=== PATIENT | female | born 1950 | race American Indian/Alaskan Native ===

== ENCOUNTER 2016-12-02 01:27 | Inpatient (IN) | payer BC, MEDICARE ==
--- NOTE | 2016-12-02 01:43 | C.PDOC ---
History Of Present Illness patient states she drank a quart and half of milk on thursday, and then developed nausea and vomiting. Has been taking pepto bismol, without relief. Starting having bilious emesis, 4/10 discomfort.. No chest pain or palpitations Time Seen by Provider: 12/02/16 01:42 Chief Complaint (Nursing): Abdominal Pain History Per: Patient History/Exam Limitations: no limitations Onset/Duration Of Symptoms: Days (3) Current Symptoms Are (Timing): Still Present Context: Other Severity: Moderate Pain Scale Rating Of: 4 Location Of Pain/Discomfort: Epigastric Radiation Of Pain To:: None Quality Of Discomfort: Dull, Aching, Cramping Associated Symptoms: Nausea, Vomiting. denies: Fever, Chills, Diarrhea Exacerbating Factors: None Alleviating Factors: None Last Bowel Movement: Yesterday Recent travel outside of the [place]: No Additional History Per: Patient Past Medical History Reviewed: Historical Data, Nursing Documentation, Vital Signs Vital Signs: Last Vital Signs Temp 98.3 F 12/02/16 03:48 Pulse 101 H 12/02/16 06:58 Resp 24 12/02/16 06:58 BP 147/94 H 12/02/16 06:58 Pulse Ox 98 12/02/16 06:58 - Medical History PMH: HTN Family History: States: No Known Family Hx - Social History Hx Alcohol Use: No Hx Substance Use: No Review Of Systems Constitutional: Negative for: Fever, Chills Eyes: Negative for: Redness ENT: Negative for: Throat Pain Cardiovascular: Negative for: Chest Pain Respiratory: Negative for: Shortness of Breath Gastrointestinal: Positive for: Nausea, Vomiting, Abdominal Pain Genitourinary: Negative for: Dysuria Musculoskeletal: Negative for: Back Pain Skin: Negative for: Bruising Neurological: Negative for: Weakness Psych: Negative for: Anxiety Physical Exam - Physical Exam Appears: Non-toxic, No Acute Distress Skin: Warm, Dry Head: Normacephalic Eye(s): bilateral: Normal Inspection Oral Mucosa: Moist Neck: Supple Chest: Symmetrical Cardiovascular: Rhythm Regular Respiratory: No Rales, No Rhonchi, No Wheezing Gastrointestinal/Abdominal: Soft, Tenderness, Distention, No Guarding, No Rebound, Hernia (large , reducible umbilical hernia) Back: No CVA Tenderness Extremity: Normal ROM Extremity: Bilateral: Atraumatic, Normal Color And Temperature Pulses: Left Dorsalis Pedis: Normal, Right Dorsalis Pedis: Normal Neurological/Psych: Oriented x3, Normal Speech, Normal Cognition Gait: Steady ED Course And Treatment - Laboratory Results Result Diagrams: 12/02/16 01:58 12/02/16 01:58 ECG: Interpreted By Me, Viewed By Me ECG Rhythm: Sinus Rhythm (107), Nonspecific Changes (occ pvc's, lad, lvh, ) O2 Sat by Pulse Oximetry: 100 Pulse Ox Interpretation: Normal Disposition Counseled Patient/Family Regarding: Studies Performed, Diagnosis - Disposition Disposition Time: 01:43 Condition: FAIR Forms: [facility] (Italian) - Clinical Impression Clinical Impression: Abdominal pain, SBO (small bowel obstruction) Physician Patient Turnover Patient Signed Over To: Ana Maria Khan Handoff Comments: pending call back and disposition
[2016-12-02 02:01] LABS: BASO % 0.4 % (0.0-2.0); EOS # 0.1 K/uL (0.0-0.7); EOS % 0.6 % (0.0-4.0); HEMATOCRIT 35.4 % (34.0-47.0); LYMPH # 1.9 K/uL (1.0-4.3); LYMPH % 19.3 % (20.0-40.0); MEAN CELL VOLUME 76.2 fL (81.0-99.0); MEAN CORPUSCULAR HEMOGLOBIN 25.7 pg (27.0-31.0); MEAN CORPUSCULAR HGB CONC 33.7 g/dL (33.0-37.0); MEAN PLATELET VOLUME 7.2 fL (7.2-11.7); MONO # 0.8 K/uL (0.0-0.8); MONO % 8.4 % (0.0-10.0); NRBC % 0.1 % (0.0-2.0); WHITE BLOOD COUNT 9.9 K/uL (4.8-10.8)
[2016-12-02 02:11] LABS: INR 1.1
[2016-12-02 02:20] LABS: ALB/GLOB RATIO 0.9 (1.0-2.1); BILIRUBIN,TOTAL 1.2 mg/dL (0.2-1.3); CALCIUM 10.2 mg/dl (8.6-10.4)
[2016-12-02 02:31] LABS: TROPONIN I 0.033 ng/mL (0.00-0.120)
[2016-12-02 02:42] LABS: POTASSIUM 4.2 mmol/L (3.6-5.2)
[2016-12-02] MEDS ORDERED: Sodium Chloride 0.9% 1,000 ML IV ONE (02:43)
[2016-12-02] MEDS ORDERED: Iodixanol 320 mg/ml 150 ml Bottle IV ONE (02:53)
[2016-12-02] MEDS ORDERED: Morphine 4 MG/ML VIAL ONE ×3 (03:53→13:10)
--- NOTE | 2016-12-02 08:29 | CT ---
PROCEDURE: CT Abdomen and Pelvis without intravenous contrast HISTORY: Abdominal pain, nausea and vomiting, umbilical hernia COMPARISON: None. TECHNIQUE: Multiple contiguous axial images were performed through the abdomen and pelvis without intravenous contrast. Subsequently, sagittal and coronal reformatted images were obtained. Radiation dose: Total exam DLP = 1085 mGy-cm. This CT exam was performed using one or more of the following dose reduction techniques: Automated exposure control, adjustment of the mA and/or kV according to patient size, and/or use of iterative reconstruction technique. FINDINGS: LOWER THORAX: Mild scattered atelectasis. Coronary calcifications. LIVER: Unremarkable. No gross lesion or ductal dilatation. GALLBLADDER AND BILE DUCTS: Unremarkable. PANCREAS: Atrophic pancreas. SPLEEN: Unremarkable. ADRENALS: Unremarkable. No mass. KIDNEYS AND URETERS: Mild right hydroureteronephrosis without definite obstructing ureteral calculus. Within the region of the distal right ureter, there is a rounded calcific foci measuring 4 millimeters on series 3, image 141 which may represent adjacent calcified phlebolith and/or vascular calcification. VASCULATURE: Scattered atherosclerotic calcifications. BOWEL: High-grade mechanical small bowel obstruction. Majority of the small bowel is fluid-filled and dilated measuring up to 4.5 centimeters. Transition point identified in the neck of the large umbilical hernia. Terminal ileum and colon are decompressed. Few scattered colonic diverticuli are noted. Portion of the mid transverse colon extends into the hernia sac. APPENDIX: No findings to suggest acute appendicitis. PERITONEUM: See below. LYMPH NODES: Unremarkable. No enlarged lymph nodes. BLADDER: Underdistended urinary bladder. REPRODUCTIVE: Fibroid uterus. Trace free fluid within the pelvic cul-de-sac. BONES: Degenerative changes in the spine. OTHER FINDINGS: Vascular calcifications. IMPRESSION: Findings concerning for a high-grade mechanical small bowel obstruction as described above with transition point at the neck of a large umbilical hernia. Clinical correlation for symptoms of incarceration and or strangulation recommended. Mild to moderate right hydroureteronephrosis. Fibroid uterus. Trace free fluid in the pelvic cul-de-sac. Additional findings as above. These findings were preliminarily reported at 4:46 a.m. on 12/02/[address] Rebecca Ray from [facility].
[2016-12-02] MEDS ORDERED: Oxycodone/Acetaminophen 5/325 mg Tab PO PRN (08:56)
--- NOTE | 2016-12-02 08:57 | CP.PCM.CON ---
History of Present Illness - History of Present Illness History of Present Illness: Surgery 66F w PMH of HTN came to ED with Abd Pain, N,V. Symptoms started 4 days ago after eating. Pain is diffuse, non radiating. Non bloody vomiting multiple times. NG tube is placed in ED put out 300cc bilious fluids. Pt tried peptobismal w/o relief. Pt reports having small BM. Denies F/C/D/CP/SOB/dysuria/ hematuriea/hematemesis/hematochezia. Pt had umbilical hernia for a long time. Haven't noticed change in size. CT shows bowel incarcerated umbilical hernia with SBo. Surgery is consulted to evaluate for incarcerated hernia. Pt is scheduled to go to OR for emergent surgery. Pt consented and understood the procedure. Review of Systems - Review of Systems Review of Systems: See HPI Past Patient History - Past Social History Smoking Status: Never Smoked - CARDIAC Hx Hypertension: Yes - GASTROINTESTINAL Other/Comment: HERNIA - PSYCHIATRIC Hx Substance Use: No - SURGICAL HISTORY Hx Surgeries: No Meds Allergies/Adverse Reactions: Allergies Allergy/AdvReac Type Severity Reaction Status Date / Time Penicillins Allergy Verified 12/02/16 01:38 - Medications Medications: Current Medications Hydromorphone HCl (Dilaudid) 0.5 mg IVP Q4H PRN PRN Reason: Pain, severe (8-10) Lactated Ringer's (Lactated Ringer's) 1,000 mls @ 150 mls/hr IV .Q6H40M [facility] Oxycodone/Acetaminophen (Percocet 5/325 Mg Tab) 2 tab PO Q4H PRN PRN Reason: Pain, moderate (4-7) Stop: 12/05/16 08:57 Pantoprazole Sodium (Protonix Inj) 40 mg IVP DAILY [facility] Physical Exam - Constitutional Appears: Non-toxic - Head Exam Head Exam: ATRAUMATIC, NORMAL INSPECTION, NORMOCEPHALIC - Eye Exam Eye Exam: EOMI, Normal appearance, PERRL Pupil Exam: NORMAL ACCOMODATION, PERRL - ENT Exam ENT Exam: Mucous Membranes Moist, Normal Exam - Neck Exam Neck exam: Positive for: Normal Inspection - Respiratory Exam Respiratory Exam: Clear to Auscultation Bilateral, NORMAL BREATHING PATTERN - Cardiovascular Exam Cardiovascular Exam: REGULAR RHYTHM - GI/Abdominal Exam GI & Abdominal Exam: Distended, Hernia, Normal Bowel Sounds, Soft, Tenderness. absent: Firm, Guarding Additional comments: 17m38sp incarcerated umbilical hernia. Mild erythema. TTP. - Extremities Exam Extremities exam: Positive for: full ROM, normal inspection - Back Exam Back exam: NORMAL INSPECTION - Neurological Exam Neurological exam: Alert, CN II-XII Intact, Normal Gait, Oriented x3, Reflexes Normal - Psychiatric Exam Psychiatric exam: Normal Affect, Normal Mood - Skin Skin Exam: Dry, Erythema, Intact, Warm Results - Vital Signs Recent Vital Signs: Last Vital Signs Temp 98.4 F 12/02/16 08:44 Pulse 105 H 12/02/16 08:44 Resp 20 12/02/16 08:44 BP 145/98 H 12/02/16 08:44 Pulse Ox 99 12/02/16 08:44 - Labs Result Diagrams: 12/02/16 01:58 12/02/16 01:58 Labs: Laboratory Results - last 24 hr 12/02/16 12/02/16 12/02/16 01:58 01:58 01:58 WBC 9.9 RBC 4.64 Hgb 11.9 Hct 35.4 MCV 76.2 L MCH 25.7 L MCHC 33.7 RDW 17.0 H Plt Count 734 H MPV 7.2 Neut % (Auto) 71.3 Lymph % (Auto) 19.3 L [place] % (Auto) 8.4 Eos % (Auto) 0.6 Baso % (Auto) 0.4 Neut # 7.1 H Lymph # 1.9 [place] # 0.8 Eos # 0.1 Baso # 0.0 PT 12.4 H INR 1.1 APTT 25 Sodium 140 Potassium 4.2 Chloride 95 L Carbon Dioxide 18 L Anion Gap 31 H BUN 47 H Creatinine 2.5 H Est GFR ( Amer) 23 Est GFR (Non-Af Amer) 19 Random Glucose 154 H Calcium 10.2 Total Bilirubin 1.2 AST 42 H ALT 21 Alkaline Phosphatase 94 Troponin I 0.0330 Total Protein 10.0 H Albumin 4.6 Globulin 5.4 H Albumin/Globulin Ratio 0.9 L Lipase 69 Assessment & Plan - Assessment and Plan (Free Text) Assessment: SBO with incarcerated umbilical hernia -OR today ex lap 11AM -NPO -IVF -NGT : low cont suction -Pain/nausea control -medical management NOMI Morales
[2016-12-02] MEDS ORDERED: Lactated Ringer's 1,000 ML IV SCH ×2 (09:00→16:15)
[2016-12-02] MEDS ORDERED: Lactated Ringer's 1,000 ML ONE (09:17)
--- NOTE | 2016-12-02 09:31 | RAD ---
HISTORY: pre-op COMPARISON: 12/02/2016 FINDINGS: LUNGS: Mild venous congestion. Elevated right hemidiaphragm. NG tube extending into the stomach. Distal tip not well visualized. PLEURA: No significant pleural effusion identified, no pneumothorax apparent. CARDIOVASCULAR: Mild cardiomegaly. OSSEOUS STRUCTURES: Degenerative changes in the spine and shoulders. VISUALIZED UPPER ABDOMEN: Normal. OTHER FINDINGS: None. IMPRESSION: Mild venous congestion. Elevated right hemidiaphragm. NG tube extending into the stomach. Distal tip not well visualized.
--- NOTE | 2016-12-02 09:40 | CP.PCM.PN ---
Subjective - Date & Time of Evaluation Date of Evaluation: 12/02/16 Time of Evaluation: 09:38 - Subjective Subjective: PT SEEN IN THE ED HOLDING AREA WITH DR. SANCHEZ DURING MORNING ROUNDS. + NGT IN PLACE AND TOLERATING WELL. FAMILY AT BEDSIDE. 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 ROCHA AT APPROX 1100 AM TODAY FOR SBO. IVFS ORDERED BY HOLLOW WARE MAKER. AM LABS ORDERED. VTE PROPHYLAXIS ORDERED. WILL F/U WITH PT ONCE SHE COMES TO THE MED SURG FLOOR. NO FURTHER ORDERS AT THIS TIME. Objective - Vital Signs/Intake and Output Vital Signs (last 24 hours): Temp Pulse Resp BP Pulse Ox 98.4 F 105 H 20 145/98 H 99 12/02/16 08:44 12/02/16 08:44 12/02/16 08:44 12/02/16 08:44 12/02/16 08:44 Intake and Output: 12/02/16 12/02/16 06:59 18:59 Output Total 400 Balance -400 - Medications Medications: Current Medications Hydromorphone HCl (Dilaudid) 0.5 mg IVP Q3H PRN PRN Reason: Pain, moderate (4-7) Lactated Ringer's (Lactated Ringer's) 1,000 mls @ 150 mls/hr IV .Q6H40M [facility] Last Admin: 12/02/16 09:32 Dose: 150 mls/hr Pantoprazole Sodium (Protonix Inj) 40 mg IVP DAILY [facility] - Labs Labs: 12/02/16 01:58 12/02/16 01:58 PT 12.4 SECONDS (9.7-12.2) H 12/02/16 01:58 INR 1.1 12/02/16 01:58 APTT 25 SECONDS (21-34) 12/02/16 01:58
[2016-12-02] MEDS ORDERED: Propofol 10 mg/ml Inj (20 ML) ONE ×3 (11:01→15:01)
[2016-12-02] MEDS ORDERED: Lactated Ringer's 1,000 ML IV ONE ×5 (11:50→18:00)
[2016-12-02] MEDS ORDERED: Ciprofloxacin 400mg/200ml D5W 400 MG/200 ML BAG IVPB ONE (12:09)
[2016-12-02] MEDS ORDERED: metroNIDAZOLE IV 500 mg/100 ml 500 MG/100 ML BAG ONE (12:09)
[2016-12-02] MEDS ORDERED: Succinylcholine Chloride 20 mg/ml Syr (5 ml) IV ONE (13:16)
[2016-12-02] MEDS ORDERED: Rocuronium 10 mg/ml (5 ml) ONE (13:16)
[2016-12-02] MEDS ORDERED: Neostigmine Methylsulfate 3mg/3ml Syringe IV ONE (13:17)
[2016-12-02] MEDS ORDERED: White Petrolatum/Mineral Oil Ophth Oint(3.5 gm) ONE (13:17)
[2016-12-02] MEDS ORDERED: Albuterol-Ipratrop 3 mg / 0.5 (3 ml) UD INH STA ×2 (14:45)
[2016-12-02] MEDS ORDERED: Albuterol-Ipratrop 3 mg / 0.5 (3 ml) UD ONE (14:49)
--- NOTE | 2016-12-02 14:49 | PCM.SURG1 ---
Surgeon's Initial Post Op Note - Surgeon's Notes Surgeon: Dr. Winter Mushroom Cultivator: Dr. Mabry PGY3, Dr. Cm PGY1 Type of Anesthesia: General Endo Pre-Operative Diagnosis: Incarcerated ventral hernia, Bowel obstruction Operative Findings: incarcerated umbilical hernia, containing colon and omentum Post-Operative Diagnosis: Incarcerated Umbilical hernia Operation Performed: Umbilical hernia repair with mesh Specimen/Specimens Removed: ventrio mesh inserted Estimated Blood Loss: EBL {In ML}: 30 Blood Products Given: N/A Drains Used: No Drains Post-Op Condition: Good Date of Surgery/Procedure: 12/02/16 Time of Surgery/Procedure: 14:51
[2016-12-02] MEDS ORDERED: Propofol 10 mg/ml 1,000 MG/100 ML VIAL IV PRN (15:01)
--- NOTE | 2016-12-02 15:43 | RAD ---
PROCEDURE: CHEST RADIOGRAPH, 1 VIEW HISTORY: PT IN PACU COMPARISON: 12/02/2016 0900 hours FINDINGS: LUNGS: Interval left upper lobe peripheral opacity - atelectasis with left pleural reaction suspect PLEURA: No pneumothorax or pleural fluid seen. CARDIOVASCULAR: Normal. OSSEOUS STRUCTURES: No significant abnormalities. VISUALIZED UPPER ABDOMEN: Normal. OTHER FINDINGS: Interval insertion endotracheal tube- tip 2 cm cephalad to peter NG tube tip in stomach Asymmetrically elevated right hemidiaphragm-unchanged IMPRESSION: Interval opacity lateral left upper lung given short interval time frame atelectasis with or without left pleural reaction favored. Interval insertion endotracheal tube -tip position 2 cm cephalad to peter NG tube tip in stomach
[2016-12-02 16:57] LABS: RBC URINE 3 /hpf (0-3); URINE BACTERIA RARE (<OCC); URINE BILIRUBIN NEGATIVE (NEGATIVE); URINE BLOOD NEGATIVE (NEGATIVE); URINE COLOR Yellow (YELLOW); URINE GLUCOSE (UA) NORMAL (Normal); URINE KETONE NEGATIVE (NEGATIVE); URINE LEUKOCYTE ESTERASE NEG Leu/uL (Negative); URINE PROTEIN 1+ mg/dL (NEGATIVE); URINE UROBILINOGEN NORMAL mg/dL (0.2-1.0); WBC URINE 6 /hpf (0-5)
[2016-12-02] MEDS ORDERED: Propofol 10 mg/ml 1,000 MG/100 ML VIAL ONE (17:36)
[2016-12-02 19:47] LABS: BASO % 0.1 % (0.0-2.0); HEMATOCRIT 29.4 % (34.0-47.0); LYMPH # 1.9 K/uL (1.0-4.3); LYMPH % 16.4 % (20.0-40.0); MEAN CELL VOLUME 77.3 fL (81.0-99.0); MEAN CORPUSCULAR HEMOGLOBIN 24.3 pg (27.0-31.0); MEAN CORPUSCULAR HGB CONC 31.4 g/dL (33.0-37.0); MEAN PLATELET VOLUME 7.2 fL (7.2-11.7); MONO # 1.2 K/uL (0.0-0.8); MONO % 10.4 % (0.0-10.0); POTASSIUM 4.4 mmol/L (3.6-5.2); RED CELL DISTRIBUTION WIDTH 16.9 % (11.5-14.5); WHITE BLOOD COUNT 11.4 K/uL (4.8-10.8)
[2016-12-02 19:49] LABS: BILIRUBIN,TOTAL 0.5 mg/dL (0.2-1.3)
[2016-12-02 19:50] LABS: CALCIUM 7.9 mg/dl (8.6-10.4); TOTAL PROTEIN 7.4 g/dL (6.3-8.3)
--- NOTE | 2016-12-02 20:48 | CP.PCM.HP ---
History of Present Illness - History of Present Illness History of Present Illness: Chief complaint: Abdominal pain History present illness: 66-year-old female with history of long-standing hypertension, came to the emergency room with the worsening abdominal pain. Pain started gradually over the course of 3 days, associated with the nausea. The pain was over the umbilical area, radiating to the upper abdomen. Associated with vomiting. Vomiting mostly of bilious in character. The discomfort still noted. She was not able to eat well. Last night her symptoms got worse, today she was not able to eat anything, and he came to the emergency room. She did not have any history of surgical intervention in the past. Past medical history: Hypertension, on medications. Denies any asthma, or any diabetes. Surgical history: None Allergies: Allergic to penicillin Personal history: Nonsmoker nonalcoholic. 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 Review of system: Currently having no headache. Denies any chest pain, no cough or cold noted. Abdominal pain, associated with the nausea and vomiting Vital signs reviewed No neck vein distention noted Chest good air entry bilaterally, no wheezing or rales noted CVS regular heart sound, no murmur noted Periumbilical swelling and tenderness noted. Extremities no pedal edema RATER ASSOCIATE alert awake oriented 3, no functional neurological deficit Labs reviewed Elevated creatinine level noted. CT of the abdomen showing evidence of small bowel obstruction with the incarcerated hernia Patient was seen by surgical team already. Scheduled to have the surgery. Assessment and recommendation: 66-year-old female with history of hypertension now admitted with the intestinal obstruction, small bowel, possibly surgical intervention needed emergency. Spoke to the family in details. Patient will need a surgical intervention. Routine postoperative care needed at this time. Blood pressure control. DVT and GI prophylaxis. And will follow the patient. Discussed with the surgical team. Present on Admission - Present on Admission Any Indicators Present on Admission: No History of DVT/PE: No History of Uncontrolled Diabetes: No Urinary Catheter: No Decubitus Ulcer Present: No Past Patient History - Past Social History Smoking Status: Never Smoked - CARDIAC Hx Hypertension: Yes - GASTROINTESTINAL Other/Comment: HERNIA - PSYCHIATRIC Hx Substance Use: No - SURGICAL HISTORY Hx Surgeries: No Meds Allergies/Adverse Reactions: Allergies Allergy/AdvReac Type Severity Reaction Status Date / Time Penicillins Allergy Verified 12/02/16 01:38 Results - Vital Signs Recent Vital Signs: Last Vital Signs Temp 97.3 F L 12/02/16 14:30 Pulse 85 12/02/16 17:00 Resp 15 12/02/16 17:00 BP 128/70 12/02/16 17:00 Pulse Ox 100 12/02/16 17:00 - Labs Result Diagrams: 12/02/16 19:35 12/02/16 19:35 Labs: Laboratory Results - last 24 hr 12/02/16 12/02/16 12/02/16 01:58 01:58 01:58 WBC 9.9 RBC 4.64 Hgb 11.9 Hct 35.4 MCV 76.2 L MCH 25.7 L MCHC 33.7 RDW 17.0 H Plt Count 734 H MPV 7.2 Neut % (Auto) 71.3 Lymph % (Auto) 19.3 L [place] % (Auto) 8.4 Eos % (Auto) 0.6 Baso % (Auto) 0.4 Neut # 7.1 H Lymph # 1.9 [place] # 0.8 Eos # 0.1 Baso # 0.0 PT 12.4 H INR 1.1 APTT 25 Sodium 140 Potassium 4.2 Chloride 95 L Carbon Dioxide 18 L Anion Gap 31 H BUN 47 H Creatinine 2.5 H Est GFR ( Amer) 23 Est GFR (Non-Af Amer) 19 Random Glucose 154 H Calcium 10.2 Total Bilirubin 1.2 AST 42 H ALT 21 Alkaline Phosphatase 94 Troponin I 0.0330 Total Protein 10.0 H Albumin 4.6 Globulin 5.4 H Albumin/Globulin Ratio 0.9 L Lipase 69 Procalcitonin Urine Color Urine Clarity Urine pH Ur Specific [place] Urine Protein Urine Glucose (UA) Urine Ketones Urine Blood Urine Nitrate Urine Bilirubin Urine Urobilinogen Ur Leukocyte Esterase Urine WBC (Auto) Urine RBC (Auto) Ur Squamous Epith Cells Urine Bacteria Blood Type Antibody Screen 12/02/16 12/02/16 12/02/16 09:44 10:34 15:55 WBC RBC Hgb Hct MCV MCH MCHC RDW Plt Count MPV Neut % (Auto) Lymph % (Auto) [place] % (Auto) Eos % (Auto) Baso % (Auto) Neut # Lymph # [place] # Eos # Baso # PT INR APTT Sodium Potassium Chloride Carbon Dioxide Anion Gap BUN Creatinine Est GFR ( Amer) Est GFR (Non-Af Amer) Random Glucose Calcium Total Bilirubin AST ALT Alkaline Phosphatase Troponin I Total Protein Albumin Globulin Albumin/Globulin Ratio Lipase Procalcitonin 1.09 H Urine Color Yellow Urine Clarity Hazy Urine pH 5.0 Ur Specific [place] 1.013 Urine Protein 1+ H Urine Glucose (UA) Normal Urine Ketones Negative Urine Blood Negative Urine Nitrate Negative Urine Bilirubin Negative Urine Urobilinogen Normal Ur Leukocyte Esterase Neg Urine WBC (Auto) 6 H Urine RBC (Auto) 3 Ur Squamous Epith Cells 1 Urine Bacteria Rare Blood Type O NEGATIVE Antibody Screen Negative 12/02/16 12/02/16 19:35 19:35 WBC 11.4 H RBC 3.81 Hgb 9.2 L D Hct 29.4 L MCV 77.3 L MCH 24.3 L MCHC 31.4 L RDW 16.9 H Plt Count 563 H D MPV 7.2 Neut % (Auto) 73.1 Lymph % (Auto) 16.4 L [place] % (Auto) 10.4 H Eos % (Auto) 0.0 Baso % (Auto) 0.1 Neut # 8.3 H Lymph # 1.9 [place] # 1.2 H Eos # 0.0 Baso # 0.0 PT INR APTT Sodium 140 Potassium 4.4 Chloride 102 Carbon Dioxide 27 Anion Gap 16 BUN 46 H Creatinine 1.9 H Est GFR ( Amer) 32 Est GFR (Non-Af Amer) 26 Random Glucose 111 H Calcium 7.9 L Total Bilirubin 0.5 AST 21 ALT 23 Alkaline Phosphatase 62 Troponin I Total Protein 7.4 Albumin 3.7 Globulin 3.7 Albumin/Globulin Ratio 1.0 Lipase Procalcitonin Urine Color Urine Clarity Urine pH Ur Specific [place] Urine Protein Urine Glucose (UA) Urine Ketones Urine Blood Urine Nitrate Urine Bilirubin Urine Urobilinogen Ur Leukocyte Esterase Urine WBC (Auto) Urine RBC (Auto) Ur Squamous Epith Cells Urine Bacteria Blood Type Antibody Screen
--- NOTE | 2016-12-02 20:49 | CP.PCM.PN ---
Subjective - Date & Time of Evaluation Date of Evaluation: 12/02/16 Time of Evaluation: 20:49 - Subjective Subjective: Patient underwent a surgical intervention today. Umbilical hernia repair with mesh. ESBL is only 30. Patient postoperatively developed respiratory distress, intubated. Chest x-ray showing evidence of pulmonary edema pattern. Patient received Lasix of 20 mg, and made urine output of 700, following that the patient was doing well. Extubated. Clinically now patient is doing well Patient is not in any distress. Chest good air entry bilaterally regular heart sound noted. Blood pressure is 140/70. Repeat labs reviewed Hemoglobin is on the low side. No active bleeding at this time. We'll repeat the hemoglobin tomorrow. Family currently pending. Clinically stable. Patient will be admitted to the telemetry. Close to monitor and will follow the patient. Objective - Vital Signs/Intake and Output Vital Signs (last 24 hours): Temp Pulse Resp BP Pulse Ox 97.3 F L 85 15 128/70 100 12/02/16 14:30 12/02/16 17:00 12/02/16 17:00 12/02/16 17:00 12/02/16 17:00 Intake and Output: 12/02/16 12/03/16 18:59 06:59 Output Total 550 Balance -550 - Medications Medications: Current Medications Hydromorphone HCl (Dilaudid) 0.5 mg IVP Q3H PRN PRN Reason: Pain, moderate (4-7) Lactated Ringer's (Lactated Ringer's) 1,000 mls @ 150 mls/hr IV .Q6H40M [facility] Last Admin: 12/02/16 09:32 Dose: 150 mls/hr Ciprofloxacin (Cipro 400mg/200ml Dsw) 400 mg in 200 mls @ 133 mls/hr IVPB Q12H [facility] Stop: 12/03/16 00:01 Metronidazole (Flagyl) 500 mg in 100 mls @ 100 mls/hr IVPB Q8 [facility] Stop: 12/03/16 22:01 Propofol (Diprivan) 1,000 mg in 100 mls @ 19.595 mls/hr IV .Q5H7M PRN; Protocol ; 30 MCG/KG/MIN PRN Reason: TITRATE PER MD ORDER Lactated Ringer's (Lactated Ringer's) 1,000 mls @ 150 mls/hr IV .Q6H40M [facility] Pantoprazole Sodium (Protonix Inj) 40 mg IVP DAILY [facility] Last Admin: 12/02/16 10:38 Dose: 40 mg - Labs Labs: 12/02/16 19:35 12/02/16 19:35 PT 12.4 SECONDS (9.7-12.2) H 12/02/16 01:58 INR 1.1 12/02/16 01:58 APTT 25 SECONDS (21-34) 12/02/16 01:58
[2016-12-02] MEDS: metroNIDAZOLE IV 500 mg/100 ml 500 MG/100 ML BAG IVPB SCH (21:09)
[2016-12-03] MEDS ORDERED: Ciprofloxacin 400mg/200ml D5W 400 MG/200 ML BAG IVPB SCH
[2016-12-03] MEDS ORDERED: Benzocaine/Menthol (Cepacol) Lozenge MT PRN (00:32)
--- NOTE | 2016-12-03 01:57 | OP ---
PROCEDURE DATE: 12/02/2016 PREOPERATIVE DIAGNOSIS: Intestinal obstruction, incarcerated hernia. POSTOPERATIVE DIAGNOSIS: Intestinal obstruction, incarcerated hernia. PROCEDURE CARRIED OUT: Exploratory laparotomy, lysis of adhesions, reduction of incarcerated hernia, and repair of hernia with mesh. SURGEON: Jorge Luis Winter Jr., MD GENERAL ASSEMBLER: Dr. Mabry, resident. ANESTHESIA ADMINISTERED BY: INDICATIONS: The patient is an older middle-aged woman presenting with abdominal pain, known chronic umbilical hernia. The hernia was acutely incarcerated with pain and bowel obstruction was demonstrated both by clinical symptoms and CAT scan findings. The nasogastric tube was inserted preoperatively. OPERATIVE FINDINGS: There was no bowel, there was no infarcted bowel. There was transverse colon, which was trapped with very hard stool. We had to enlarge the hernia to allow for reduction of the transverse colon. A limited abdominal exploration was done apart from this. DESCRIPTION OF PROCEDURE: The patient was given general anesthesia and intravenous antibiotics. Venodyne boots were applied. Scott catheter and nasogastric tube have previously been inserted. A midline incision was carried out, which had to be extended to allow for reduction of the contents. There was incarcerated large-bowel colon. After this had all been reduced, the adhesions reduced. We then placed a large mesh. The mesh was a 13.8 x 17.8 Ventrio hernia patch. This was placed into position in the peritoneal cavity with the omentum between in the bowel and up against the abdominal wall. This was secured to the abdominal wall sutures and the fascia was closed on top of this. After this was done, the skin was closed with subcutaneous closure and skin clips on the skin. Blood loss was less than 100 mL. Operation carried out is exploratory laparotomy, lysis of adhesions, repair of incarcerated ventral hernia with mesh. Jorge Luis Winter Jr., MD cc: Aylin Hernandez MD
[2016-12-03] MEDS: Lactated Ringer's 1,000 ML IV SCH ×2 (04:36→09:40)
[2016-12-03] MEDS: metroNIDAZOLE IV 500 mg/100 ml 500 MG/100 ML BAG IVPB SCH ×3 (05:37→22:03)
[2016-12-03 07:15] LABS: HEMATOCRIT 26.6 % (34.0-47.0); MEAN CELL VOLUME 77.5 fL (81.0-99.0); MEAN CORPUSCULAR HGB CONC 32.2 g/dL (33.0-37.0); MEAN PLATELET VOLUME 7.5 fL (7.2-11.7); RED CELL DISTRIBUTION WIDTH 17.3 % (11.5-14.5); WHITE BLOOD COUNT 10.2 K/uL (4.8-10.8)
[2016-12-03 07:25] LABS: ALB/GLOB RATIO 0.9 (1.0-2.1); BILIRUBIN,TOTAL 0.6 mg/dL (0.2-1.3); TOTAL PROTEIN 6.9 g/dL (6.3-8.3)
[2016-12-03 07:26] LABS: CALCIUM 7.8 mg/dl (8.6-10.4)
--- NOTE | 2016-12-03 07:49 | CP.PCM.PN ---
Subjective - Date & Time of Evaluation Date of Evaluation: 12/03/16 Time of Evaluation: 07:44 - Subjective Subjective: General Surgery - Dr. Winter Pt S&E s/p hernia repair yesterday. Pt was reintubated post-op but since has been extubated, now on the floor and doing well. She is working with incentive spirometer 10x/hr and currently ~500. She has abdominal pain worse with sitting up and trying to get out of bed but states currently pain meds are adequate. Her only complaint is discomfort from NGT. She denies any N/V, F/C, SOb/Cp, no flatus or BM. NGT currently draining yellow fluid, 550cc since surgery. Lewis catheter in place w/ clear yellow urine, 1350/12hrs. Objective - Vital Signs/Intake and Output Vital Signs (last 24 hours): Temp Pulse Resp BP Pulse Ox 98.2 F 96 H 20 138/67 97 12/03/16 04:00 12/03/16 04:03 12/03/16 04:00 12/03/16 04:00 12/03/16 04:00 Intake and Output: 12/03/16 12/03/16 06:59 18:59 Intake Total 440 Output Total 1352 Balance -912 - Medications Medications: Current Medications Benzocaine/Menthol (Cepacol Sore Throat) 1 brandie MT Q1 PRN PRN Reason: Sore Throat Last Admin: 12/03/16 02:48 Dose: 1 brandie Heparin Sodium (Porcine) (Heparin) 5,000 units SC Q8 DEON Hydromorphone HCl (Dilaudid) 0.5 mg IVP Q3H PRN PRN Reason: Pain, moderate (4-7) Metronidazole (Flagyl) 500 mg in 100 mls @ 100 mls/hr IVPB Q8 DEON Stop: 12/03/16 22:01 Last Admin: 12/03/16 05:37 Dose: 100 mls/hr Lactated Ringer's (Lactated Ringer's) 1,000 mls @ 80 mls/hr IV .[id number] DEON Last Admin: 12/03/16 04:36 Dose: 80 mls/hr Mineral Oil (Fleet Mineral Oil Enema) 135 ml RC ONCE ONE Stop: 12/03/16 07:43 Morphine Sulfate (Morphine) 2 mg IVP Q4 PRN PRN Reason: Pain, moderate (4-7) Last Admin: 12/03/16 04:57 Dose: 2 mg Pantoprazole Sodium (Protonix Inj) 40 mg IVP DAILY DEON Last Admin: 12/02/16 10:38 Dose: 40 mg - Labs Labs: 12/03/16 06:38 12/03/16 06:38 PT 12.4 SECONDS (9.7-12.2) H 12/02/16 01:58 INR 1.1 12/02/16 01:58 APTT 25 SECONDS (21-34) 12/02/16 01:58 - Constitutional Appears: No Acute Distress - Head Exam Head Exam: ATRAUMATIC, NORMAL INSPECTION, NORMOCEPHALIC - Eye Exam Eye Exam: Normal appearance - Respiratory Exam Respiratory Exam: NORMAL BREATHING PATTERN. absent: Respiratory Distress - GI/Abdominal Exam GI & Abdominal Exam: Soft, Tenderness (appropriately). absent: Distended, Guarding, Rebound Additional comments: dressing C/D/I - Neurological Exam Neurological Exam: Alert, Oriented x3 - Psychiatric Exam Psychiatric exam: Normal Affect, Normal Mood - Skin Skin Exam: Dry, Intact Assessment and Plan - Assessment and Plan (Free Text) Assessment: 66yo F s/p repair of incarcerated umbilical hernia, POD #1 -DC lewis catheter -Continue NGT to low cont. suction -May have ice chips and throat spray -Pain control prn -Abdominal binder prn for mobility -OOB to chair and encourage incentive spirometer DW Dr. Moy Mabry PGY3
[2016-12-03] MEDS ORDERED: Mineral Oil Enema 135 ml RC ONE (08:30)
--- NOTE | 2016-12-03 13:58 | RAD ---
HISTORY: chf COMPARISON: Chest x-ray performed 12/02/16 TECHNIQUE: Chest, one view. FINDINGS: Nasogastric tube extends expected location of the stomach. LUNGS: Residual opacities within the left upper lobe. Mild pulmonary venous congestion. PLEURA: No significant pleural effusion identified. No definite pneumothorax . CARDIOVASCULAR: Mild cardiomegaly. Atherosclerotic calcifications of the aortic knob. OSSEOUS STRUCTURES: Mild degenerative changes. VISUALIZED UPPER ABDOMEN: Elevation of the right hemidiaphragm. OTHER FINDINGS: None. IMPRESSION: Residual opacities within the left upper lobe. Mild pulmonary venous congestion. Mild cardiomegaly. Atherosclerotic calcifications of the aortic knob. Nasogastric tube extends to the expected location of the stomach.
[2016-12-03] MEDS: Ciprofloxacin 200mg/100ml D5W 100 ML IVPB SCH (21:15)
--- NOTE | 2016-12-03 23:30 | CARD ---
APPROVED REPORT EXAM: Two-dimensional and M-mode echocardiogram with Doppler and color Doppler. Other Information Quality : GoodRhythm : NSR INDICATION Congestive Heart Failure RISK FACTORS Hypertension 2D DIMENSIONS IVSd1.3 (0.7-1.1cm)LVDd4.7 (3.9-5.9cm) LVOT Diameter2.5 (1.8-2.4cm)PWd1.2 (0.7-1.1cm) LVDs3.5 (2.5-4.0cm)FS (%) 25.2 % LVEF (%)49.7 (>50%) M-Mode DIMENSIONS Left Atrium (MM)4.40 (2.5-4.0cm)Aortic Root3.31 (2.2-3.7cm) Aortic Cusp Exc.1.53 (1.5-2.0cm) Aortic Valve AoV Peak Boewpyen946.9cm/sAoV VTI41.2cmAO Peak GR.27mmHg LVOT Peak Zrhldmix973.7cm/sLVOT VTI21.19cmAO Mean GR.16mmHg BRIAN (VMAX)2.85yw0KMD (VTI)2.46cm2 Mitral Valve E/A ratio0.0 TDI E/Lateral E'0.0E/Medial E'0.0 Tricuspid Valve TR Peak Bqxkajsy998mq/sTR Peak Gr.90yoLzOOLX17zsHs LEFT VENTRICLE The left ventricle is normal size. There is mild to moderate concentric left ventricular hypertrophy. Left ventricle systolic function is low normal. The Ejection Fraction is 45-50%. There is normal LV segmental wall motion. The left ventricular diastolic function is normal. No left ventricle thrombus noted on this study. RIGHT VENTRICLE The right ventricle is normal size. There is normal right ventricular wall thickness. The right ventricular systolic function is normal. ATRIA The left atrium is mildly dilated. The right atrium size is normal. The interatrial septum is intact with no evidence for an atrial septal defect. AORTIC VALVE The aortic valve is mildly to moderately thickened. Cannot rule out vegetation. Suggest BRADEN. No aortic regurgitation is present. There is no aortic valvular stenosis. Cannot exclude aortic valvular vegetation. Suggest BRADEN. MITRAL VALVE The mitral valve is normal in structure. There is no evidence of mitral valve prolapse. There is no mitral valve stenosis. Mitral regurgitation is trace. TRICUSPID VALVE The tricuspid valve is normal in structure. There is trace tricuspid regurgitation. Right ventricular systolic pressure is estimated at less than 30 mmHg. There is no pulmonary hypertension. PULMONIC VALVE The pulmonic valve is not well visualized. There is no pulmonic valvular regurgitation. GREAT VESSELS The aortic root is normal in size. PERICARDIAL EFFUSION There is no significant pericardial effusion. <Conclusion> Left ventricle systolic function is low normal. The Ejection Fraction is 45-50%. Hypertensive heart disease. The aortic valve is mildly to moderately thickened. Cannot rule out vegetation. Suggest BRADEN. No aortic regurgitation is present. Mitral regurgitation is trace. There is trace tricuspid regurgitation. There is no pulmonary hypertension. There is no pulmonic valvular regurgitation.
--- NOTE | 2016-12-04 01:32 | CP.PCM.PN ---
Subjective - Date & Time of Evaluation Date of Evaluation: 12/04/16 Time of Evaluation: 01:00 - Subjective Subjective: Overnight resident was called by nurse for run of Vta. Patient was evaluated by resident. Patient was sleeping upon arrival, denied any cp, nausea, diaphoresis, numbness or tingling. She states she has been a little sob, but contributes that to her recent surgery. Objective - Vital Signs/Intake and Output Vital Signs (last 24 hours): Temp Pulse Resp BP Pulse Ox 98.6 F 89 20 145/88 97 12/03/16 23:15 12/03/16 23:15 12/03/16 23:15 12/03/16 23:15 12/03/16 23:15 - Medications Medications: Current Medications Amlodipine Besylate (Norvasc) 10 mg PO DAILY [facility] Benzocaine/Menthol (Cepacol Sore Throat) 1 brandie MT Q1 PRN PRN Reason: Sore Throat Last Admin: 12/03/16 02:48 Dose: 1 brandie Furosemide (Lasix) 20 mg IVP ONCE [facility] Last Admin: 12/03/16 18:45 Dose: 20 mg Heparin Sodium (Porcine) (Heparin) 5,000 units SC Q12 DEON Last Admin: 12/03/16 22:02 Dose: 5,000 units Ciprofloxacin (Cipro 200mg/100ml D5w) 100 mls @ 67 mls/hr IVPB Q12H [facility] Last Admin: 12/03/16 21:15 Dose: 67 mls/hr Metoprolol Tartrate (Lopressor) 25 mg PO BID [facility] Last Admin: 12/03/16 18:44 Dose: 25 mg Morphine Sulfate (Morphine) 2 mg IVP Q4 PRN PRN Reason: Pain, moderate (4-7) Last Admin: 12/03/16 19:27 Dose: 2 mg Pantoprazole Sodium (Protonix Inj) 40 mg IVP DAILY [facility] Last Admin: 12/03/16 10:54 Dose: 40 mg - Labs Labs: 12/03/16 06:38 12/03/16 06:38 PT 12.4 SECONDS (9.7-12.2) H 12/02/16 01:58 INR 1.1 12/02/16 01:58 APTT 25 SECONDS (21-34) 12/02/16 01:58 - Respiratory Exam Respiratory Exam: NORMAL BREATHING PATTERN - Cardiovascular Exam Cardiovascular Exam: Irregular Rhythm, +S1, +S2 Assessment and Plan - Assessment and Plan (Free Text) Assessment: Irregular Rhythm Strip - EKG was ordered - no obvious changes from prior ekg Correlation between rhythm strip and EKG, it appears the patient had a period of paroxysmal a fib with interventricular conduction delay. Patient is currently on Heparin for DVT prophylaxis, but may need to be on full dose anti- coagulation. Will call to notify patient's primary team. Case discussed with Dr. Raimundo Pro Arabella PGY1
[2016-12-04] MEDS: Ciprofloxacin 200mg/100ml D5W 100 ML IVPB SCH ×2 (05:52→18:05)
[2016-12-04 09:12] LABS: HEMATOCRIT 27.8 % (34.0-47.0); MEAN CELL VOLUME 77.4 fL (81.0-99.0); MEAN CORPUSCULAR HEMOGLOBIN 25.1 pg (27.0-31.0); MEAN CORPUSCULAR HGB CONC 32.5 g/dL (33.0-37.0); MEAN PLATELET VOLUME 7.3 fL (7.2-11.7); RED CELL DISTRIBUTION WIDTH 17.6 % (11.5-14.5); WHITE BLOOD COUNT 14.6 K/uL (4.8-10.8)
[2016-12-04 09:24] LABS: ALB/GLOB RATIO 0.9 (1.0-2.1); BILIRUBIN,TOTAL 0.6 mg/dL (0.2-1.3); TOTAL PROTEIN 8.1 g/dL (6.3-8.3)
[2016-12-04 09:25] LABS: CALCIUM 8.6 mg/dl (8.6-10.4)
--- NOTE | 2016-12-04 09:58 | CP.PCM.PN ---
Subjective - Date & Time of Evaluation Date of Evaluation: 12/03/16 Time of Evaluation: 09:57 - Subjective Subjective: Patient was in the mean the evening time, at the time patient was having some shortness of breath. Oxygen saturation is on the low side. Some cough and mucus production also noted. Tachycardia present in the limited monitoring. Postoperative. Wound is verified. Chest minimal expected wheezing noted. Leg edema, 1+ noted Echo. Current exam is done, pending results. Assessment and recommendation: 66-year-old female with a chronic hypertension, admitted with a incarcerated ventral hernia, status post surgery. Postoperatively patient developed a CHF. Doing well at this time. Still having episodes of SOB, mild hypoxia noted. IV fluid stopped. Lasix ordered today. Will get the echo report. Possible cardiology evaluation may be needed. DVT prophylaxis and will follow the patient Objective - Vital Signs/Intake and Output Vital Signs (last 24 hours): Temp Pulse Resp BP Pulse Ox 98.2 F 90 20 145/84 96 12/04/16 07:20 12/04/16 07:30 12/04/16 07:20 12/04/16 07:20 12/04/16 07:20 - Medications Medications: Current Medications Amlodipine Besylate (Norvasc) 10 mg PO DAILY [facility] Benzocaine/Menthol (Cepacol Sore Throat) 1 brandie MT Q1 PRN PRN Reason: Sore Throat Last Admin: 12/03/16 02:48 Dose: 1 brandie Bisacodyl (Dulcolax) 10 mg VT ONCE ONE Stop: 12/04/16 10:01 Furosemide (Lasix) 20 mg IVP ONCE [facility] Last Admin: 12/03/16 18:45 Dose: 20 mg Heparin Sodium (Porcine) (Heparin) 5,000 units SC Q12 DEON Last Admin: 12/03/16 22:02 Dose: 5,000 units Ciprofloxacin (Cipro 200mg/100ml D5w) 100 mls @ 67 mls/hr IVPB Q12H [facility] Last Admin: 12/04/16 05:52 Dose: 67 mls/hr Metoprolol Tartrate (Lopressor) 50 mg PO BID [facility] Morphine Sulfate (Morphine) 2 mg IVP Q4 PRN PRN Reason: Pain, moderate (4-7) Last Admin: 12/03/16 19:27 Dose: 2 mg Ondansetron HCl (Zofran Inj) 4 mg IVP Q4 PRN PRN Reason: Nausea/Vomiting Last Admin: 12/04/16 03:44 Dose: 4 mg Pantoprazole Sodium (Protonix Inj) 40 mg IVP DAILY [facility] Last Admin: 12/03/16 10:54 Dose: 40 mg - Labs Labs: 12/04/16 09:02 12/04/16 09:02 PT 12.4 SECONDS (9.7-12.2) H 12/02/16 01:58 INR 1.1 12/02/16 01:58 APTT 25 SECONDS (21-34) 12/02/16 01:58
--- NOTE | 2016-12-04 09:59 | CP.PCM.PN ---
Subjective - Date & Time of Evaluation Date of Evaluation: 12/04/16 Time of Evaluation: 09:58 - Subjective Subjective: This morning patient was since to be much better, less tachycardia noted. Last night had an episode of tachyarrhythmia. Cough noted, the mucus is slight blood noted. No chest pain. Feeling better otherwise. Mild exertional dyspnea noted. On examination: HEENT PERRLA, neck supple No thyromegaly was noted and no cervical adenopathy noted Clear lungs CVS regular heart sound, no murmur Postop abdomen Left leg edema CASING TIER alert awake oriented x3 no functional neurological deficit. Renal function is improving. Echo Crago showing evidence of reduced EF. Also, aortic valve thickening noted. Hypertensive heart disease. Assessment and recommendation: 66-year-old female admitted with incarcerated ventral hernia. Postop developed a suspected CHF. Likely fluid overload. Renal insufficiency. Hypertensive heart disease. Underlaying heart disease cannot be ruled out. Advised the patient regarding the cardiology evaluation, and we'll get a cartilage a consultation. But patient does not want any angiogram at this time. Will continue the current treatment out of bed to chair. Objective - Vital Signs/Intake and Output Vital Signs (last 24 hours): Temp Pulse Resp BP Pulse Ox 98.2 F 90 20 145/84 96 12/04/16 07:20 12/04/16 07:30 12/04/16 07:20 12/04/16 07:20 12/04/16 07:20 - Medications Medications: Current Medications Amlodipine Besylate (Norvasc) 10 mg PO DAILY [facility] Benzocaine/Menthol (Cepacol Sore Throat) 1 brandie MT Q1 PRN PRN Reason: Sore Throat Last Admin: 12/03/16 02:48 Dose: 1 brandie Bisacodyl (Dulcolax) 10 mg NC ONCE ONE Stop: 12/04/16 10:01 Furosemide (Lasix) 20 mg IVP ONCE [facility] Last Admin: 12/03/16 18:45 Dose: 20 mg Heparin Sodium (Porcine) (Heparin) 5,000 units SC Q12 DEON Last Admin: 12/03/16 22:02 Dose: 5,000 units Ciprofloxacin (Cipro 200mg/100ml D5w) 100 mls @ 67 mls/hr IVPB Q12H [facility] Last Admin: 12/04/16 05:52 Dose: 67 mls/hr Metoprolol Tartrate (Lopressor) 50 mg PO BID [facility] Morphine Sulfate (Morphine) 2 mg IVP Q4 PRN PRN Reason: Pain, moderate (4-7) Last Admin: 12/03/16 19:27 Dose: 2 mg Ondansetron HCl (Zofran Inj) 4 mg IVP Q4 PRN PRN Reason: Nausea/Vomiting Last Admin: 12/04/16 03:44 Dose: 4 mg Pantoprazole Sodium (Protonix Inj) 40 mg IVP DAILY [facility] Last Admin: 12/03/16 10:54 Dose: 40 mg - Labs Labs: 12/04/16 09:02 12/04/16 09:02 PT 12.4 SECONDS (9.7-12.2) H 12/02/16 01:58 INR 1.1 12/02/16 01:58 APTT 25 SECONDS (21-34) 12/02/16 01:58
--- NOTE | 2016-12-04 12:44 | CP.PCM.CON ---
History of Present Illness - History of Present Illness History of Present Illness: I was asked to see patient by Dr. Hernandez. patient is a 66 year old female with PMH HTN, who presents initally with SBO. The patient had an incarcerated ventral hernia. The patient underwent successful surgery. The patient was noted to be tachycardic and noted dyspnea. I am consulted for evaluation of CHF. Echocardiogram has been reviewed. The patient has dyspnea with exertion. Review of Systems - Constitutional Constitutional: absent: As Per HPI, Anorexia, Chills, Daytime Sleepiness, Excessive Sweating, Fatigue, Fever, Frequent Falls, Headache, Increased Appetite , Lethargy, Malaise, Night Sweats, Snoring, Sleep Apnea, Weight Gain, Weight Loss, Weakness, Other - EENT Eyes: absent: As Per HPI, Blind Spots, Blurred Vision, Change in Vision, Decreased Night Vision, Diplopia, Discharge, Dry Eye, Exophthalmos, Floaters, Irritation, Itchy Eyes, Loss of Peripheral Vision, Pain, Photophobia, Requires Corrective Lenses, Sees Flashes, Spots in Vision, Tunnel Vision, Other Visual Disturbances, Loss of Vision, Other Ears: absent: As Per HPI, Decreased Hearing, Ear Discharge, Ear Pain, Tinnitus, Abnormal Hearing, Disequilibrium, Dizziness, Other Nose/Mouth/Throat: absent: As Per HPI, Epistaxis, Nasal Congestion, Nasal Discharge, Nasal Obstruction, Nasal Trauma, Nose Pain, Post Nasal Drip, Sinus Pain, Sinus Pressure, Bleeding Gums, Change in Voice, Dental Pain, Dry Mouth, Dysphagia, Halitosis, Hoarsness, Lip Swelling, Mouth Lesions, Mouth Pain, Odynophagia, Sore Throat, Throat Swelling, Tongue Swelling, Facial Pain, Neck Pain, Neck Mass, Other - Breasts Breasts: absent: As Per HPI, Change in Shape, Mass, Pain, Nipple Discharge, Nipple Inversion, Skin Changes, Swelling, Other - Cardiovascular Cardiovascular: Dyspnea - Respiratory Respiratory: absent: As Per HPI, Cough, Dyspnea, Hemoptysis, Dyspnea on Exertion , Wheezing, Snoring, Stridor, Pain on Inspiration, Chest Congestion, Excessive Mucous Production, Change in Mucous Color, Pain with Coughing, Other - Gastrointestinal Gastrointestinal: absent: As Per HPI, Abdominal Pain, Belching, Bloating, Change in Bowel Habits, Change in Stool Character, Coffee Ground Emesis, Constipation, Cramping, Diarrhea, Dyspepsia, Dysphagia, Early Satiety, Excessive Flatus, Fecal Incontinence, Heartburn, Hematemesis, Hematochezia, Loose Stools, Melena, Nausea, Odynophagia, Temesmus, Vomiting, Other - Genitourinary Genitourinary: absent: As Per HPI, Change in Urinary Stream, Difficulty Urinating, Dysuria, Flank Pain, Hematuria, Pyuria, Nocturia, Urinary Incontinence, Urinary Frequency, Urinary Hesitance, Urinary Urgency, Voiding Freq/Small Amts, Freq UTI, Hx Renal/Bladder Calculi, Hx /Renal Surgery, Bladder Distension, Other - Musculoskeletal Musculoskeletal: absent: As Per HPI, Abnormal Gait, Arthralgias, Atrophy, Back Pain, Deformity, Joint Swelling, Limited Range of Motion, Loss of Height, Muscle Cramps, Muscle Weakness, Myalgias, Neck Pain, Numbness, Radiating Pain into Limb, Stiffness, Tingling, Other - Integumentary Integumentary: absent: As Per HPI, Acne, Alopecia, Bleeding Lesions, Change in Hair, Change in Nails, Change in Pigmentation, Changing Lesions, Dry Skin, Erythema, Furuncle, Hirsutism, Lesions, New Lesions, Non-Healing Lesions, Photosensitivity, Pruritus, Rash, Skin Pain, Skin Ulcer, Sores, Striae, Swelling , Unusual Bruising, Wounds, Jaundice, Other - Neurological Neurological: absent: As Per HPI, Abnormal Gait, Abnormal Hearing, Abnormal Movements, Abnormal Speech, Behavioral Changes, Burning Sensations, Confusion, Convulsions, Disequilibrium, Dizziness, Numbness, Focal Weakness, Frequent Falls , Headaches, Lack of Coordination, Loss of Vision, Memory Loss, Paresthesias, Radicular Pain, Restless Legs, Sensory Deficit, Syncope, Tingling, Tremor, Vertigo, Weakness, Other Visual Disturbances, Other - Psychiatric Psychiatric: absent: As Per HPI, Abnormal Sleep Pattern, Anhedonia, Anxiety, Auditory Hallucinations, Behavioral Changes, Change in Appetite, Change in Libido, Confusion, Depression, Difficulty Concentrating, Hallucinations, Homicidal Ideation, Hopelessness, Irritability, Memory Loss, Mood Swings, Panic Attacks, Paranoia, Suicidal Ideation, Visual Hallucinations, Tactile Hallucinations, Other - Endocrine Endocrine: absent: As Per HPI, Change in Body Appearance, Change in Libido, Cold Intolorance, Deepening of Voice, Excessive Sweating, Fatigue, Flushing, Heat Intolorance, Increase in Ring/Shoe/Hat Size, Palpitations, Polydipsia, Polyphagia, Polyuria, Other Past Patient History - Past Social History Smoking Status: Former Smoker - CARDIAC Hx Hypertension: Yes - HEENT Hx Glaucoma: Yes (MILD BOTH EYES) - INTEGUMENTARY Other/Comment: LEFT LEG OPEN WOUND SIZE OF A QUARTER-PATIENT APPLY NEOSPORIN OINTMENT & DSD - MUSCULOSKELETAL/RHEUMATOLOGICAL Hx Falls: No - GASTROINTESTINAL Other/Comment: HERNIA - PSYCHIATRIC Hx Substance Use: No - SURGICAL HISTORY Hx Surgeries: No - ANESTHESIA Hx Anesthesia: Yes Hx Anesthesia Reactions: No Meds Allergies/Adverse Reactions: Allergies Allergy/AdvReac Type Severity Reaction Status Date / Time Penicillins Allergy Verified 12/02/16 01:38 - Medications Medications: Current Medications Amlodipine Besylate (Norvasc) 10 mg PO DAILY [facility] Last Admin: 12/04/16 10:43 Dose: 10 mg Benzocaine/Menthol (Cepacol Sore Throat) 1 brandie MT Q1 PRN PRN Reason: Sore Throat Last Admin: 12/03/16 02:48 Dose: 1 brandie Furosemide (Lasix) 20 mg IVP ONCE [facility] Last Admin: 12/03/16 18:45 Dose: 20 mg Heparin Sodium (Porcine) (Heparin) 5,000 units SC Q12 [facility] Last Admin: 12/04/16 10:01 Dose: 5,000 units Ciprofloxacin (Cipro 200mg/100ml D5w) 100 mls @ 67 mls/hr IVPB Q12H [facility] Last Admin: 12/04/16 05:52 Dose: 67 mls/hr Metoprolol Tartrate (Lopressor) 50 mg PO BID [facility] Morphine Sulfate (Morphine) 2 mg IVP Q4 PRN PRN Reason: Pain, moderate (4-7) Last Admin: 12/03/16 19:27 Dose: 2 mg Ondansetron HCl (Zofran Inj) 4 mg IVP Q4 PRN PRN Reason: Nausea/Vomiting Last Admin: 12/04/16 03:44 Dose: 4 mg Pantoprazole Sodium (Protonix Inj) 40 mg IVP DAILY [facility] Last Admin: 12/04/16 10:02 Dose: 40 mg Physical Exam - Constitutional Appears: Non-toxic - Head Exam Head Exam: NORMAL INSPECTION - Eye Exam Eye Exam: Normal appearance - ENT Exam ENT Exam: Mucous Membranes Moist - Neck Exam Neck exam: Positive for: Full Rom - Respiratory Exam Respiratory Exam: NORMAL BREATHING PATTERN - Cardiovascular Exam Cardiovascular Exam: REGULAR RHYTHM, Systolic Murmur - GI/Abdominal Exam GI & Abdominal Exam: Normal Bowel Sounds - Rectal Exam Rectal Exam: Deferred - Extremities Exam Extremities exam: Negative for: pedal edema - Back Exam Back exam: NORMAL INSPECTION - Neurological Exam Neurological exam: Alert, Oriented x3 - Psychiatric Exam Psychiatric exam: Normal Affect - Skin Skin Exam: Normal Color Results - Vital Signs Recent Vital Signs: Last Vital Signs Temp 98.2 F 12/04/16 07:20 Pulse 90 12/04/16 07:30 Resp 20 12/04/16 07:20 BP 145/84 12/04/16 07:20 Pulse Ox 96 12/04/16 07:20 - Labs Result Diagrams: 12/04/16 09:02 12/04/16 09:02 Labs: Laboratory Results - last 24 hr 12/04/16 12/04/16 09:02 09:02 WBC 14.6 H RBC 3.59 L Hgb 9.0 L Hct 27.8 L MCV 77.4 L MCH 25.1 L MCHC 32.5 L RDW 17.6 H Plt Count 564 H MPV 7.3 Sodium 143 Potassium 4.0 Chloride 104 Carbon Dioxide 26 Anion Gap 17 BUN 27 H Creatinine 1.3 H Est GFR ( Amer) 49 Est GFR (Non-Af Amer) 41 Random Glucose 100 Calcium 8.6 Total Bilirubin 0.6 AST 29 ALT 23 Alkaline Phosphatase 74 Total Protein 8.1 Albumin 3.9 Globulin 4.2 H Albumin/Globulin Ratio 0.9 L - EKG Data EKG Interpreted by: Myself EKG shows normal: Sinus rhythm Assessment & Plan (1) HTN (hypertension) Assessment and Plan: patient needs improved blood pressure control. will add ARB for improved blood pressure control. Status: Acute (2) Diastolic dysfunction Assessment and Plan: as above Status: Acute (3) Dyspnea Assessment and Plan: patient has symptoms on exertion. Recommend outpatient stress test. Status: Acute
--- NOTE | 2016-12-04 16:04 | CP.PCM.PN ---
Subjective - Date & Time of Evaluation Date of Evaluation: 12/04/16 Time of Evaluation: 16:01 - Subjective Subjective: General Surgery - Dr. Winter Pt S&E. RUPALI. Pt has mild abdominal pain from surgical site, appropriate and well controlled with meds and abdominal binder. She has been OOB to the chair nd ambulated with physical therapy. She is working with incentive spirometer. No N/V,F/C, SOb/Cp. No flatus or BM yet. Objective - Vital Signs/Intake and Output Vital Signs (last 24 hours): Temp Pulse Resp BP Pulse Ox 98.2 F 90 20 140/81 96 12/04/16 07:20 12/04/16 07:30 12/04/16 07:20 12/04/16 10:00 12/04/16 07:20 - Medications Medications: Current Medications Amlodipine Besylate (Norvasc) 10 mg PO DAILY [facility] Last Admin: 12/04/16 10:43 Dose: 10 mg Benzocaine/Menthol (Cepacol Sore Throat) 1 brandie MT Q1 PRN PRN Reason: Sore Throat Last Admin: 12/03/16 02:48 Dose: 1 brandie Furosemide (Lasix) 20 mg IVP ONCE [facility] Last Admin: 12/03/16 18:45 Dose: 20 mg Heparin Sodium (Porcine) (Heparin) 5,000 units SC Q12 [facility] Last Admin: 12/04/16 10:01 Dose: 5,000 units Ciprofloxacin (Cipro 200mg/100ml D5w) 100 mls @ 67 mls/hr IVPB Q12H [facility] Last Admin: 12/04/16 05:52 Dose: 67 mls/hr Losartan Potassium (Cozaar) 25 mg PO DAILY [facility] Last Admin: 12/04/16 14:38 Dose: 25 mg Metoprolol Tartrate (Lopressor) 50 mg PO BID [facility] Last Admin: 12/04/16 10:00 Dose: 50 mg Morphine Sulfate (Morphine) 2 mg IVP Q4 PRN PRN Reason: Pain, moderate (4-7) Last Admin: 12/04/16 14:38 Dose: 2 mg Ondansetron HCl (Zofran Inj) 4 mg IVP Q4 PRN PRN Reason: Nausea/Vomiting Last Admin: 12/04/16 03:44 Dose: 4 mg Pantoprazole Sodium (Protonix Inj) 40 mg IVP DAILY [facility] Last Admin: 12/04/16 10:02 Dose: 40 mg - Labs Labs: 12/04/16 09:02 12/04/16 09:02 PT 12.4 SECONDS (9.7-12.2) H 12/02/16 01:58 INR 1.1 12/02/16 01:58 APTT 25 SECONDS (21-34) 12/02/16 01:58 - Constitutional Appears: No Acute Distress - Head Exam Head Exam: ATRAUMATIC, NORMAL INSPECTION, NORMOCEPHALIC - Respiratory Exam Respiratory Exam: NORMAL BREATHING PATTERN. absent: Respiratory Distress - Cardiovascular Exam Cardiovascular Exam: absent: REGULAR RHYTHM - GI/Abdominal Exam GI & Abdominal Exam: Soft, Tenderness (appropriately). absent: Distended, Guarding, Rebound Additional comments: dressing C/d/i, abdominal binder in place - Neurological Exam Neurological Exam: Alert, Oriented x3 - Psychiatric Exam Psychiatric exam: Normal Affect, Normal Mood - Skin Skin Exam: Dry, Intact Assessment and Plan - Assessment and Plan (Free Text) Assessment: 66yo F s/p repair of incarcerated umbilical hernia, POD #2 -Clear liquid diet -Continue colace -Monitor for bowel function -Pain control prn -OOB, Physical therapy DW Dr. Moy Mabry PGY3
[2016-12-05] MEDS: Ciprofloxacin 200mg/100ml D5W 100 ML IVPB SCH ×2 (06:00→18:28)
[2016-12-05 06:45] LABS: BASO % 0.2 % (0.0-2.0); EOS # 0.1 K/uL (0.0-0.7); EOS % 0.9 % (0.0-4.0); HEMATOCRIT 27.9 % (34.0-47.0); LYMPH # 2.1 K/uL (1.0-4.3); LYMPH % 13.2 % (20.0-40.0); MEAN CELL VOLUME 78.1 fL (81.0-99.0); MEAN CORPUSCULAR HEMOGLOBIN 24.7 pg (27.0-31.0); MEAN CORPUSCULAR HGB CONC 31.6 g/dL (33.0-37.0); MEAN PLATELET VOLUME 7.3 fL (7.2-11.7); MONO % 6.7 % (0.0-10.0); NRBC % 0.1 % (0.0-2.0); RED CELL DISTRIBUTION WIDTH 17.6 % (11.5-14.5); WHITE BLOOD COUNT 15.6 K/uL (4.8-10.8)
--- NOTE | 2016-12-05 07:39 | CP.PCM.PN ---
Subjective - Date & Time of Evaluation Date of Evaluation: 12/05/16 Time of Evaluation: 06:45 - Subjective Subjective: General Surgery Dr. Winter Pt S&E @bedside. NAEO. no complaints. pain controlled - requesting PO pain meds. (+)BM, flatus. denies N/V, F/C. tolerating CLD. Objective - Vital Signs/Intake and Output Vital Signs (last 24 hours): Temp Pulse Resp BP Pulse Ox 98 F 92 H 20 175/78 H 100 12/05/16 04:07 12/05/16 04:07 12/05/16 04:07 12/05/16 04:07 12/05/16 04:07 - Medications Medications: Current Medications Amlodipine Besylate (Norvasc) 10 mg PO DAILY [facility] Last Admin: 12/04/16 10:43 Dose: 10 mg Benzocaine/Menthol (Cepacol Sore Throat) 1 brandie MT Q1 PRN PRN Reason: Sore Throat Last Admin: 12/03/16 02:48 Dose: 1 brandie Docusate Sodium (Colace) 100 mg PO BID PRN PRN Reason: Constipation Furosemide (Lasix) 20 mg IVP ONCE [facility] Last Admin: 12/03/16 18:45 Dose: 20 mg Heparin Sodium (Porcine) (Heparin) 5,000 units SC Q12 [facility] Last Admin: 12/04/16 21:15 Dose: 5,000 units Ciprofloxacin (Cipro 200mg/100ml D5w) 100 mls @ 67 mls/hr IVPB Q12H [facility] Last Admin: 12/05/16 06:00 Dose: 67 mls/hr Losartan Potassium (Cozaar) 25 mg PO DAILY [facility] Last Admin: 12/04/16 14:38 Dose: 25 mg Metoprolol Tartrate (Lopressor) 50 mg PO BID [facility] Last Admin: 12/04/16 18:35 Dose: 50 mg Ondansetron HCl (Zofran Inj) 4 mg IVP Q4 PRN PRN Reason: Nausea/Vomiting Last Admin: 12/04/16 03:44 Dose: 4 mg Oxycodone/Acetaminophen (Percocet 5/325 Mg Tab) 2 tab PO Q4H PRN PRN Reason: Pain, moderate (4-7) Stop: 12/08/16 07:07 Pantoprazole Sodium (Protonix Inj) 40 mg IVP DAILY [facility] Last Admin: 12/04/16 10:02 Dose: 40 mg - Labs Labs: 12/05/16 06:39 12/04/16 09:02 PT 12.4 SECONDS (9.7-12.2) H 12/02/16 01:58 INR 1.1 12/02/16 01:58 APTT 25 SECONDS (21-34) 12/02/16 01:58 - Constitutional Appears: Non-toxic, No Acute Distress - Head Exam Head Exam: NORMAL INSPECTION - Eye Exam Eye Exam: Normal appearance - ENT Exam ENT Exam: Mucous Membranes Moist - Respiratory Exam Respiratory Exam: NORMAL BREATHING PATTERN. absent: Accessory Muscle Use, Respiratory Distress - Cardiovascular Exam Cardiovascular Exam: absent: Bradycardia, Tachycardia - GI/Abdominal Exam GI & Abdominal Exam: Soft. absent: Distended, Guarding, Tenderness, Rebound Additional comments: binder in place. incision c/d/i. - Extremities Exam Extremities Exam: Normal Inspection - Neurological Exam Neurological Exam: Alert, Awake, Oriented x3 - Psychiatric Exam Psychiatric exam: Normal Affect, Normal Mood - Skin Skin Exam: Dry, Intact, Normal Color, Warm Assessment and Plan - Assessment and Plan (Free Text) Assessment: 66 y/o F s/p POD#3 repair of incarcerated umbilical hernia - advance diet as tolerated - colace PRN - continue pain management - OOB to chair/Amb/IS use Pt discussed w/ Dr. Moy Arroyo DO PGY2
[2016-12-05 07:44] LABS: BILIRUBIN,TOTAL 0.5 mg/dL (0.2-1.3)
[2016-12-05 07:45] LABS: ALB/GLOB RATIO 0.9 (1.0-2.1); CALCIUM 8.8 mg/dl (8.6-10.4)
--- NOTE | 2016-12-05 08:19 | CP.PCM.PN ---
Subjective - Date & Time of Evaluation Date of Evaluation: 12/05/16 Time of Evaluation: 07:30 - Subjective Subjective: patient has less dyspnea Objective - Vital Signs/Intake and Output Vital Signs (last 24 hours): Temp Pulse Resp BP Pulse Ox 98.4 F 82 20 168/100 H 98 12/05/16 07:00 12/05/16 07:30 12/05/16 07:00 12/05/16 07:00 12/05/16 07:00 - Medications Medications: Current Medications Amlodipine Besylate (Norvasc) 10 mg PO DAILY [facility] Last Admin: 12/04/16 10:43 Dose: 10 mg Benzocaine/Menthol (Cepacol Sore Throat) 1 brandie MT Q1 PRN PRN Reason: Sore Throat Last Admin: 12/03/16 02:48 Dose: 1 brandie Docusate Sodium (Colace) 100 mg PO BID PRN PRN Reason: Constipation Furosemide (Lasix) 20 mg IVP ONCE [facility] Last Admin: 12/03/16 18:45 Dose: 20 mg Heparin Sodium (Porcine) (Heparin) 5,000 units SC Q12 [facility] Last Admin: 12/04/16 21:15 Dose: 5,000 units Ciprofloxacin (Cipro 200mg/100ml D5w) 100 mls @ 67 mls/hr IVPB Q12H [facility] Last Admin: 12/05/16 06:00 Dose: 67 mls/hr Losartan Potassium (Cozaar) 25 mg PO DAILY [facility] Last Admin: 12/04/16 14:38 Dose: 25 mg Metoprolol Tartrate (Lopressor) 50 mg PO BID [facility] Last Admin: 12/04/16 18:35 Dose: 50 mg Ondansetron HCl (Zofran Inj) 4 mg IVP Q4 PRN PRN Reason: Nausea/Vomiting Last Admin: 12/04/16 03:44 Dose: 4 mg Oxycodone/Acetaminophen (Percocet 5/325 Mg Tab) 2 tab PO Q4H PRN PRN Reason: Pain, moderate (4-7) Stop: 12/08/16 07:07 Pantoprazole Sodium (Protonix Inj) 40 mg IVP DAILY [facility] Last Admin: 12/04/16 10:02 Dose: 40 mg - Labs Labs: 12/05/16 06:39 12/05/16 06:39 PT 12.4 SECONDS (9.7-12.2) H 12/02/16 01:58 INR 1.1 12/02/16 01:58 APTT 25 SECONDS (21-34) 12/02/16 01:58 - Constitutional Appears: Non-toxic - Head Exam Head Exam: NORMAL INSPECTION - Eye Exam Eye Exam: Normal appearance - ENT Exam ENT Exam: Mucous Membranes Moist - Neck Exam Neck Exam: Full ROM - Respiratory Exam Respiratory Exam: NORMAL BREATHING PATTERN - Cardiovascular Exam Cardiovascular Exam: REGULAR RHYTHM - GI/Abdominal Exam GI & Abdominal Exam: Normal Bowel Sounds - Rectal Exam Rectal Exam: Deferred - Extremities Exam Extremities Exam: Pedal Edema - Back Exam Back Exam: NORMAL INSPECTION - Neurological Exam Neurological Exam: Alert - Psychiatric Exam Psychiatric exam: Normal Affect - Skin Skin Exam: Normal Color Assessment and Plan (1) HTN (hypertension) Assessment & Plan: kole need improved blood pressure control. recommend increase Losartan Status: Acute (2) Diastolic dysfunction Assessment & Plan: due to hypertension Status: Acute (3) Dyspnea Status: Acute
[2016-12-05] MEDS: Oxycodone/Acetaminophen 5/325 mg Tab PO PRN ×2 (10:28→22:43)
--- NOTE | 2016-12-05 14:36 | CP.PCM.PN ---
Subjective - Date & Time of Evaluation Date of Evaluation: 12/05/16 Time of Evaluation: 14:36 - Subjective Subjective: Patient is feeling much better. Him letting well. Tolerating the oral feeding. Elevated WBC noted. Complaining of left leg itching and the rash On examination: HEENT PERRLA, neck supple No thyromegaly was noted and no cervical adenopathy noted Chest bilateral good air entry, no wheezing or rales noted CVS regular heart sound, no murmur Postoperative abdomen Extremities no pedal edema, no leg swelling, pedal pulses are good. [employer]END[employer] alert awake oriented x3 no functional neurological deficit. Patient had a bowel movements. Assessment and recommendation: 66-year-old female with history of hypertension admitted with a small bowel obstruction. Status post ventral hernia repair. Improving. Mild elevation of the WBC noted, will monitor. Left leg excoriation noted, and the skin rash noted, also minimal will noted. Surgical wound management. Continue the current treatment. Will follow the patient Objective - Vital Signs/Intake and Output Vital Signs (last 24 hours): Temp Pulse Resp BP Pulse Ox 98.4 F 82 20 165/80 H 98 12/05/16 07:00 12/05/16 07:30 12/05/16 07:00 12/05/16 10:27 12/05/16 07:00 - Medications Medications: Current Medications Amlodipine Besylate (Norvasc) 10 mg PO DAILY [facility] Last Admin: 12/05/16 10:27 Dose: 10 mg Benzocaine/Menthol (Cepacol Sore Throat) 1 brandie MT Q1 PRN PRN Reason: Sore Throat Last Admin: 12/03/16 02:48 Dose: 1 brandie Docusate Sodium (Colace) 100 mg PO BID PRN PRN Reason: Constipation Last Admin: 12/05/16 10:27 Dose: 100 mg Furosemide (Lasix) 20 mg IVP ONCE [facility] Last Admin: 12/03/16 18:45 Dose: 20 mg Heparin Sodium (Porcine) (Heparin) 5,000 units SC Q12 [facility] Last Admin: 12/05/16 10:47 Dose: 5,000 units Ciprofloxacin (Cipro 200mg/100ml D5w) 100 mls @ 67 mls/hr IVPB Q12H [facility] Last Admin: 12/05/16 06:00 Dose: 67 mls/hr Losartan Potassium (Cozaar) 25 mg PO DAILY [facility] Last Admin: 12/05/16 10:27 Dose: 25 mg Metoprolol Tartrate (Lopressor) 50 mg PO BID [facility] Last Admin: 12/05/16 10:27 Dose: 50 mg Ondansetron HCl (Zofran Inj) 4 mg IVP Q4 PRN PRN Reason: Nausea/Vomiting Last Admin: 12/04/16 03:44 Dose: 4 mg Oxycodone/Acetaminophen (Percocet 5/325 Mg Tab) 2 tab PO Q4H PRN PRN Reason: Pain, moderate (4-7) Stop: 12/08/16 07:07 Last Admin: 12/05/16 10:28 Dose: 2 tab Pantoprazole Sodium (Protonix Inj) 40 mg IVP DAILY [facility] Last Admin: 12/05/16 10:28 Dose: 40 mg - Labs Labs: 12/05/16 06:39 12/05/16 06:39 PT 12.4 SECONDS (9.7-12.2) H 12/02/16 01:58 INR 1.1 12/02/16 01:58 APTT 25 SECONDS (21-34) 12/02/16 01:58
[2016-12-05] MEDS ORDERED: Bacitracin Ointment 30 GM TUBE TOP SCH (14:45)
[2016-12-05] MEDS: Ammonium Lactate 12% Lotion (225 g) EXT SCH (15:45)
[2016-12-06 06:16] LABS: HEMATOCRIT 28.3 % (34.0-47.0); MEAN CELL VOLUME 77.6 fL (81.0-99.0); MEAN CORPUSCULAR HEMOGLOBIN 24.5 pg (27.0-31.0); MEAN CORPUSCULAR HGB CONC 31.6 g/dL (33.0-37.0); MEAN PLATELET VOLUME 7.5 fL (7.2-11.7); RED CELL DISTRIBUTION WIDTH 17.3 % (11.5-14.5)
--- NOTE | 2016-12-06 06:27 | CP.PCM.PN ---
Subjective - Date & Time of Evaluation Date of Evaluation: 12/06/16 Time of Evaluation: 06:25 - Subjective Subjective: Surgery: Dr. Winter Patient complains of nausea throughout the night with 1 episode of emesis early in the evening. Patient requested reglan, which she received with some improvement of symptoms. She states shes had much burping but denies flatus that she can remember. Last bowel movement was 2 days ago. She reports ambulating yesterday some in the halls. She denies f/c. Pain controlled on medication. Objective - Vital Signs/Intake and Output Vital Signs (last 24 hours): Temp Pulse Resp BP Pulse Ox 98.3 F 90 20 148/95 H 96 12/05/16 23:10 12/06/16 03:58 12/05/16 23:10 12/05/16 23:10 12/05/16 23:10 Intake and Output: 12/05/16 12/06/16 18:59 06:59 Intake Total 220 Balance 220 - Medications Medications: Current Medications Amlodipine Besylate (Norvasc) 10 mg PO DAILY [facility] Last Admin: 12/05/16 10:27 Dose: 10 mg Bacitracin (Bacitracin) 1 gm TOP DAILY [facility] Last Admin: 12/05/16 15:45 Dose: Not Given Benzocaine/Menthol (Cepacol Sore Throat) 1 brandie MT Q1 PRN PRN Reason: Sore Throat Last Admin: 12/03/16 02:48 Dose: 1 brandie Ciprofloxacin (Cipro) 250 mg PO Q12H [facility] Docusate Sodium (Colace) 100 mg PO BID PRN PRN Reason: Constipation Last Admin: 12/05/16 10:27 Dose: 100 mg Furosemide (Lasix) 20 mg IVP ONCE [facility] Last Admin: 12/03/16 18:45 Dose: 20 mg Heparin Sodium (Porcine) (Heparin) 5,000 units SC Q12 [facility] Last Admin: 12/05/16 22:44 Dose: 5,000 units Lactic Acid (Lac-Hydrin 12% Lotion (225 G)) 1 gm EXT DAILY [facility] Last Admin: 12/05/16 15:45 Dose: Not Given Losartan Potassium (Cozaar) 25 mg PO DAILY [facility] Last Admin: 12/05/16 10:27 Dose: 25 mg Metoclopramide HCl (Reglan) 10 mg IVP Q6H PRN PRN Reason: Nausea/Vomiting Last Admin: 12/05/16 23:55 Dose: 10 mg Metoprolol Tartrate (Lopressor) 50 mg PO BID [facility] Last Admin: 12/05/16 18:27 Dose: 50 mg Oxycodone/Acetaminophen (Percocet 5/325 Mg Tab) 2 tab PO Q4H PRN PRN Reason: Pain, moderate (4-7) Stop: 12/08/16 07:07 Last Admin: 12/05/16 22:43 Dose: 2 tab Pantoprazole Sodium (Protonix Ec Tab) 40 mg PO DAILY [facility] - Labs Labs: 12/06/16 06:10 12/05/16 06:39 PT 12.4 SECONDS (9.7-12.2) H 12/02/16 01:58 INR 1.1 12/02/16 01:58 APTT 25 SECONDS (21-34) 12/02/16 01:58 - Constitutional Appears: Non-toxic, No Acute Distress - Head Exam Head Exam: ATRAUMATIC, NORMOCEPHALIC - Eye Exam Eye Exam: EOMI, Normal appearance - ENT Exam ENT Exam: Mucous Membranes Moist - Respiratory Exam Respiratory Exam: NORMAL BREATHING PATTERN. absent: Respiratory Distress - Cardiovascular Exam Cardiovascular Exam: REGULAR RHYTHM. absent: Tachycardia - GI/Abdominal Exam GI & Abdominal Exam: Soft, Tenderness (cecily-incisional, midline dressing CDI). absent: Guarding, Rigid, Rebound Additional comments: abdominal binder in place - Extremities Exam Extremities Exam: Normal Inspection. absent: Calf Tenderness - Neurological Exam Neurological Exam: Alert, Awake - Psychiatric Exam Psychiatric exam: Normal Affect, Normal Mood - Skin Skin Exam: Dry, Normal Color, Warm Assessment and Plan - Assessment and Plan (Free Text) Assessment: 66 y/o F s/p incarcerated umbilical hernia POD4, with presumed ileus Plan: -cont CLD -f/u electrolytes and replete as needed -chewing gum may relieve some symptoms -encourage frequent ambulation, d/w patient importance of being OOB -if +flatus and nausea resolves, ADAT -further recs per Dr. Moy Hoffmann PGY3
[2016-12-06 06:40] LABS: CALCIUM 8.6 mg/dl (8.6-10.4)
[2016-12-06] MEDS: Pantoprazole 40 mg EC Tab PO SCH (09:10)
--- NOTE | 2016-12-06 09:34 | CARD ---
APPROVED REPORT EKG Measurement Heart [id number] <Conclusion> Sinus tachycardia with occasional premature ventricular complexes Left axis deviation Left ventricular hypertrophy with QRS widening and repolarization abnormality Abnormal ECG
--- NOTE | 2016-12-06 09:35 | CARD ---
APPROVED REPORT EKG Measurement Heart [id number] <Conclusion> Sinus tachycardia with occasional premature ventricular complexes Possible Left atrial enlargement Left axis deviation Left ventricular hypertrophy with QRS widening and repolarization abnormality Cannot rule out Septal infarct, age undetermined Abnormal ECG
[2016-12-06] MEDS: Oxycodone/Acetaminophen 5/325 mg Tab PO PRN (13:59)
[2016-12-06] MEDS: Bacitracin 500 Units/gm Oint Foilpak UD TOP SCH (14:10)
[2016-12-06] MEDS: Ammonium Lactate 12% Lotion (225 g) EXT SCH (14:15)
[2016-12-07] MEDS: Oxycodone/Acetaminophen 5/325 mg Tab PO PRN ×2 (00:28→13:23)
[2016-12-07 07:20] LABS: HEMATOCRIT 29.3 % (34.0-47.0); MEAN CELL VOLUME 77.4 fL (81.0-99.0); MEAN CORPUSCULAR HEMOGLOBIN 25.2 pg (27.0-31.0); MEAN CORPUSCULAR HGB CONC 32.5 g/dL (33.0-37.0); MEAN PLATELET VOLUME 7.3 fL (7.2-11.7); RED CELL DISTRIBUTION WIDTH 17.5 % (11.5-14.5); WHITE BLOOD COUNT 13.2 K/uL (4.8-10.8)
[2016-12-07 07:21] LABS: CALCIUM 9.3 mg/dl (8.6-10.4); POTASSIUM 4.2 mmol/L (3.6-5.2)
[2016-12-07] MEDS ORDERED: Sodium Chloride 0.9% 1,000 ML IV SCH (10:30)
--- NOTE | 2016-12-07 11:19 | CP.PCM.PN ---
Subjective - Date & Time of Evaluation Date of Evaluation: 12/07/16 Time of Evaluation: 07:00 - Subjective Subjective: General Surgery Dr. Winter Pt S&E @bedside. Vomiting overnight. c/o distention, N/V. (-)Flatus/BM. denies abd pain. Objective - Vital Signs/Intake and Output Vital Signs (last 24 hours): Temp Pulse Resp BP Pulse Ox 98.0 F 81 20 140/83 98 12/07/16 07:15 12/07/16 07:40 12/07/16 07:15 12/07/16 07:15 12/07/16 07:15 - Medications Medications: Current Medications Amlodipine Besylate (Norvasc) 10 mg PO DAILY [facility] Last Admin: 12/06/16 09:11 Dose: 10 mg Bacitracin (Bacitracin) 1 ea TOP DAILY [facility] Last Admin: 12/06/16 14:10 Dose: 1 ea Benzocaine/Menthol (Cepacol Sore Throat) 1 brandie MT Q1 PRN PRN Reason: Sore Throat Last Admin: 12/03/16 02:48 Dose: 1 brandie Ciprofloxacin (Cipro) 250 mg PO Q12H [facility] Last Admin: 12/06/16 18:48 Dose: 250 mg Docusate Sodium (Colace) 100 mg PO BID PRN PRN Reason: Constipation Last Admin: 12/06/16 09:11 Dose: 100 mg Furosemide (Lasix) 20 mg IVP ONCE [facility] Last Admin: 12/03/16 18:45 Dose: 20 mg Heparin Sodium (Porcine) (Heparin) 5,000 units SC Q12 [facility] Last Admin: 12/06/16 21:49 Dose: 5,000 units Sodium Chloride (Sodium Chloride 0.9%) 1,000 mls @ 100 mls/hr IV .Q10H [facility] Lactic Acid (Lac-Hydrin 12% Lotion (225 G)) 1 gm EXT DAILY [facility] Last Admin: 12/06/16 14:15 Dose: 12 % Losartan Potassium (Cozaar) 25 mg PO DAILY [facility] Last Admin: 12/06/16 09:11 Dose: 25 mg Metoclopramide HCl (Reglan) 10 mg IVP Q6 PRN PRN Reason: Nausea/Vomiting Metoprolol Tartrate (Lopressor) 50 mg PO BID [facility] Last Admin: 12/06/16 18:50 Dose: 50 mg Ondansetron HCl (Zofran Inj) 4 mg IVP Q4 PRN PRN Reason: Nausea/Vomiting Last Admin: 12/07/16 05:07 Dose: 4 mg Oxycodone/Acetaminophen (Percocet 5/325 Mg Tab) 2 tab PO Q4H PRN PRN Reason: Pain, moderate (4-7) Stop: 12/08/16 07:07 Last Admin: 12/07/16 00:28 Dose: 2 tab Pantoprazole Sodium (Protonix Ec Tab) 40 mg PO DAILY [facility] Last Admin: 12/06/16 09:10 Dose: 40 mg - Labs Labs: 12/07/16 07:04 12/07/16 07:04 PT 12.4 SECONDS (9.7-12.2) H 12/02/16 01:58 INR 1.1 12/02/16 01:58 APTT 25 SECONDS (21-34) 12/02/16 01:58 - Constitutional Appears: Non-toxic, No Acute Distress - Head Exam Head Exam: NORMAL INSPECTION - Eye Exam Eye Exam: Normal appearance - ENT Exam ENT Exam: Mucous Membranes Moist - Respiratory Exam Respiratory Exam: NORMAL BREATHING PATTERN. absent: Accessory Muscle Use, Respiratory Distress - Cardiovascular Exam Cardiovascular Exam: REGULAR RHYTHM. absent: Bradycardia, Tachycardia - GI/Abdominal Exam GI & Abdominal Exam: Distended, Soft, Tenderness (minimal cecily-incisional TTP). absent: Guarding, Rebound Additional comments: abd binder in place dressing c/d/i - Extremities Exam Extremities Exam: Normal Inspection - Neurological Exam Neurological Exam: Alert, Awake, Oriented x3 - Psychiatric Exam Psychiatric exam: Normal Affect, Normal Mood - Skin Skin Exam: Dry, Intact, Normal Color, Warm Assessment and Plan - Assessment and Plan (Free Text) Assessment: 66 y/o F POD#5 s/p ex-lap, hernia reduction and repair w/ mesh now w/ N/V - NPO, IVF - NGT if vomiting continues - Reglan Q6 [facility] - f/u AXR - encourage OOB to chair/Amb/IS use Pt discussed w/ Dr. Moy Arroyo DO PGY2
--- NOTE | 2016-12-07 11:42 | RAD ---
Abdomen single frontal view History: Abdominal distention. Comparison: CT scan dated 12/02/2016 Findings: Persistent prominent dilated loops of small bowel in the upper and mid abdomen with differential fluid levels concerning for an ileus and/or small bowel obstruction. Partial aeration of the left hemicolon. Surgical clips over the lower pelvis. Mild venous congestion. Battery device projects over the right lower abdomen. Degenerative changes in the spine. Impression: Persistent prominent dilated loops of small bowel in the upper and mid abdomen with differential fluid levels concerning for an ileus and/or small bowel obstruction. Partial aeration of the left hemicolon. Surgical clips over the lower pelvis. Mild venous congestion. Battery device projects over the right lower abdomen. Degenerative changes in the spine.
[2016-12-07] MEDS: Pantoprazole 40 mg EC Tab PO SCH (13:17)
--- NOTE | 2016-12-07 13:18 | CP.PCM.PN ---
Subjective - Date & Time of Evaluation Date of Evaluation: 12/07/16 Time of Evaluation: 13:18 - Subjective Subjective: vomited dm none axr SBO keep npo ivf d/c lasix ambulation Objective - Vital Signs/Intake and Output Vital Signs (last 24 hours): Temp Pulse Resp BP Pulse Ox 98.0 F 81 20 140/83 98 12/07/16 07:15 12/07/16 07:40 12/07/16 07:15 12/07/16 07:15 12/07/16 07:15 - Medications Medications: Current Medications Amlodipine Besylate (Norvasc) 10 mg PO DAILY [facility] Last Admin: 12/06/16 09:11 Dose: 10 mg Bacitracin (Bacitracin) 1 ea TOP DAILY [facility] Last Admin: 12/06/16 14:10 Dose: 1 ea Benzocaine/Menthol (Cepacol Sore Throat) 1 brandie MT Q1 PRN PRN Reason: Sore Throat Last Admin: 12/03/16 02:48 Dose: 1 brandie Ciprofloxacin (Cipro) 250 mg PO Q12H [facility] Last Admin: 12/06/16 18:48 Dose: 250 mg Docusate Sodium (Colace) 100 mg PO BID PRN PRN Reason: Constipation Last Admin: 12/06/16 09:11 Dose: 100 mg Furosemide (Lasix) 20 mg IVP ONCE [facility] Last Admin: 12/03/16 18:45 Dose: 20 mg Heparin Sodium (Porcine) (Heparin) 5,000 units SC Q12 [facility] Last Admin: 12/06/16 21:49 Dose: 5,000 units Sodium Chloride (Sodium Chloride 0.9%) 1,000 mls @ 100 mls/hr IV .Q10H [facility] Lactic Acid (Lac-Hydrin 12% Lotion (225 G)) 1 gm EXT DAILY [facility] Last Admin: 12/06/16 14:15 Dose: 12 % Losartan Potassium (Cozaar) 25 mg PO DAILY [facility] Last Admin: 12/06/16 09:11 Dose: 25 mg Metoclopramide HCl (Reglan) 10 mg IVP Q6 PRN PRN Reason: Nausea/Vomiting Metoprolol Tartrate (Lopressor) 50 mg PO BID [facility] Last Admin: 12/06/16 18:50 Dose: 50 mg Ondansetron HCl (Zofran Inj) 4 mg IVP Q4 PRN PRN Reason: Nausea/Vomiting Last Admin: 12/07/16 05:07 Dose: 4 mg Oxycodone/Acetaminophen (Percocet 5/325 Mg Tab) 2 tab PO Q4H PRN PRN Reason: Pain, moderate (4-7) Stop: 12/08/16 07:07 Last Admin: 12/07/16 00:28 Dose: 2 tab Pantoprazole Sodium (Protonix Ec Tab) 40 mg PO DAILY [facility] Last Admin: 12/06/16 09:10 Dose: 40 mg - Labs Labs: 12/07/16 07:04 12/07/16 07:04 PT 12.4 SECONDS (9.7-12.2) H 12/02/16 01:58 INR 1.1 12/02/16 01:58 APTT 25 SECONDS (21-34) 12/02/16 01:58
[2016-12-07] MEDS: Bacitracin 500 Units/gm Oint Foilpak UD TOP SCH (13:50)
[2016-12-07] MEDS: Lactated Ringer's 1,000 ML IV SCH (13:55)
[2016-12-07] MEDS: Ammonium Lactate 12% Lotion (225 g) EXT SCH (14:08)
--- NOTE | 2016-12-07 16:25 | CP.PCM.PN ---
Subjective - Date & Time of Evaluation Date of Evaluation: 12/07/16 Time of Evaluation: 16:24 - Subjective Subjective: distended and vomiting controlled with ngt ct ordered enema ordered Objective - Vital Signs/Intake and Output Vital Signs (last 24 hours): Temp Pulse Resp BP Pulse Ox 98.0 F 81 20 150/80 98 12/07/16 07:15 12/07/16 07:40 12/07/16 07:15 12/07/16 13:21 12/07/16 07:15 - Medications Medications: Current Medications Amlodipine Besylate (Norvasc) 5 mg PO DAILY [facility] Bacitracin (Bacitracin) 1 ea TOP DAILY [facility] Last Admin: 12/07/16 13:50 Dose: 1 ea Benzocaine/Menthol (Cepacol Sore Throat) 1 brandie MT Q1 PRN PRN Reason: Sore Throat Last Admin: 12/03/16 02:48 Dose: 1 brandie Docusate Sodium (Colace) 100 mg PO BID PRN PRN Reason: Constipation Last Admin: 12/07/16 13:17 Dose: 100 mg Heparin Sodium (Porcine) (Heparin) 5,000 units SC Q12 [facility] Last Admin: 12/07/16 13:17 Dose: 5,000 units Lactated Ringer's (Lactated Ringer's) 1,000 mls @ 70 mls/hr IV .[id number] [facility] Last Admin: 12/07/16 13:55 Dose: 70 mls/hr Lactic Acid (Lac-Hydrin 12% Lotion (225 G)) 1 gm EXT DAILY [facility] Last Admin: 12/07/16 14:08 Dose: 12 % Losartan Potassium (Cozaar) 25 mg PO DAILY [facility] Last Admin: 12/07/16 13:18 Dose: 25 mg Metoclopramide HCl (Reglan) 10 mg IVP Q6 PRN PRN Reason: Nausea/Vomiting Last Admin: 12/07/16 10:20 Dose: 10 mg Metoprolol Tartrate (Lopressor) 50 mg PO BID [facility] Last Admin: 12/07/16 13:21 Dose: 50 mg Morphine Sulfate (Morphine) 2 mg IVP Q6 PRN PRN Reason: Pain, severe (8-10) Stop: 12/09/16 13:29 Last Admin: 12/07/16 13:53 Dose: 2 mg Ondansetron HCl (Zofran Inj) 4 mg IVP Q4 PRN PRN Reason: Nausea/Vomiting Last Admin: 12/07/16 05:07 Dose: 4 mg Oxycodone/Acetaminophen (Percocet 5/325 Mg Tab) 2 tab PO Q4H PRN PRN Reason: Pain, moderate (4-7) Stop: 12/08/16 07:07 Last Admin: 12/07/16 13:23 Dose: 2 tab Pantoprazole Sodium (Protonix Inj) 40 mg IVP DAILY [facility] - Labs Labs: 12/07/16 07:04 12/07/16 07:04 PT 12.4 SECONDS (9.7-12.2) H 12/02/16 01:58 INR 1.1 12/02/16 01:58 APTT 25 SECONDS (21-34) 12/02/16 01:58
[2016-12-08] MEDS: Lactated Ringer's 1,000 ML IV SCH ×2 (06:22→18:00)
[2016-12-08 07:13] LABS: HEMATOCRIT 26.5 % (34.0-47.0); MEAN CORPUSCULAR HEMOGLOBIN 24.2 pg (27.0-31.0); MEAN CORPUSCULAR HGB CONC 31.4 g/dL (33.0-37.0); MEAN PLATELET VOLUME 7.4 fL (7.2-11.7); RED CELL DISTRIBUTION WIDTH 17.5 % (11.5-14.5); WHITE BLOOD COUNT 15.8 K/uL (4.8-10.8)
--- NOTE | 2016-12-08 07:49 | CP.PCM.PN ---
Subjective - Date & Time of Evaluation Date of Evaluation: 12/08/16 Time of Evaluation: 07:46 - Subjective Subjective: General Surgery - Dr. Winter Pt. S&E. RUPALI. Pt denies abdominal pain, mildly distended but states N/V have improved, no further episodes of vomiting overnight. Pt is passing flatus , had BM over weekend. CT yesterday shows persistent partial sbo v. ileus. No F/C, Sob/CP. Objective - Vital Signs/Intake and Output Vital Signs (last 24 hours): Temp Pulse Resp BP Pulse Ox 98.3 F 89 20 130/77 98 12/08/16 04:05 12/08/16 04:05 12/08/16 04:05 12/08/16 04:05 12/08/16 04:05 Intake and Output: 12/08/16 12/08/16 06:59 18:59 Intake Total 525 Output Total 900 Balance -375 - Medications Medications: Current Medications Amlodipine Besylate (Norvasc) 5 mg PO DAILY [facility] Bacitracin (Bacitracin) 1 ea TOP DAILY [facility] Last Admin: 12/07/16 13:50 Dose: 1 ea Benzocaine/Menthol (Cepacol Sore Throat) 1 brandie MT Q1 PRN PRN Reason: Sore Throat Last Admin: 12/03/16 02:48 Dose: 1 brandie Docusate Sodium (Colace) 100 mg PO BID [facility] Heparin Sodium (Porcine) (Heparin) 5,000 units SC Q12 [facility] Last Admin: 12/07/16 22:22 Dose: 5,000 units Lactated Ringer's (Lactated Ringer's) 1,000 mls @ 70 mls/hr IV .[id number] [facility] Last Admin: 12/07/16 13:55 Dose: 70 mls/hr Lactic Acid (Lac-Hydrin 12% Lotion (225 G)) 1 gm EXT DAILY [facility] Last Admin: 12/07/16 14:08 Dose: 12 % Losartan Potassium (Cozaar) 25 mg PO DAILY [facility] Last Admin: 12/07/16 13:18 Dose: 25 mg Metoclopramide HCl (Reglan) 10 mg IVP Q6 PRN PRN Reason: Nausea/Vomiting Last Admin: 12/07/16 10:20 Dose: 10 mg Metoprolol Tartrate (Lopressor) 50 mg PO BID [facility] Last Admin: 12/07/16 18:11 Dose: 50 mg Morphine Sulfate (Morphine) 2 mg IVP Q6 PRN PRN Reason: Pain, severe (8-10) Stop: 12/09/16 13:29 Last Admin: 12/07/16 18:11 Dose: 2 mg Ondansetron HCl (Zofran Inj) 4 mg IVP Q4 PRN PRN Reason: Nausea/Vomiting Last Admin: 12/07/16 05:07 Dose: 4 mg Pantoprazole Sodium (Protonix Inj) 40 mg IVP DAILY [facility] - Labs Labs: 12/08/16 06:55 12/07/16 07:04 PT 12.4 SECONDS (9.7-12.2) H 12/02/16 01:58 INR 1.1 12/02/16 01:58 APTT 25 SECONDS (21-34) 12/02/16 01:58 - Constitutional Appears: No Acute Distress - Head Exam Head Exam: ATRAUMATIC, NORMAL INSPECTION, NORMOCEPHALIC - Respiratory Exam Respiratory Exam: NORMAL BREATHING PATTERN. absent: Respiratory Distress - GI/Abdominal Exam GI & Abdominal Exam: Distended, Soft. absent: Firm, Guarding, Tenderness, Rebound Additional comments: incision C/D/I - Neurological Exam Neurological Exam: Alert, Oriented x3 - Psychiatric Exam Psychiatric exam: Normal Affect, Normal Mood - Skin Skin Exam: Dry, Intact Assessment and Plan - Assessment and Plan (Free Text) Assessment: 66 y/o F POD#6 s/p incarcerated umbilical hernia repair - NPO with sips of clear liquids - IVF - Colace BID and Reglan q6h - Encourage OOB/Ambulation - Monitor for bowel function - Consider nephro consul reg. hydronephrosis Dw Dr. Moy Mabry PGy3
[2016-12-08 08:23] LABS: CALCIUM 8.8 mg/dl (8.6-10.4)
--- NOTE | 2016-12-08 08:56 | CT ---
PROCEDURE: CT Abdomen and Pelvis without intravenous contrast HISTORY: post op bowel obstruction COMPARISON: 12/02/2016 TECHNIQUE: Without contrast.. Contrast Dose: 0 Radiation dose: Total exam DLP = 1157.79 mGy-cm. This CT exam was performed using one or more of the following dose reduction techniques: Automated exposure control, adjustment of the mA and/or kV according to patient size, and/or use of iterative reconstruction technique. FINDINGS: LOWER THORAX: Unremarkable. LIVER: Unremarkable. No gross lesion or ductal dilatation. GALLBLADDER AND BILE DUCTS: Unremarkable. PANCREAS: Unremarkable. No gross lesion or ductal dilatation. SPLEEN: Unremarkable. ADRENALS: Unremarkable. No mass. KIDNEYS AND URETERS: Right hydroureteronephrosis. No obstructing mass or calculus identified. Point of obstruction is at the level of the distal ureter/ ureterovesical junction. No significant change from prior CT. Unremarkable left kidney/ureter. No renal mass. No calculus. VASCULATURE: Unremarkable. No aortic aneurysm. BOWEL: Multiple dilated loops of small bowel containing fluid and/ gas, consistent with mechanical small bowel obstruction. Cannot rule out postoperative ileus. No clear point of obstruction identified. The colon is predominantly collapsed. There are collapsed loops of distal ileum. The findings are not more likely to represent mechanical bowel obstruction given the collapsed distal ileum. APPENDIX: Unremarkable. PERITONEUM: Mild ascites. No pneumoperitoneum. Status post umbilical hernia repair. There is collection of gas and fluid in the anterior abdominal wall at the surgical site. Abscess versus postoperative seroma. Cutaneous thickening over lower anterior abdominal wall may reflect cellulitis. Please correlate. There is streaky increased attenuation of subcutaneous fat though this may represent postoperative change. Again, please correlate. LYMPH NODES: Unremarkable. No enlarged lymph nodes. BLADDER: Unremarkable. REPRODUCTIVE: Unremarkable uterus. BONES: No acute fracture. OTHER FINDINGS: None. IMPRESSION: Findings most suggestive of mechanical bowel obstruction. Cannot rule out postoperative ileus, however. Postoperative fluid collection lower anterior abdominal wall with gas and fluid, cannot rule out abscess. Possible cellulitis lower anterior abdominal wall. Please correlate. Right hydroureteronephrosis without evidence of obstructing calculus. Etiology uncertain. Minimal ascites. Preliminary interpretation of this examination was reported by Bouju at 11:22 p.m. on 12/07/2016. There is concurrence of this report with the preliminary interpretation.
[2016-12-08] MEDS: Bacitracin 500 Units/gm Oint Foilpak UD TOP SCH (09:36)
--- NOTE | 2016-12-08 16:47 | CARD ---
APPROVED REPORT EKG Measurement Heart [id number] AL [id number] <Conclusion> Normal sinus rhythm Left axis deviation Left bundle branch block Abnormal ECG
[2016-12-08] MEDS: Oxycodone/Acetaminophen 5/325 mg Tab PO PRN (18:44)
--- NOTE | 2016-12-08 21:53 | CP.PCM.PN ---
Subjective - Date & Time of Evaluation Date of Evaluation: 12/08/16 Time of Evaluation: 21:51 - Subjective Subjective: Patient today feeling okay, still having some abdominal pain mildly. No bowel movements noted. Spoke to the surgeon. Patient had a CT of the abdomen yesterday, showing evidence of still obstruction. Unclear. Also showing evidence of right hydronephrosis. Mild. Meanwhile will continue the current supportive treatment. IV fluid nothing by mouth and will follow the patient. Blood pressure stable, kidney functions is improving Objective - Vital Signs/Intake and Output Vital Signs (last 24 hours): Temp Pulse Resp BP Pulse Ox 98.3 F 82 20 142/86 100 12/08/16 15:00 12/08/16 15:00 12/08/16 15:00 12/08/16 18:43 12/08/16 15:00 - Medications Medications: Current Medications Amlodipine Besylate (Norvasc) 5 mg PO DAILY [facility] Last Admin: 12/08/16 09:36 Dose: 5 mg Bacitracin (Bacitracin) 1 ea TOP DAILY [facility] Last Admin: 12/08/16 09:36 Dose: 1 ea Benzocaine/Menthol (Cepacol Sore Throat) 1 brandie MT Q1 PRN PRN Reason: Sore Throat Last Admin: 12/03/16 02:48 Dose: 1 brandie Docusate Sodium (Colace) 100 mg PO BID [facility] Last Admin: 12/08/16 18:44 Dose: 100 mg Heparin Sodium (Porcine) (Heparin) 5,000 units SC Q12 [facility] Last Admin: 12/08/16 09:37 Dose: 5,000 units Lactated Ringer's (Lactated Ringer's) 1,000 mls @ 70 mls/hr IV .[id number] [facility] Last Admin: 12/07/16 13:55 Dose: 70 mls/hr Lactic Acid (Lac-Hydrin 12% Lotion (225 G)) 1 gm EXT DAILY [facility] Last Admin: 12/07/16 14:08 Dose: 12 % Losartan Potassium (Cozaar) 25 mg PO DAILY [facility] Last Admin: 12/07/16 13:18 Dose: 25 mg Metoclopramide HCl (Reglan) 10 mg IVP Q6 [facility] Last Admin: 12/08/16 18:44 Dose: 10 mg Metoprolol Tartrate (Lopressor) 50 mg PO BID [facility] Last Admin: 12/08/16 18:43 Dose: 50 mg Morphine Sulfate (Morphine) 2 mg IVP Q6 PRN PRN Reason: Pain, severe (8-10) Stop: 12/09/16 13:29 Last Admin: 12/08/16 09:30 Dose: 2 mg Ondansetron HCl (Zofran Inj) 4 mg IVP Q4 PRN PRN Reason: Nausea/Vomiting Last Admin: 12/07/16 05:07 Dose: 4 mg Oxycodone/Acetaminophen (Percocet 5/325 Mg Tab) 2 tab PO Q4H PRN PRN Reason: Pain, moderate (4-7) Stop: 12/11/16 17:43 Last Admin: 12/08/16 18:44 Dose: 2 tab Pantoprazole Sodium (Protonix Inj) 40 mg IVP DAILY [facility] Last Admin: 12/08/16 09:36 Dose: 40 mg - Labs Labs: 12/08/16 06:55 12/08/16 06:55 PT 12.4 SECONDS (9.7-12.2) H 12/02/16 01:58 INR 1.1 12/02/16 01:58 APTT 25 SECONDS (21-34) 12/02/16 01:58
[2016-12-09] MEDS: Oxycodone/Acetaminophen 5/325 mg Tab PO PRN ×3 (05:31→23:34)
[2016-12-09 06:29] LABS: BASO # 0.1 K/uL (0.0-0.2); BASO % 0.4 % (0.0-2.0); EOS # 0.5 K/uL (0.0-0.7); EOS % 2.7 % (0.0-4.0); HEMATOCRIT 28.8 % (34.0-47.0); LYMPH % 17.3 % (20.0-40.0); MEAN CELL VOLUME 77.3 fL (81.0-99.0); MEAN CORPUSCULAR HEMOGLOBIN 25.1 pg (27.0-31.0); MEAN CORPUSCULAR HGB CONC 32.4 g/dL (33.0-37.0); MEAN PLATELET VOLUME 7.6 fL (7.2-11.7); MONO # 1.3 K/uL (0.0-0.8); MONO % 7.6 % (0.0-10.0); NRBC % 0.1 % (0.0-2.0); RED CELL DISTRIBUTION WIDTH 17.4 % (11.5-14.5); WHITE BLOOD COUNT 17.1 K/uL (4.8-10.8)
[2016-12-09 06:41] LABS: BILIRUBIN,TOTAL 0.5 mg/dL (0.2-1.3); CALCIUM 9.6 mg/dl (8.6-10.4); POTASSIUM 3.8 mmol/L (3.6-5.2); TOTAL PROTEIN 7.3 g/dL (6.3-8.3)
--- NOTE | 2016-12-09 08:53 | CP.PCM.PN ---
Subjective - Date & Time of Evaluation Date of Evaluation: 12/09/16 Time of Evaluation: 08:50 - Subjective Subjective: General Surgery - Dr. Winter pt S&E. RUPALI. Pt denies any complaints at this time. She remains NPO with sips of liquids. Pt had small 'pellet-like' BM after enema yesterday. She is ambulating and working with incentive spirometer. No N/V, F/C, SOb/Cp. Objective - Vital Signs/Intake and Output Vital Signs (last 24 hours): Temp Pulse Resp BP Pulse Ox 98.3 F 87 20 132/76 98 12/09/16 07:20 12/09/16 07:20 12/09/16 07:20 12/09/16 07:20 12/09/16 07:20 Intake and Output: 12/09/16 12/09/16 06:59 18:59 Intake Total 680 Balance 680 - Medications Medications: Current Medications Amlodipine Besylate (Norvasc) 5 mg PO DAILY [facility] Last Admin: 12/08/16 09:36 Dose: 5 mg Bacitracin (Bacitracin) 1 ea TOP DAILY [facility] Last Admin: 12/08/16 09:36 Dose: 1 ea Benzocaine/Menthol (Cepacol Sore Throat) 1 brandie MT Q1 PRN PRN Reason: Sore Throat Last Admin: 12/03/16 02:48 Dose: 1 brandie Docusate Sodium (Colace) 100 mg PO BID [facility] Last Admin: 12/08/16 18:44 Dose: 100 mg Heparin Sodium (Porcine) (Heparin) 5,000 units SC Q12 [facility] Last Admin: 12/08/16 22:29 Dose: Not Given Lactated Ringer's (Lactated Ringer's) 1,000 mls @ 70 mls/hr IV .[id number] [facility] Last Admin: 12/08/16 18:00 Dose: Not Given Lactic Acid (Lac-Hydrin 12% Lotion (225 G)) 1 gm EXT DAILY [facility] Last Admin: 12/07/16 14:08 Dose: 12 % Losartan Potassium (Cozaar) 25 mg PO DAILY [facility] Last Admin: 12/07/16 13:18 Dose: 25 mg Metoclopramide HCl (Reglan) 10 mg IVP Q6 [facility] Last Admin: 12/09/16 05:33 Dose: 10 mg Metoprolol Tartrate (Lopressor) 50 mg PO BID [facility] Last Admin: 12/08/16 18:43 Dose: 50 mg Morphine Sulfate (Morphine) 2 mg IVP Q6 PRN PRN Reason: Pain, severe (8-10) Stop: 12/09/16 13:29 Last Admin: 12/08/16 09:30 Dose: 2 mg Ondansetron HCl (Zofran Inj) 4 mg IVP Q4 PRN PRN Reason: Nausea/Vomiting Last Admin: 12/07/16 05:07 Dose: 4 mg Oxycodone/Acetaminophen (Percocet 5/325 Mg Tab) 2 tab PO Q4H PRN PRN Reason: Pain, moderate (4-7) Stop: 12/11/16 17:43 Last Admin: 12/09/16 05:31 Dose: 2 tab Pantoprazole Sodium (Protonix Inj) 40 mg IVP DAILY [facility] Last Admin: 12/08/16 09:36 Dose: 40 mg - Labs Labs: 12/09/16 06:01 12/09/16 06:01 PT 12.4 SECONDS (9.7-12.2) H 12/02/16 01:58 INR 1.1 12/02/16 01:58 APTT 25 SECONDS (21-34) 12/02/16 01:58 - Constitutional Appears: No Acute Distress - Head Exam Head Exam: ATRAUMATIC, NORMAL INSPECTION, NORMOCEPHALIC - Eye Exam Eye Exam: Normal appearance - Respiratory Exam Respiratory Exam: NORMAL BREATHING PATTERN - Cardiovascular Exam Cardiovascular Exam: REGULAR RHYTHM - GI/Abdominal Exam GI & Abdominal Exam: Distended, Soft. absent: Guarding, Rigid, Tenderness, Mass , Rebound - Neurological Exam Neurological Exam: Alert, Oriented x3 - Psychiatric Exam Psychiatric exam: Normal Affect, Normal Mood - Skin Skin Exam: Dry, Intact Assessment and Plan - Assessment and Plan (Free Text) Assessment: 66 yo F POD#7 s/p incarcerated umbilical hernia repair - Small bowel series w/ contrast - Liquid diet for lunch - Continue Colace and Reglan - Encourage OOB/Ambulation - Monitor for bowel function Dw Dr Moy Mabry PGy3
[2016-12-09] MEDS: Bacitracin 500 Units/gm Oint Foilpak UD TOP SCH (10:00)
[2016-12-09] MEDS: Ammonium Lactate 12% Lotion (225 g) EXT SCH (10:00)
[2016-12-09] MEDS ORDERED: Barium Sulfate for Susp 96% w/w 176g Bottle PR ONE ×2 (10:58→11:25)
[2016-12-09] MEDS ORDERED: Barium Sulfate for Susp 98% w/w 340g Bottle ONE (10:58)
[2016-12-09] MEDS: Simethicone 80 mg Chewtab PO PRN (17:28)
--- NOTE | 2016-12-09 19:09 | CP.PCM.PN ---
Subjective - Date & Time of Evaluation Date of Evaluation: 12/09/16 Time of Evaluation: 19:07 - Subjective Subjective: pt is doing ok had bm today no chest pain leg swelling less left leg wound noted but no abcess superficial infection added the cipro and flagyl and high wbc noted pt s/p surgery sbo HTN leg edema leg ulcer rt hydroureter and hydro nephrosis continue current treatment dvt and gi prophylaxis Objective - Vital Signs/Intake and Output Vital Signs (last 24 hours): Temp Pulse Resp BP Pulse Ox 97.7 F 92 H 20 146/76 96 12/09/16 15:00 12/09/16 16:00 12/09/16 15:00 12/09/16 15:00 12/09/16 15:00 - Medications Medications: Current Medications Amlodipine Besylate (Norvasc) 5 mg PO DAILY [facility] Last Admin: 12/09/16 14:34 Dose: 5 mg Bacitracin (Bacitracin) 1 ea TOP DAILY [facility] Last Admin: 12/09/16 10:00 Dose: Not Given Benzocaine/Menthol (Cepacol Sore Throat) 1 brandie MT Q1 PRN PRN Reason: Sore Throat Last Admin: 12/03/16 02:48 Dose: 1 brandie Docusate Sodium (Colace) 100 mg PO BID [facility] Last Admin: 12/09/16 17:27 Dose: 100 mg Heparin Sodium (Porcine) (Heparin) 5,000 units SC Q12 [facility] Last Admin: 12/09/16 10:28 Dose: 5,000 units Lactated Ringer's (Lactated Ringer's) 1,000 mls @ 70 mls/hr IV .[id number] [facility] Last Admin: 12/08/16 18:00 Dose: Not Given Ciprofloxacin (Cipro 200mg/100ml D5w) 100 mls @ 67 mls/hr IVPB Q12H [facility] Metronidazole (Flagyl) 250 mg in 50 mls @ 100 mls/hr IVPB Q8 [facility] Stop: 12/14/16 22:01 Lactic Acid (Lac-Hydrin 12% Lotion (225 G)) 1 gm EXT DAILY [facility] Last Admin: 12/09/16 10:00 Dose: Not Given Losartan Potassium (Cozaar) 25 mg PO DAILY [facility] Last Admin: 12/07/16 13:18 Dose: 25 mg Metoclopramide HCl (Reglan) 10 mg IVP Q6 [facility] Last Admin: 12/09/16 17:28 Dose: 10 mg Metoprolol Tartrate (Lopressor) 50 mg PO BID [facility] Last Admin: 12/09/16 18:28 Dose: Not Given Ondansetron HCl (Zofran Inj) 4 mg IVP Q4 PRN PRN Reason: Nausea/Vomiting Last Admin: 12/07/16 05:07 Dose: 4 mg Oxycodone/Acetaminophen (Percocet 5/325 Mg Tab) 2 tab PO Q4H PRN PRN Reason: Pain, moderate (4-7) Stop: 12/11/16 17:43 Last Admin: 12/09/16 17:24 Dose: 2 tab Pantoprazole Sodium (Protonix Inj) 40 mg IVP DAILY [facility] Last Admin: 12/09/16 10:27 Dose: 40 mg Simethicone (Mylicon Chew Tab) 80 mg PO Q6H PRN PRN Reason: GI distress Last Admin: 12/09/16 17:28 Dose: 80 mg - Labs Labs: 12/09/16 06:01 12/09/16 06:01 PT 12.4 SECONDS (9.7-12.2) H 12/02/16 01:58 INR 1.1 12/02/16 01:58 APTT 25 SECONDS (21-34) 12/02/16 01:58
[2016-12-09] MEDS: Ciprofloxacin 200mg/100ml D5W 100 ML IVPB SCH (19:22)
[2016-12-09] MEDS: metroNIDAZOLE IV 250mg/50 ml 250 MG/50 ML BAG IVPB SCH (21:56)
[2016-12-09] MEDS: Lactated Ringer's 1,000 ML IV SCH (23:44)
[2016-12-10] MEDS: metroNIDAZOLE IV 250mg/50 ml 250 MG/50 ML BAG IVPB SCH ×3 (05:58→22:54)
[2016-12-10] MEDS: Oxycodone/Acetaminophen 5/325 mg Tab PO PRN ×2 (06:00→18:03)
[2016-12-10] MEDS: Ciprofloxacin 200mg/100ml D5W 100 ML IVPB SCH ×2 (06:30→20:25)
--- NOTE | 2016-12-10 09:06 | CP.PCM.PN ---
Subjective - Date & Time of Evaluation Date of Evaluation: 12/10/16 Time of Evaluation: 09:58 - Subjective Subjective: Surgery Pt s&e. NAEON. Denies F/C/N/V/D/CP/SOB. + am. Tolerating liquid diet. Objective - Vital Signs/Intake and Output Vital Signs (last 24 hours): Temp Pulse Resp BP Pulse Ox 98.4 F 85 18 118/72 96 12/10/16 07:20 12/10/16 07:20 12/10/16 07:20 12/10/16 07:20 12/10/16 07:20 Intake and Output: 12/10/16 12/10/16 06:59 18:59 Intake Total 845 Balance 845 - Medications Medications: Current Medications Amlodipine Besylate (Norvasc) 5 mg PO DAILY [facility] Last Admin: 12/09/16 14:34 Dose: 5 mg Bacitracin (Bacitracin) 1 ea TOP DAILY [facility] Last Admin: 12/09/16 10:00 Dose: Not Given Benzocaine/Menthol (Cepacol Sore Throat) 1 brandie MT Q1 PRN PRN Reason: Sore Throat Last Admin: 12/03/16 02:48 Dose: 1 brandie Docusate Sodium (Colace) 100 mg PO BID [facility] Last Admin: 12/09/16 17:27 Dose: 100 mg Heparin Sodium (Porcine) (Heparin) 5,000 units SC Q12 [facility] Last Admin: 12/09/16 21:56 Dose: 5,000 units Lactated Ringer's (Lactated Ringer's) 1,000 mls @ 70 mls/hr IV .[id number] [facility] Last Admin: 12/09/16 23:44 Dose: Not Given Ciprofloxacin (Cipro 200mg/100ml D5w) 100 mls @ 67 mls/hr IVPB Q12H [facility] Last Admin: 12/10/16 06:30 Dose: 67 mls/hr Metronidazole (Flagyl) 250 mg in 50 mls @ 100 mls/hr IVPB Q8 [facility] Stop: 12/14/16 22:01 Last Admin: 12/10/16 05:58 Dose: 100 mls/hr Lactic Acid (Lac-Hydrin 12% Lotion (225 G)) 1 gm EXT DAILY [facility] Last Admin: 12/09/16 10:00 Dose: Not Given Losartan Potassium (Cozaar) 25 mg PO DAILY [facility] Last Admin: 12/07/16 13:18 Dose: 25 mg Metoclopramide HCl (Reglan) 10 mg IVP Q6 [facility] Last Admin: 12/10/16 06:36 Dose: 10 mg Metoprolol Tartrate (Lopressor) 50 mg PO BID [facility] Last Admin: 12/09/16 18:28 Dose: Not Given Ondansetron HCl (Zofran Inj) 4 mg IVP Q4 PRN PRN Reason: Nausea/Vomiting Last Admin: 12/07/16 05:07 Dose: 4 mg Oxycodone/Acetaminophen (Percocet 5/325 Mg Tab) 2 tab PO Q4H PRN PRN Reason: Pain, moderate (4-7) Stop: 12/11/16 17:43 Last Admin: 12/10/16 06:00 Dose: 2 tab Pantoprazole Sodium (Protonix Inj) 40 mg IVP DAILY [facility] Last Admin: 12/09/16 10:27 Dose: 40 mg Simethicone (Mylicon Chew Tab) 80 mg PO Q6H PRN PRN Reason: GI distress Last Admin: 12/09/16 17:28 Dose: 80 mg - Labs Labs: 12/09/16 06:01 12/09/16 06:01 PT 12.4 SECONDS (9.7-12.2) H 12/02/16 01:58 INR 1.1 12/02/16 01:58 APTT 25 SECONDS (21-34) 12/02/16 01:58 - Constitutional Appears: No Acute Distress - Head Exam Head Exam: ATRAUMATIC, NORMAL INSPECTION, NORMOCEPHALIC - Eye Exam Eye Exam: EOMI, Normal appearance, PERRL Pupil Exam: NORMAL ACCOMODATION, PERRL - ENT Exam ENT Exam: Mucous Membranes Moist, Normal Exam - Neck Exam Neck Exam: Full ROM, Normal Inspection. absent: Lymphadenopathy - Respiratory Exam Respiratory Exam: Clear to Ausculation Bilateral, NORMAL BREATHING PATTERN - Cardiovascular Exam Cardiovascular Exam: REGULAR RHYTHM, +S1, +S2. absent: Murmur - GI/Abdominal Exam GI & Abdominal Exam: Soft, Tenderness, Normal Bowel Sounds. absent: Distended, Firm Additional comments: Dressing C/D/I. - Extremities Exam Extremities Exam: Full ROM, Normal Inspection - Back Exam Back Exam: NORMAL INSPECTION - Neurological Exam Neurological Exam: Alert, Awake, CN II-XII Intact, Oriented x3 - Psychiatric Exam Psychiatric exam: Normal Affect, Normal Mood - Skin Skin Exam: Dry, Intact, Normal Color, Warm Assessment and Plan - Assessment and Plan (Free Text) Assessment: 66 yo F POD#8 s/p incarcerated umbilical hernia repair: + BM -Advance diet as tolerated. - Continue Colace and Reglan - Encourage OOB/Ambulation -Ok to DC for surgical standpoint. -Follow up with Dr. Hutchins in 1 week for benita removal. d/w Dr Winter
[2016-12-10] MEDS: Simethicone 80 mg Chewtab PO PRN (10:55)
[2016-12-10] MEDS: Bacitracin 500 Units/gm Oint Foilpak UD TOP SCH ×2 (11:00→18:09)
[2016-12-10] MEDS: Ammonium Lactate 12% Lotion (225 g) EXT SCH (11:00)
[2016-12-10 11:29] LABS: BASO # 0.1 K/uL (0.0-0.2); BASO % 0.2 % (0.0-2.0); EOS # 0.3 K/uL (0.0-0.7); EOS % 1.2 % (0.0-4.0); HEMATOCRIT 30.4 % (34.0-47.0); LYMPH # 2.5 K/uL (1.0-4.3); LYMPH % 9.5 % (20.0-40.0); MEAN CELL VOLUME 76.7 fL (81.0-99.0); MEAN CORPUSCULAR HEMOGLOBIN 24.6 pg (27.0-31.0); MEAN CORPUSCULAR HGB CONC 32.1 g/dL (33.0-37.0); MEAN PLATELET VOLUME 7.7 fL (7.2-11.7); MONO # 1.2 K/uL (0.0-0.8); MONO % 4.7 % (0.0-10.0); NRBC % 0.1 % (0.0-2.0); PLATELET COUNT 642 K/uL (130-400); WHITE BLOOD COUNT 25.8 K/uL (4.8-10.8)
[2016-12-10 11:43] LABS: POTASSIUM 3.7 mmol/L (3.6-5.2)
[2016-12-10 11:44] LABS: BILIRUBIN,TOTAL 0.7 mg/dL (0.2-1.3); TOTAL PROTEIN 7.7 g/dL (6.3-8.3)
[2016-12-10 11:45] LABS: CALCIUM 8.9 mg/dl (8.6-10.4)
[2016-12-10 12:19] LABS: EOSINOPHIL 2 % (0-4); NEUTROPHIL 83 % (50-75); TOTAL CELLS COUNTED 100
[2016-12-10 12:20] LABS: LARGE PLATELETS PRESENT
[2016-12-10 17:16] LABS: RBC URINE 12 /hpf (0-3); URINE BACTERIA RARE (<OCC); URINE BILIRUBIN NEGATIVE (NEGATIVE); URINE BLOOD NEGATIVE (NEGATIVE); URINE COLOR Amber (YELLOW); URINE GLUCOSE (UA) NORMAL (Normal); URINE KETONE 1+ mg/dL (NEGATIVE); URINE LEUKOCYTE ESTERASE TRACE Leu/uL (Negative); URINE PROTEIN 1+ mg/dL (NEGATIVE); URINE UROBILINOGEN NORMAL mg/dL (0.2-1.0); WBC URINE 23 /hpf (0-5)
[2016-12-11] MEDS: Oxycodone/Acetaminophen 5/325 mg Tab PO PRN ×4 (00:20→22:55)
[2016-12-11] MEDS: metroNIDAZOLE IV 250mg/50 ml 250 MG/50 ML BAG IVPB SCH ×3 (05:26→22:56)
[2016-12-11] MEDS: Ciprofloxacin 200mg/100ml D5W 100 ML IVPB SCH ×2 (06:27→20:22)
[2016-12-11] MEDS: Ammonium Lactate 12% Lotion (225 g) EXT SCH (11:13)
[2016-12-11 11:40] LABS: BASO # 0.1 K/uL (0.0-0.2); BASO % 0.4 % (0.0-2.0); EOS # 0.4 K/uL (0.0-0.7); EOS % 1.7 % (0.0-4.0); HEMATOCRIT 27.3 % (34.0-47.0); LYMPH # 2.1 K/uL (1.0-4.3); LYMPH % 10.2 % (20.0-40.0); MEAN CELL VOLUME 76.6 fL (81.0-99.0); MEAN CORPUSCULAR HEMOGLOBIN 24.9 pg (27.0-31.0); MEAN CORPUSCULAR HGB CONC 32.5 g/dL (33.0-37.0); MEAN PLATELET VOLUME 7.7 fL (7.2-11.7); MONO # 0.9 K/uL (0.0-0.8); MONO % 4.3 % (0.0-10.0); RED CELL DISTRIBUTION WIDTH 17.4 % (11.5-14.5); WHITE BLOOD COUNT 20.8 K/uL (4.8-10.8)
[2016-12-11 12:00] LABS: CHLORIDE 98 mmol/L (98-107)
[2016-12-11 12:01] LABS: POTASSIUM 3.4 mmol/L (3.6-5.2); SODIUM 138 mmol/L (132-148)
[2016-12-11 12:03] LABS: GFR AFRICAN-AMERICAN > 60
[2016-12-11 12:04] LABS: BLOOD UREA NITROGEN 16 mg/dL (7-17); CALCIUM 8.7 mg/dl (8.6-10.4); CARBON DIOXIDE 23 mmol/L (22-30); GLUCOSE,RANDOM 99 mg/dL (65-105)
[2016-12-11] MEDS ORDERED: Potassium Chloride 20 mEq/15 ml LIQ UD PO ONE (13:00)
--- NOTE | 2016-12-11 15:29 | CP.PCM.PN ---
Subjective - Date & Time of Evaluation Date of Evaluation: 12/11/16 Time of Evaluation: 15:26 - Subjective Subjective: Surgery Pt s&e, NAEON. Denies F/C/N/V/D/Cp/SOB. + amb. tolerating diet. + BM. + void. Objective - Vital Signs/Intake and Output Vital Signs (last 24 hours): Temp Pulse Resp BP Pulse Ox 98.2 F 80 20 130/70 96 12/11/16 08:00 12/11/16 08:00 12/11/16 08:00 12/11/16 11:00 12/11/16 08:00 Intake and Output: 12/11/16 12/11/16 06:59 18:59 Intake Total 690 Balance 690 - Medications Medications: Current Medications Amlodipine Besylate (Norvasc) 5 mg PO DAILY [facility] Last Admin: 12/11/16 11:00 Dose: 5 mg Bacitracin (Bacitracin) 1 ea TOP DAILY@1600 [facility] Last Admin: 12/10/16 18:09 Dose: 1 ea Benzocaine/Menthol (Cepacol Sore Throat) 1 brandie MT Q1 PRN PRN Reason: Sore Throat Last Admin: 12/03/16 02:48 Dose: 1 brandie Docusate Sodium (Colace) 100 mg PO BID [facility] Last Admin: 12/11/16 11:00 Dose: 100 mg Heparin Sodium (Porcine) (Heparin) 5,000 units SC Q12 [facility] Last Admin: 12/11/16 11:00 Dose: Not Given Lactated Ringer's (Lactated Ringer's) 1,000 mls @ 70 mls/hr IV .[id number] [facility] Last Admin: 12/09/16 23:44 Dose: Not Given Ciprofloxacin (Cipro 200mg/100ml D5w) 100 mls @ 67 mls/hr IVPB Q12H [facility] Last Admin: 12/11/16 06:27 Dose: 67 mls/hr Metronidazole (Flagyl) 250 mg in 50 mls @ 100 mls/hr IVPB Q8 [facility] Stop: 12/14/16 22:01 Last Admin: 12/11/16 13:26 Dose: 100 mls/hr Lactic Acid (Lac-Hydrin 12% Lotion (225 G)) 1 gm EXT DAILY [facility] Last Admin: 12/11/16 11:13 Dose: 1 % Losartan Potassium (Cozaar) 25 mg PO DAILY [facility] Last Admin: 12/07/16 13:18 Dose: 25 mg Metoclopramide HCl (Reglan) 10 mg IVP Q6 [facility] Last Admin: 12/11/16 11:12 Dose: 10 mg Metoprolol Tartrate (Lopressor) 50 mg PO BID [facility] Last Admin: 12/11/16 11:00 Dose: 50 mg Ondansetron HCl (Zofran Inj) 4 mg IVP Q4 PRN PRN Reason: Nausea/Vomiting Last Admin: 12/07/16 05:07 Dose: 4 mg Oxycodone/Acetaminophen (Percocet 5/325 Mg Tab) 2 tab PO Q4H PRN PRN Reason: Pain, moderate (4-7) Stop: 12/11/16 17:43 Last Admin: 12/11/16 12:19 Dose: 2 tab Pantoprazole Sodium (Protonix Inj) 40 mg IVP DAILY [facility] Last Admin: 12/11/16 10:55 Dose: 40 mg Simethicone (Mylicon Chew Tab) 80 mg PO Q6H PRN PRN Reason: GI distress Last Admin: 12/10/16 10:55 Dose: 80 mg - Labs Labs: 12/11/16 11:27 12/11/16 11:27 PT 12.4 SECONDS (9.7-12.2) H 12/02/16 01:58 INR 1.1 12/02/16 01:58 APTT 25 SECONDS (21-34) 12/02/16 01:58 - Constitutional Appears: No Acute Distress - Head Exam Head Exam: ATRAUMATIC, NORMAL INSPECTION, NORMOCEPHALIC - Eye Exam Eye Exam: EOMI, Normal appearance, PERRL Pupil Exam: NORMAL ACCOMODATION, PERRL - ENT Exam ENT Exam: Mucous Membranes Moist, Normal Exam - Neck Exam Neck Exam: Full ROM, Normal Inspection. absent: Lymphadenopathy - Respiratory Exam Respiratory Exam: Clear to Ausculation Bilateral, NORMAL BREATHING PATTERN - Cardiovascular Exam Cardiovascular Exam: REGULAR RHYTHM, +S1, +S2. absent: Murmur - GI/Abdominal Exam GI & Abdominal Exam: Soft, Normal Bowel Sounds. absent: Distended, Firm, Tenderness Additional comments: Incision C/D/I. [place]. - Exam Exam: NORMAL INSPECTION - Extremities Exam Extremities Exam: Full ROM, Normal Capillary Refill, Normal Inspection. absent : Joint Swelling, Pedal Edema - Back Exam Back Exam: NORMAL INSPECTION - Neurological Exam Neurological Exam: Alert, Awake, CN II-XII Intact, Normal Gait, Oriented x3 - Psychiatric Exam Psychiatric exam: Normal Affect, Normal Mood - Skin Skin Exam: Dry, Intact, Normal Color, Warm. absent: Erythema Assessment and Plan - Assessment and Plan (Free Text) Assessment: 66 yo F POD#9 s/p incarcerated umbilical hernia repair: + BM Leukocytosis -Regular diet - Continue Colace and Reglan - Encourage OOB/Ambulation/IS -ABX -Medical management -MOnitor labs.
[2016-12-11] MEDS: Bacitracin 500 Units/gm Oint Foilpak UD TOP SCH (17:36)
[2016-12-11] MEDS ORDERED: Tramadol 25 mg PO ONE (21:00)
--- NOTE | 2016-12-11 21:51 | CT ---
EXAM: CT Abdomen and Pelvis Without Intravenous Contrast EXAM DATE/TIME: Exam ordered 12/11/2016 8:29 PM CLINICAL HISTORY: 66 years old, female; Pain; Abdominal pain; Generalized; Prior surgery; Surgery date: Post-operative (0-2 days); Surgery type: Hernia TECHNIQUE: Axial computed tomography images of the abdomen and pelvis without intravenous contrast. All CT scans at this facility use one or more dose reduction techniques, viz.: automated exposure control; ma/kV adjustment per patient size (including targeted exams where dose is matched to indication; i.e. head); or iterative reconstruction technique. Coronal and sagittal reformatted images were created and reviewed. COMPARISON: CT - ABD PELVIS W/O PO OR IV CONT 12/07/2016 10:40:04 PM FINDINGS: Lower thorax: Mosaic perfusion abnormality is noted at the lung bases. ABDOMEN: Liver: Unremarkable. Gallbladder and bile ducts: Unremarkable. No calcified stones. No ductal dilation. Pancreas: Unremarkable. No ductal dilation. Spleen: Unremarkable. No splenomegaly. Adrenals: Unremarkable. No mass. Kidneys and ureters: There is mild right-sided hydronephrosis. Stomach and bowel: This is significant degradation of the images body and inspissated barium within the abdominal and pelvic bowel loops. Markedly dilated air and fluid-filled small bowel loops are seen in the midabdomen. The small bowel dilatation is slightly more conspicuous than on the previous examination. No mucosal thickening. Appendix: No findings to suggest acute appendicitis. PELVIS: Bladder: Unremarkable. No stones. Reproductive: Unremarkable as visualized. ABDOMEN and PELVIS: Intraperitoneal space: Mild Ascites is seen in the pelvis. No free air. Bones/joints: No acute fracture. No dislocation. Soft tissues: There is a hematoma with air noted to within the anterior abdominal wall at the level of the incision. The fluid collection measures 7.6 x 4 x 5 cm compared to a previous measurement of 6.7 x 3.5 x 6.7 cm. Vasculature: Unremarkable. No abdominal aortic aneurysm. Lymph nodes: Unremarkable. No enlarged lymph nodes. IMPRESSION: 1. Dilated air and fluid-filled small bowel loops. This appears slightly more conspicuous than on the previous examination. This could represent partial small bowel obstruction or early complete small bowel obstruction. Many of the abdomen and pelvis are markedly degraded by beam hardening artifact from inspissated barium. 2. Mild right-sided hydronephrosis. 3. Mosaic perfusion abnormality the lung bases. This could reflect air-trapping, venoocclusive disease or interstitial lung disease among others. 4. Abdominal wall hematoma related to the incision. 5. Mild Pelvic ascites is present.
[2016-12-11] MEDS: Lactated Ringer's 1,000 ML IV SCH (23:21)
[2016-12-12] MEDS: Oxycodone/Acetaminophen 5/325 mg Tab PO PRN ×3 (03:33→23:40)
[2016-12-12] MEDS: Dextrose 5%/0.45% NS 1,000 ML IV SCH ×3 (04:00→12:25)
[2016-12-12] MEDS: metroNIDAZOLE IV 250mg/50 ml 250 MG/50 ML BAG IVPB SCH ×3 (05:33→21:02)
[2016-12-12] MEDS: Ciprofloxacin 200mg/100ml D5W 100 ML IVPB SCH ×2 (06:59→18:05)
[2016-12-12] MEDS: Simethicone 80 mg Chewtab PO PRN (07:02)
--- NOTE | 2016-12-12 08:30 | CP.PCM.PN ---
Subjective - Date & Time of Evaluation Date of Evaluation: 12/12/16 Time of Evaluation: 08:25 - Subjective Subjective: General Surgery - Dr. Winter Pt S&E. Pt had 1 episode of vomiting yesterday ~100 cc yellowish/green liquid. She states she tolerated lunch yesterday but then didn't eat much at dinner d/ t nausea. Her abdominal pain is mild. Pt states last BM was yesterday and she is passing flatus. No F/C, Sob/Cp. She has been OOB and ambulating with assistance. Objective - Vital Signs/Intake and Output Vital Signs (last 24 hours): Temp Pulse Resp BP Pulse Ox 98.2 F 92 H 20 125/79 95 12/12/16 07:00 12/12/16 07:00 12/12/16 07:00 12/12/16 07:00 12/12/16 07:00 Intake and Output: 12/12/16 12/12/16 06:59 18:59 Intake Total 380 Balance 380 - Medications Medications: Current Medications Amlodipine Besylate (Norvasc) 5 mg PO DAILY [facility] Last Admin: 12/11/16 11:00 Dose: 5 mg Bacitracin (Bacitracin) 1 ea TOP DAILY@1600 [facility] Last Admin: 12/11/16 17:36 Dose: Not Given Benzocaine/Menthol (Cepacol Sore Throat) 1 brandie MT Q1 PRN PRN Reason: Sore Throat Last Admin: 12/03/16 02:48 Dose: 1 brandie Docusate Sodium (Colace) 100 mg PO BID [facility] Last Admin: 12/11/16 17:56 Dose: 100 mg Heparin Sodium (Porcine) (Heparin) 5,000 units SC Q12 [facility] Last Admin: 12/11/16 22:22 Dose: Not Given Lactated Ringer's (Lactated Ringer's) 1,000 mls @ 70 mls/hr IV .[id number] [facility] Last Admin: 12/11/16 23:21 Dose: Not Given Ciprofloxacin (Cipro 200mg/100ml D5w) 100 mls @ 67 mls/hr IVPB Q12H [facility] Last Admin: 12/12/16 06:59 Dose: 67 mls/hr Metronidazole (Flagyl) 250 mg in 50 mls @ 100 mls/hr IVPB Q8 [facility] Stop: 12/14/16 22:01 Last Admin: 12/12/16 05:33 Dose: 100 mls/hr Dextrose/Sodium Chloride (Dextrose 5%/0.45% Ns 1000 Ml) 1,000 mls @ 70 mls/hr IV .[id number] [facility] Last Admin: 12/12/16 05:33 Dose: 70 mls/hr Lactic Acid (Lac-Hydrin 12% Lotion (225 G)) 1 gm EXT DAILY [facility] Last Admin: 12/11/16 11:13 Dose: 1 % Losartan Potassium (Cozaar) 25 mg PO DAILY [facility] Last Admin: 12/07/16 13:18 Dose: 25 mg Metoclopramide HCl (Reglan) 10 mg IVP Q6 [facility] Last Admin: 12/12/16 06:59 Dose: 10 mg Metoprolol Tartrate (Lopressor) 50 mg PO BID [facility] Last Admin: 12/11/16 17:56 Dose: 50 mg Ondansetron HCl (Zofran Inj) 4 mg IVP Q4 PRN PRN Reason: Nausea/Vomiting Last Admin: 12/12/16 01:01 Dose: 4 mg Oxycodone/Acetaminophen (Percocet 5/325 Mg Tab) 2 tab PO Q4H PRN PRN Reason: Pain, moderate (4-7) Stop: 12/14/16 19:01 Last Admin: 12/12/16 03:33 Dose: 2 tab Pantoprazole Sodium (Protonix Inj) 40 mg IVP DAILY [facility] Last Admin: 12/11/16 10:55 Dose: 40 mg Simethicone (Mylicon Chew Tab) 80 mg PO Q6H PRN PRN Reason: GI distress Last Admin: 12/12/16 07:02 Dose: 80 mg - Labs Labs: 12/11/16 11:27 12/11/16 11:27 PT 12.4 SECONDS (9.7-12.2) H 12/02/16 01:58 INR 1.1 12/02/16 01:58 APTT 25 SECONDS (21-34) 12/02/16 01:58 - Constitutional Appears: No Acute Distress - Head Exam Head Exam: ATRAUMATIC, NORMAL INSPECTION, NORMOCEPHALIC - Respiratory Exam Respiratory Exam: NORMAL BREATHING PATTERN. absent: Respiratory Distress - Cardiovascular Exam Cardiovascular Exam: REGULAR RHYTHM - GI/Abdominal Exam GI & Abdominal Exam: Distended, Soft. absent: Firm, Guarding, Tenderness, Rebound - Neurological Exam Neurological Exam: Alert, Oriented x3 - Psychiatric Exam Psychiatric exam: Normal Affect, Normal Mood - Skin Skin Exam: Dry, Intact Assessment and Plan - Assessment and Plan (Free Text) Assessment: 66yo F POD #10 s/p incarcerated umbilical hernia repair, with post op ileus -NPO with sips/chips, may chew gum -Encourage OOB/ambulation -Continue stool softeners and prokinetics -F/U WBC DW Dr Moy Mabry PGY3
[2016-12-12] MEDS: Ammonium Lactate 12% Lotion (225 g) EXT SCH (11:00)
[2016-12-12 12:10] LABS: BASO % 0.3 % (0.0-2.0); EOS # 0.3 K/uL (0.0-0.7); EOS % 1.5 % (0.0-4.0); HEMATOCRIT 29.9 % (34.0-47.0); LYMPH # 1.8 K/uL (1.0-4.3); LYMPH % 9.7 % (20.0-40.0); MEAN CELL VOLUME 77.2 fL (81.0-99.0); MEAN CORPUSCULAR HEMOGLOBIN 24.8 pg (27.0-31.0); MEAN CORPUSCULAR HGB CONC 32.2 g/dL (33.0-37.0); MEAN PLATELET VOLUME 7.8 fL (7.2-11.7); MONO # 0.8 K/uL (0.0-0.8); MONO % 4.6 % (0.0-10.0); NRBC % 0.1 % (0.0-2.0); PLATELET COUNT 628 K/uL (130-400); RED CELL DISTRIBUTION WIDTH 17.4 % (11.5-14.5); WHITE BLOOD COUNT 18.4 K/uL (4.8-10.8)
[2016-12-12 12:16] LABS: POTASSIUM 3.6 mmol/L (3.6-5.2)
[2016-12-12 12:19] LABS: CALCIUM 8.9 mg/dl (8.6-10.4)
[2016-12-12 12:33] LABS: BASOPHIL 1 % (0-2); EOSINOPHIL 1 % (0-4); NEUTROPHIL 83 % (50-75); TOTAL CELLS COUNTED 100
[2016-12-12 12:34] LABS: LARGE PLATELETS PRESENT
[2016-12-12] MEDS: Bacitracin 500 Units/gm Oint Foilpak UD TOP SCH (15:37)
--- NOTE | 2016-12-12 22:01 | CP.PCM.PN ---
Subjective - Date & Time of Evaluation Date of Evaluation: 12/12/16 Time of Evaluation: 22:01 - Subjective Subjective: Patient is showing some improvement. Bowel movements minimally noted. Liquid diet started. Vital signs stable. We'll continue the current treatment Objective - Vital Signs/Intake and Output Vital Signs (last 24 hours): Temp Pulse Resp BP Pulse Ox 97.0 F L 96 H 20 136/76 98 12/12/16 15:05 12/12/16 15:05 12/12/16 15:05 12/12/16 18:04 12/12/16 15:05 Intake and Output: 12/12/16 12/13/16 18:59 06:59 Intake Total 380 Balance 380 - Medications Medications: Current Medications Amlodipine Besylate (Norvasc) 5 mg PO DAILY [facility] Last Admin: 12/12/16 10:00 Dose: Not Given Bacitracin (Bacitracin) 1 ea TOP DAILY@1600 [facility] Last Admin: 12/12/16 15:37 Dose: Not Given Benzocaine/Menthol (Cepacol Sore Throat) 1 brandie MT Q1 PRN PRN Reason: Sore Throat Last Admin: 12/03/16 02:48 Dose: 1 brandie Docusate Sodium (Colace) 100 mg PO BID [facility] Last Admin: 12/12/16 18:09 Dose: 100 mg Heparin Sodium (Porcine) (Heparin) 5,000 units SC Q12 [facility] Last Admin: 12/12/16 21:03 Dose: Not Given Ciprofloxacin (Cipro 200mg/100ml D5w) 100 mls @ 67 mls/hr IVPB Q12H [facility] Last Admin: 12/12/16 18:05 Dose: 67 mls/hr Metronidazole (Flagyl) 250 mg in 50 mls @ 100 mls/hr IVPB Q8 [facility] Stop: 12/14/16 22:01 Last Admin: 12/12/16 21:02 Dose: 100 mls/hr Dextrose/Sodium Chloride (Dextrose 5%/0.45% Ns 1000 Ml) 1,000 mls @ 50 mls/hr IV .Q20H [facility] Last Admin: 12/12/16 12:25 Dose: 50 mls/hr Ketorolac Tromethamine (Toradol) 10 mg PO Q6 PRN PRN Reason: Pain, Mild (1-3) Lactic Acid (Lac-Hydrin 12% Lotion (225 G)) 1 gm EXT DAILY [facility] Last Admin: 12/12/16 11:00 Dose: 1 % Losartan Potassium (Cozaar) 25 mg PO DAILY [facility] Last Admin: 12/07/16 13:18 Dose: 25 mg Metoclopramide HCl (Reglan) 10 mg IVP Q6 [facility] Last Admin: 12/12/16 18:09 Dose: 10 mg Metoprolol Tartrate (Lopressor) 50 mg PO BID [facility] Last Admin: 12/12/16 18:04 Dose: 50 mg Ondansetron HCl (Zofran Inj) 4 mg IVP Q4 PRN PRN Reason: Nausea/Vomiting Last Admin: 12/12/16 12:45 Dose: 4 mg Oxycodone/Acetaminophen (Percocet 5/325 Mg Tab) 2 tab PO Q4H PRN PRN Reason: Pain, moderate (4-7) Stop: 12/14/16 19:01 Last Admin: 12/12/16 18:02 Dose: 2 tab Pantoprazole Sodium (Protonix Inj) 40 mg IVP DAILY [facility] Last Admin: 12/12/16 10:00 Dose: 40 mg Simethicone (Mylicon Chew Tab) 80 mg PO Q6H PRN PRN Reason: GI distress Last Admin: 12/12/16 07:02 Dose: 80 mg - Labs Labs: 12/12/16 12:05 12/12/16 12:05 PT 12.4 SECONDS (9.7-12.2) H 12/02/16 01:58 INR 1.1 12/02/16 01:58 APTT 25 SECONDS (21-34) 12/02/16 01:58
[2016-12-13] MEDS: metroNIDAZOLE IV 250mg/50 ml 250 MG/50 ML BAG IVPB SCH ×3 (06:05→21:52)
[2016-12-13 06:41] LABS: BASO % 0.2 % (0.0-2.0); EOS # 0.2 K/uL (0.0-0.7); EOS % 1.2 % (0.0-4.0); HEMATOCRIT 26.9 % (34.0-47.0); LYMPH # 1.5 K/uL (1.0-4.3); LYMPH % 7.6 % (20.0-40.0); MEAN CELL VOLUME 76.4 fL (81.0-99.0); MEAN CORPUSCULAR HGB CONC 32.7 g/dL (33.0-37.0); MEAN PLATELET VOLUME 7.4 fL (7.2-11.7); MONO # 1.2 K/uL (0.0-0.8); MONO % 6.2 % (0.0-10.0); NRBC % 0.1 % (0.0-2.0); PLATELET COUNT 594 K/uL (130-400); RED CELL DISTRIBUTION WIDTH 17.6 % (11.5-14.5)
--- NOTE | 2016-12-13 06:52 | CP.PCM.PN ---
Subjective - Date & Time of Evaluation Date of Evaluation: 12/13/16 Time of Evaluation: 06:50 - Subjective Subjective: Gen Surg: Dr Winter Pt S&E. NAEO. No further N/V since yesterday morning. States she is feeling well. Has not had any further BM or flatus however. Chewing gum and ambulating. Objective - Vital Signs/Intake and Output Vital Signs (last 24 hours): Temp Pulse Resp BP Pulse Ox 98.2 F 91 H 20 120/78 96 12/12/16 23:15 12/12/16 23:15 12/12/16 23:15 12/12/16 23:15 12/12/16 23:15 Intake and Output: 12/12/16 12/13/16 18:59 06:59 Intake Total 380 Output Total 100 Balance 280 - Medications Medications: Current Medications Amlodipine Besylate (Norvasc) 5 mg PO DAILY [facility] Last Admin: 12/12/16 10:00 Dose: Not Given Bacitracin (Bacitracin) 1 ea TOP DAILY@1600 [facility] Last Admin: 12/12/16 15:37 Dose: Not Given Benzocaine/Menthol (Cepacol Sore Throat) 1 brandie MT Q1 PRN PRN Reason: Sore Throat Last Admin: 12/03/16 02:48 Dose: 1 brandie Docusate Sodium (Colace) 100 mg PO BID [facility] Last Admin: 12/12/16 18:09 Dose: 100 mg Heparin Sodium (Porcine) (Heparin) 5,000 units SC Q12 [facility] Last Admin: 12/12/16 21:03 Dose: Not Given Ciprofloxacin (Cipro 200mg/100ml D5w) 100 mls @ 67 mls/hr IVPB Q12H [facility] Last Admin: 12/12/16 18:05 Dose: 67 mls/hr Metronidazole (Flagyl) 250 mg in 50 mls @ 100 mls/hr IVPB Q8 [facility] Stop: 12/14/16 22:01 Last Admin: 12/13/16 06:05 Dose: 100 mls/hr Dextrose/Sodium Chloride (Dextrose 5%/0.45% Ns 1000 Ml) 1,000 mls @ 50 mls/hr IV .Q20H [facility] Last Admin: 12/12/16 12:25 Dose: 50 mls/hr Ketorolac Tromethamine (Toradol) 10 mg PO Q6 PRN PRN Reason: Pain, Mild (1-3) Lactic Acid (Lac-Hydrin 12% Lotion (225 G)) 1 gm EXT DAILY [facility] Last Admin: 12/12/16 11:00 Dose: 1 % Losartan Potassium (Cozaar) 25 mg PO DAILY [facility] Last Admin: 12/07/16 13:18 Dose: 25 mg Metoclopramide HCl (Reglan) 10 mg IVP Q6 [facility] Last Admin: 12/12/16 23:42 Dose: 10 mg Metoprolol Tartrate (Lopressor) 50 mg PO BID [facility] Last Admin: 12/12/16 18:04 Dose: 50 mg Ondansetron HCl (Zofran Inj) 4 mg IVP Q4 PRN PRN Reason: Nausea/Vomiting Last Admin: 12/12/16 12:45 Dose: 4 mg Oxycodone/Acetaminophen (Percocet 5/325 Mg Tab) 2 tab PO Q4H PRN PRN Reason: Pain, moderate (4-7) Stop: 12/14/16 19:01 Last Admin: 12/12/16 23:40 Dose: 2 tab Pantoprazole Sodium (Protonix Inj) 40 mg IVP DAILY [facility] Last Admin: 12/12/16 10:00 Dose: 40 mg Simethicone (Mylicon Chew Tab) 80 mg PO Q6H PRN PRN Reason: GI distress Last Admin: 12/12/16 07:02 Dose: 80 mg - Labs Labs: 12/13/16 06:31 12/12/16 12:05 PT 12.4 SECONDS (9.7-12.2) H 12/02/16 01:58 INR 1.1 12/02/16 01:58 APTT 25 SECONDS (21-34) 12/02/16 01:58 - Constitutional Appears: Non-toxic - Respiratory Exam Respiratory Exam: absent: Accessory Muscle Use, Respiratory Distress - Cardiovascular Exam Cardiovascular Exam: REGULAR RHYTHM - GI/Abdominal Exam GI & Abdominal Exam: Distended, Soft. absent: Firm, Guarding, Rigid, Tenderness Assessment and Plan - Assessment and Plan (Free Text) Assessment: 66yo F POD #11 s/p incarcerated umbilical hernia repair, with post op ileus -GI series today to evaluate contrast progression -Encourage OOB/ambulation -Continue stool softeners and prokinetics -pt may have sips/ice and chewing gum for now -will consider diet advancement pending results of imaging -F/U WBC DW Dr Moy Valerio PGY3
[2016-12-13] MEDS: Ciprofloxacin 200mg/100ml D5W 100 ML IVPB SCH ×2 (06:55→18:35)
[2016-12-13 06:58] LABS: CHLORIDE 99 mmol/L (98-107); SODIUM 136 mmol/L (132-148)
[2016-12-13 06:59] LABS: POTASSIUM 3.5 mmol/L (3.6-5.2)
[2016-12-13 07:01] LABS: ALB/GLOB RATIO 0.9 (1.0-2.1); ALKALINE PHOSPHATASE 90 U/L (38-126); ALT/SGPT 86 U/L (9-52); AST/SGOT 108 U/L (14-36); BILIRUBIN,TOTAL 0.4 mg/dL (0.2-1.3); BLOOD UREA NITROGEN 15 mg/dL (7-17); CARBON DIOXIDE 25 mmol/L (22-30); GFR AFRICAN-AMERICAN > 60; GLUCOSE,RANDOM 107 mg/dL (65-105); TOTAL PROTEIN 6.9 g/dL (6.3-8.3)
[2016-12-13 07:02] LABS: CALCIUM 8.2 mg/dl (8.6-10.4)
[2016-12-13 08:38] LABS: EOSINOPHIL 2 % (0-4); MYELOCYTE 1 % (0-0); TOTAL CELLS COUNTED 100
[2016-12-13 08:39] LABS: METAMYELOCYTE 1 % (0-0); NEUTROPHIL 73 % (50-75)
[2016-12-13 08:41] LABS: LARGE PLATELETS PRESENT
[2016-12-13] MEDS: Ammonium Lactate 12% Lotion (225 g) EXT SCH (10:17)
[2016-12-13] MEDS: Oxycodone/Acetaminophen 5/325 mg Tab PO PRN ×2 (12:22→18:39)
[2016-12-13] MEDS: Dextrose 5%/0.45% NS 1,000 ML IV SCH (12:50)
--- NOTE | 2016-12-13 14:12 | RAD ---
HISTORY: transit of contrast COMPARISON: Correlation made with CT scan abdomen pelvis 12/11/2016 FINDINGS: BOWEL: Re- demonstrated are multiple distended loops of small bowel that exhibit non differential air-fluid levels. Dense contrast material appears to opacify what may represent the cecum and proximal ascending colon and probably the collapsed descending colon. Metallic skin closure benita seen along right parasagittal lower abdominal wall and pelvis BONES: Osseous structures appear grossly unremarkable so far as can be seen on this limited exam OTHER FINDINGS: None. IMPRESSION: Re- demonstrated are multiple distended loops of small bowel which exhibit non differential air-fluid levels. Dense contrast material appears to opacify what may represent the cecum and proximal ascending colon and probably the collapsed descending colon
[2016-12-13] MEDS: Bacitracin 500 Units/gm Oint Foilpak UD TOP SCH (17:44)
[2016-12-14] MEDS: Oxycodone/Acetaminophen 5/325 mg Tab PO PRN (00:01)
[2016-12-14] MEDS: Dextrose 5%/0.45% NS 1,000 ML IV SCH ×2 (05:20→23:42)
[2016-12-14] MEDS: metroNIDAZOLE IV 250mg/50 ml 250 MG/50 ML BAG IVPB SCH ×3 (05:34→21:23)
[2016-12-14] MEDS: Ciprofloxacin 200mg/100ml D5W 100 ML IVPB SCH ×2 (06:10→18:18)
[2016-12-14 08:30] LABS: BASO % 0.2 % (0.0-2.0); EOS # 0.2 K/uL (0.0-0.7); EOS % 1.4 % (0.0-4.0); HEMATOCRIT 26.3 % (34.0-47.0); LYMPH # 1.5 K/uL (1.0-4.3); LYMPH % 9.9 % (20.0-40.0); MEAN CELL VOLUME 77.4 fL (81.0-99.0); MEAN CORPUSCULAR HEMOGLOBIN 24.7 pg (27.0-31.0); MEAN CORPUSCULAR HGB CONC 31.9 g/dL (33.0-37.0); MEAN PLATELET VOLUME 7.5 fL (7.2-11.7); MONO # 1.4 K/uL (0.0-0.8); MONO % 8.8 % (0.0-10.0); PLATELET COUNT 592 K/uL (130-400); RED CELL DISTRIBUTION WIDTH 17.3 % (11.5-14.5); WHITE BLOOD COUNT 15.6 K/uL (4.8-10.8)
[2016-12-14 08:43] LABS: CHLORIDE 97 mmol/L (98-107); SODIUM 136 mmol/L (132-148)
[2016-12-14 08:44] LABS: POTASSIUM 3.4 mmol/L (3.6-5.2)
[2016-12-14 08:45] LABS: GFR AFRICAN-AMERICAN > 60
[2016-12-14 08:46] LABS: ALB/GLOB RATIO 0.9 (1.0-2.1); ALKALINE PHOSPHATASE 81 U/L (38-126); AST/SGOT 100 U/L (14-36); BILIRUBIN,TOTAL 0.5 mg/dL (0.2-1.3); BLOOD UREA NITROGEN 14 mg/dL (7-17); CARBON DIOXIDE 25 mmol/L (22-30); TOTAL PROTEIN 6.7 g/dL (6.3-8.3)
[2016-12-14 08:47] LABS: ALT/SGPT 100 U/L (9-52); CALCIUM 8.1 mg/dl (8.6-10.4); GLUCOSE,RANDOM 97 mg/dL (65-105)
[2016-12-14 10:33] LABS: NEUTROPHIL 81 % (50-75); REACTIVE LYMPHOCYTES 1 % (0-0); TOTAL CELLS COUNTED 100
[2016-12-14 10:35] LABS: LARGE PLATELETS PRESENT
--- NOTE | 2016-12-14 10:37 | CP.PCM.PN ---
Subjective - Date & Time of Evaluation Date of Evaluation: 12/14/16 Time of Evaluation: 07:20 - Subjective Subjective: General Surgery Pt S&E, NAEO. No N/V. Feeling well has some soreness at incision. +small flatus. Ambulating. Objective - Vital Signs/Intake and Output Vital Signs (last 24 hours): Temp Pulse Resp BP Pulse Ox 98.2 F 87 18 126/77 96 12/14/16 08:00 12/14/16 08:00 12/14/16 08:00 12/14/16 08:00 12/13/16 23:05 Intake and Output: 12/14/16 12/14/16 06:59 18:59 Intake Total 450 Balance 450 - Medications Medications: Current Medications Amlodipine Besylate (Norvasc) 5 mg PO DAILY [facility] Last Admin: 12/13/16 10:04 Dose: 5 mg Bacitracin (Bacitracin) 1 ea TOP DAILY@1600 [facility] Last Admin: 12/13/16 17:44 Dose: 1 ea Benzocaine/Menthol (Cepacol Sore Throat) 1 brandie MT Q1 PRN PRN Reason: Sore Throat Last Admin: 12/03/16 02:48 Dose: 1 brandie Docusate Sodium (Colace) 100 mg PO BID [facility] Last Admin: 12/13/16 17:32 Dose: 100 mg Heparin Sodium (Porcine) (Heparin) 5,000 units SC Q12 [facility] Last Admin: 12/13/16 21:59 Dose: Not Given Ciprofloxacin (Cipro 200mg/100ml D5w) 100 mls @ 67 mls/hr IVPB Q12H [facility] Last Admin: 12/14/16 06:10 Dose: 67 mls/hr Metronidazole (Flagyl) 250 mg in 50 mls @ 100 mls/hr IVPB Q8 [facility] Stop: 12/14/16 22:01 Last Admin: 12/14/16 05:34 Dose: 100 mls/hr Dextrose/Sodium Chloride (Dextrose 5%/0.45% Ns 1000 Ml) 1,000 mls @ 50 mls/hr IV .Q20H [facility] Last Admin: 12/14/16 05:20 Dose: Not Given Ketorolac Tromethamine (Toradol) 10 mg PO Q6 PRN PRN Reason: Pain, Mild (1-3) Lactic Acid (Lac-Hydrin 12% Lotion (225 G)) 1 gm EXT DAILY [facility] Last Admin: 12/13/16 10:17 Dose: 1 % Losartan Potassium (Cozaar) 25 mg PO DAILY [facility] Last Admin: 12/07/16 13:18 Dose: 25 mg Metoclopramide HCl (Reglan) 10 mg IVP Q6 [facility] Last Admin: 12/14/16 05:33 Dose: 10 mg Metoprolol Tartrate (Lopressor) 50 mg PO BID [facility] Last Admin: 12/13/16 17:36 Dose: 50 mg Ondansetron HCl (Zofran Inj) 4 mg IVP Q4 PRN PRN Reason: Nausea/Vomiting Last Admin: 12/12/16 12:45 Dose: 4 mg Oxycodone/Acetaminophen (Percocet 5/325 Mg Tab) 2 tab PO Q4H PRN PRN Reason: Pain, moderate (4-7) Stop: 12/14/16 19:01 Last Admin: 12/14/16 00:01 Dose: 2 tab Pantoprazole Sodium (Protonix Inj) 40 mg IVP DAILY [facility] Last Admin: 12/13/16 10:03 Dose: 40 mg Simethicone (Mylicon Chew Tab) 80 mg PO Q6H PRN PRN Reason: GI distress Last Admin: 12/12/16 07:02 Dose: 80 mg - Labs Labs: 12/14/16 08:21 12/14/16 08:27 PT 12.4 SECONDS (9.7-12.2) H 12/02/16 01:58 INR 1.1 12/02/16 01:58 APTT 25 SECONDS (21-34) 12/02/16 01:58 - Constitutional Appears: Non-toxic, No Acute Distress - Head Exam Head Exam: ATRAUMATIC, NORMOCEPHALIC - Eye Exam Eye Exam: EOMI. absent: Scleral icterus - Respiratory Exam Respiratory Exam: NORMAL BREATHING PATTERN. absent: Respiratory Distress - GI/Abdominal Exam GI & Abdominal Exam: Soft. absent: Distended, Guarding, Rigid, Tenderness Additional comments: Incision C/D/I - Neurological Exam Neurological Exam: Alert, Awake - Skin Skin Exam: Dry, Warm Assessment and Plan - Assessment and Plan (Free Text) Assessment: 66F POD#12 S/P incarcerated umbilical hernia repair, with post op ileus Plan: -Abd XR today to evaluate contrast progression -Encourage OOB/ambulation -Cont stool softeners and prokinetics -Possible diet advancement pending results of imaging -Monitor WBC, improving DW Dr Moy [place]amo PGY4
[2016-12-14] MEDS: Simethicone 80 mg Chewtab PO PRN (10:45)
[2016-12-14] MEDS: Ammonium Lactate 12% Lotion (225 g) EXT SCH (12:18)
[2016-12-14] MEDS ORDERED: Potassium Chloride 20 mEq/15 ml LIQ UD PO ONE ×2 (16:26→17:30)
--- NOTE | 2016-12-14 16:31 | CP.PCM.PN ---
Subjective - Date & Time of Evaluation Date of Evaluation: 12/14/16 Time of Evaluation: 15:20 - Subjective Subjective: Hospitalist Covering Dr. Hernandez Patient seen and examined with family members at bedside. Patient denies headache, denies chest pain, denies palpitations, reports burping and flatus, and reports she had a bowel movement today. Patient denies diarrhea. Patient reports she likes to use Tylenol; advised to hold off on Tylenol given rise in liver function numbers. Objective - Vital Signs/Intake and Output Vital Signs (last 24 hours): Temp Pulse Resp BP Pulse Ox 98 F 90 20 121/73 98 12/14/16 15:00 12/14/16 15:00 12/14/16 15:00 12/14/16 15:00 12/14/16 15:00 Intake and Output: 12/14/16 12/14/16 06:59 18:59 Intake Total 450 300 Balance 450 300 - Medications Medications: Current Medications Amlodipine Besylate (Norvasc) 5 mg PO DAILY [facility] Last Admin: 12/14/16 10:45 Dose: 5 mg Bacitracin (Bacitracin) 1 ea TOP DAILY@1600 [facility] Last Admin: 12/13/16 17:44 Dose: 1 ea Benzocaine/Menthol (Cepacol Sore Throat) 1 brandie MT Q1 PRN PRN Reason: Sore Throat Last Admin: 12/03/16 02:48 Dose: 1 brandie Bisacodyl (Dulcolax) 10 mg [place] ONCE PRN PRN Reason: Constipation Last Admin: 12/14/16 12:11 Dose: 10 mg Docusate Sodium (Colace) 100 mg PO BID [facility] Last Admin: 12/14/16 10:45 Dose: 100 mg Heparin Sodium (Porcine) (Heparin) 5,000 units SC Q12 [facility] Last Admin: 12/14/16 11:16 Dose: Not Given Ciprofloxacin (Cipro 200mg/100ml D5w) 100 mls @ 67 mls/hr IVPB Q12H [facility] Last Admin: 12/14/16 06:10 Dose: 67 mls/hr Metronidazole (Flagyl) 250 mg in 50 mls @ 100 mls/hr IVPB Q8 DEON Stop: 12/14/16 22:01 Last Admin: 12/14/16 14:37 Dose: 100 mls/hr Dextrose/Sodium Chloride (Dextrose 5%/0.45% Ns 1000 Ml) 1,000 mls @ 50 mls/hr IV .Q20H [facility] Last Admin: 12/14/16 05:20 Dose: Not Given Lactic Acid (Lac-Hydrin 12% Lotion (225 G)) 1 gm EXT DAILY [facility] Last Admin: 12/14/16 12:18 Dose: 1 % Losartan Potassium (Cozaar) 25 mg PO DAILY [facility] Last Admin: 12/07/16 13:18 Dose: 25 mg Metoclopramide HCl (Reglan) 10 mg IVP Q6 [facility] Last Admin: 12/14/16 12:11 Dose: 10 mg Metoprolol Tartrate (Lopressor) 50 mg PO BID [facility] Last Admin: 12/14/16 10:45 Dose: 50 mg Ondansetron HCl (Zofran Inj) 4 mg IVP Q4 PRN PRN Reason: Nausea/Vomiting Last Admin: 12/12/16 12:45 Dose: 4 mg Pantoprazole Sodium (Protonix Inj) 40 mg IVP DAILY [facility] Last Admin: 12/14/16 10:45 Dose: 40 mg Simethicone (Mylicon Chew Tab) 80 mg PO Q6H PRN PRN Reason: GI distress Last Admin: 12/14/16 10:45 Dose: 80 mg - Labs Labs: 12/14/16 08:21 12/14/16 08:27 PT 12.4 SECONDS (9.7-12.2) H 12/02/16 01:58 INR 1.1 12/02/16 01:58 APTT 25 SECONDS (21-34) 12/02/16 01:58 - Constitutional Appears: Non-toxic, No Acute Distress - Head Exam Head Exam: NORMAL INSPECTION - Eye Exam Eye Exam: EOMI - ENT Exam ENT Exam: Mucous Membranes Moist - Respiratory Exam Respiratory Exam: Clear to Ausculation Bilateral, NORMAL BREATHING PATTERN. absent: Rales, Rhonchi, Wheezes - Cardiovascular Exam Cardiovascular Exam: REGULAR RHYTHM, +S1, +S2 - GI/Abdominal Exam GI & Abdominal Exam: Soft, Hypoactive Bowel Sounds. absent: Distended, Firm, Guarding, Rigid, Tenderness, Rebound Additional comments: surgical site (epigastric) covering in dressing - Extremities Exam Extremities Exam: Normal Capillary Refill. absent: Pedal Edema, Tenderness - Neurological Exam Neurological Exam: Alert, Awake, Oriented x3 - Skin Skin Exam: Dry, Normal Color, Warm Assessment and Plan - Assessment and Plan (Free Text) Assessment: 66-year-old female with history of hypertension now admitted with the intestinal obstruction, small bowel, possibly surgical intervention needed emergency. 1) Small bowel obstruction * Surgery (Dr. Winter) on board-->help appreciated * white count downtrending * Completed small bowel series * Patient had bowel movement * Per surgery, continue to monitor * Flat Abdominal Xray (12/13/16): re demonstrated are multiple distended loops of small bowel which exhibit non differential air fluid levels. Dense contrast materal appears to opacify what may represent the cecum and proximal ascending colon and probably collapsed descending colon * CT Abdomen/Pelvis (12/11/16): dilated air and fluid filled small bowel loops. Slightly more conspicous than previous. Partial obstruction or early complete small bowel obstruction. Mild right sided hydronephrosis. Mosaic perfusion abnormality, Abdominal wall hematoma. mild pelvic ascites * Ciproflooxcin 200mg IV Q 12H (active since 12/09/16) * Flagyl 500ng IV Q8 (active since 12/09/16) * Colace 100mg PO bid 2) Hypertension * Cozaar 25mg PO daily * Norvasc 5mg PO daily 3) Rt hydroureter and hydro nephrosis * monitor * Patient is urinating 4) Leg edema * improving 5) elevated LFTs * stop percocet secondary to LFTs * will give Oxycodone 5mg PO Q 6 PRN pain 6) Prophylactic care * heparin 5000 units subq12 for DVT ppx * protonix 40mg IV q daily for GI ppx
[2016-12-14] MEDS: Bacitracin 500 Units/gm Oint Foilpak UD TOP SCH (16:50)
--- NOTE | 2016-12-14 17:45 | RAD ---
HISTORY: Ileus; follow-up up contrast movement COMPARISON: No comparison made with abdominal radiograph 12/13/2016 FINDINGS: BOWEL: Re- demonstrated is oral contrast material which appears be located in the cecum and ascending as well as collapsed descending colon. Persistent mild small bowel distention. BONES: Normal. OTHER FINDINGS: None. IMPRESSION: Oral contrast material appears to be located within the cecum and at ascending colon as well as the collapsed descending colon
[2016-12-14] MEDS: oxyCODONE 5 mg Immediate Release Tab PO PRN (18:16)
[2016-12-15] MEDS: Simethicone 80 mg Chewtab PO PRN ×3 (00:27→18:21)
[2016-12-15] MEDS: Ciprofloxacin 200mg/100ml D5W 100 ML IVPB SCH ×2 (06:00→18:12)
[2016-12-15 06:32] LABS: CHLORIDE 98 mmol/L (98-107); POTASSIUM 3.6 mmol/L (3.6-5.2); SODIUM 132 mmol/L (132-148)
[2016-12-15 06:34] LABS: BILIRUBIN,TOTAL 0.4 mg/dL (0.2-1.3); GFR AFRICAN-AMERICAN > 60
[2016-12-15 06:35] LABS: ALB/GLOB RATIO 0.9 (1.0-2.1); ALKALINE PHOSPHATASE 73 U/L (38-126); ALT/SGPT 80 U/L (9-52); AST/SGOT 69 U/L (14-36); BLOOD UREA NITROGEN 11 mg/dL (7-17); CALCIUM 8.5 mg/dl (8.6-10.4); CARBON DIOXIDE 24 mmol/L (22-30); GLUCOSE,RANDOM 86 mg/dL (65-105); MAGNESIUM 1.8 mg/dL (1.6-2.3); TOTAL PROTEIN 6.2 g/dL (6.3-8.3)
[2016-12-15 07:02] LABS: THYROID STIMULATING HORMONE 0.89 mIU/L (0.46-4.68)
[2016-12-15 08:09] LABS: BASO % 0.2 % (0.0-2.0); EOS # 0.2 K/uL (0.0-0.7); EOS % 1.1 % (0.0-4.0); HEMATOCRIT 25.5 % (34.0-47.0); LYMPH # 1.7 K/uL (1.0-4.3); LYMPH % 10.9 % (20.0-40.0); MEAN CELL VOLUME 77.3 fL (81.0-99.0); MEAN CORPUSCULAR HEMOGLOBIN 25.4 pg (27.0-31.0); MEAN CORPUSCULAR HGB CONC 32.8 g/dL (33.0-37.0); MEAN PLATELET VOLUME 7.8 fL (7.2-11.7); MONO # 1.5 K/uL (0.0-0.8); MONO % 9.7 % (0.0-10.0); NRBC % 0.1 % (0.0-2.0); RED CELL DISTRIBUTION WIDTH 17.8 % (11.5-14.5); WHITE BLOOD COUNT 15.4 K/uL (4.8-10.8)
--- NOTE | 2016-12-15 08:30 | CP.PCM.PN ---
Subjective - Date & Time of Evaluation Date of Evaluation: 12/15/16 Time of Evaluation: 06:30 - Subjective Subjective: General Surgery Dr. Winter Pt S&E @bedside. NAEO. (+) BM/Flatus. denies N/V, F/C. pain well controlled. Objective - Vital Signs/Intake and Output Vital Signs (last 24 hours): Temp Pulse Resp BP Pulse Ox 98.7 F 88 20 126/83 98 12/15/16 07:20 12/15/16 07:20 12/15/16 07:20 12/15/16 07:20 12/15/16 07:20 Intake and Output: 12/15/16 12/15/16 06:59 18:59 Intake Total 950 Balance 950 - Medications Medications: Current Medications Amlodipine Besylate (Norvasc) 5 mg PO DAILY [facility] Last Admin: 12/14/16 10:45 Dose: 5 mg Bacitracin (Bacitracin) 1 ea TOP DAILY@1600 [facility] Last Admin: 12/14/16 16:50 Dose: 1 ea Benzocaine/Menthol (Cepacol Sore Throat) 1 brandie MT Q1 PRN PRN Reason: Sore Throat Last Admin: 12/03/16 02:48 Dose: 1 brandie Bisacodyl (Dulcolax) 10 mg [place] ONCE PRN PRN Reason: Constipation Last Admin: 12/14/16 12:11 Dose: 10 mg Docusate Sodium (Colace) 100 mg PO BID [facility] Last Admin: 12/14/16 18:12 Dose: 100 mg Heparin Sodium (Porcine) (Heparin) 5,000 units SC Q12 [facility] Last Admin: 12/14/16 21:22 Dose: Not Given Ciprofloxacin (Cipro 200mg/100ml D5w) 100 mls @ 67 mls/hr IVPB Q12H [facility] Last Admin: 12/15/16 06:00 Dose: 67 mls/hr Dextrose/Sodium Chloride (Dextrose 5%/0.45% Ns 1000 Ml) 1,000 mls @ 50 mls/hr IV .Q20H [facility] Last Admin: 12/14/16 23:42 Dose: 50 mls/hr Lactic Acid (Lac-Hydrin 12% Lotion (225 G)) 1 gm EXT DAILY [facility] Last Admin: 12/14/16 12:18 Dose: 1 % Losartan Potassium (Cozaar) 25 mg PO DAILY [facility] Last Admin: 12/07/16 13:18 Dose: 25 mg Metoclopramide HCl (Reglan) 10 mg IVP Q6 [facility] Last Admin: 12/15/16 05:56 Dose: 10 mg Metoprolol Tartrate (Lopressor) 50 mg PO BID [facility] Last Admin: 12/14/16 18:16 Dose: 50 mg Ondansetron HCl (Zofran Inj) 4 mg IVP Q4 PRN PRN Reason: Nausea/Vomiting Last Admin: 12/12/16 12:45 Dose: 4 mg Oxycodone HCl (Oxycodone Immediate Release Tab) 5 mg PO Q6 PRN PRN Reason: Pain, severe (8-10) Last Admin: 12/14/16 18:16 Dose: 5 mg Pantoprazole Sodium (Protonix Inj) 40 mg IVP DAILY [facility] Last Admin: 12/14/16 10:45 Dose: 40 mg Simethicone (Mylicon Chew Tab) 80 mg PO Q6H PRN PRN Reason: GI distress Last Admin: 12/15/16 00:27 Dose: 80 mg - Labs Labs: 12/15/16 06:11 12/15/16 06:11 PT 12.4 SECONDS (9.7-12.2) H 12/02/16 01:58 INR 1.1 12/02/16 01:58 APTT 25 SECONDS (21-34) 12/02/16 01:58 - Constitutional Appears: Non-toxic, No Acute Distress - Head Exam Head Exam: NORMAL INSPECTION - Eye Exam Eye Exam: Normal appearance - ENT Exam ENT Exam: Mucous Membranes Moist - Respiratory Exam Respiratory Exam: NORMAL BREATHING PATTERN. absent: Accessory Muscle Use, Respiratory Distress - GI/Abdominal Exam GI & Abdominal Exam: Soft. absent: Distended, Guarding, Tenderness, Rebound Additional comments: dressing stained. incision c/d/i, well approximated abd binder in place - Extremities Exam Extremities Exam: Pedal Edema Additional comments: discolorations - Neurological Exam Neurological Exam: Alert, Awake, Oriented x3 - Psychiatric Exam Psychiatric exam: Normal Affect, Normal Mood - Skin Skin Exam: Dry, Warm Assessment and Plan - Assessment and Plan (Free Text) Assessment: 66 y/o F POD#13 s/p open incarcerated umbilical hernia repair w/ post-up ileus - resolving - advance to soft diet - encourage OOB to chair/Amb/IS use - cont stool softeners - monitor WBC - continued leukocytosis - cont medical management Pt seen and discussed w/ Dr. Moy Arrooy DO PGY2
--- NOTE | 2016-12-15 09:36 | RAD ---
Small bowel series History: Postoperative ileus. Comparison: CT scan dated 12/08/2015 Technique: Small bowel series was performed. Findings: Multiple dilated loops of small bowel seen on the payroll auditor view of the abdomen with fecal retention in the colon. Multiple dilated loops of small bowel noted as contrast extends through the small bowel. On 6 hour delayed images, some contrast is seen extending into the colon. Impression: Findings suggestive for a partial small bowel obstruction versus early complete small bowel obstruction with some delayed contrast at 6 hours extending into the colon. Multiple dilated loops of small bowel throughout the abdomen.
[2016-12-15] MEDS: oxyCODONE 5 mg Immediate Release Tab PO PRN ×2 (11:22→18:21)
[2016-12-15] MEDS: Ammonium Lactate 12% Lotion (225 g) EXT SCH (11:26)
[2016-12-15] MEDS: Bacitracin 500 Units/gm Oint Foilpak UD TOP SCH (16:00)
--- NOTE | 2016-12-15 21:13 | CP.PCM.PN ---
Subjective - Date & Time of Evaluation Date of Evaluation: 12/15/16 Time of Evaluation: 21:13 - Subjective Subjective: Is currently feeling much better. Bowel movements are good. Discussed with the surgical team. Possible discharge planning tomorrow Objective - Vital Signs/Intake and Output Vital Signs (last 24 hours): Temp Pulse Resp BP Pulse Ox 98.2 F 81 20 127/76 97 12/15/16 16:02 12/15/16 16:02 12/15/16 16:02 12/15/16 18:11 12/15/16 16:02 Intake and Output: 12/15/16 12/16/16 18:59 06:59 Intake Total 380 Balance 380 - Medications Medications: Current Medications Amlodipine Besylate (Norvasc) 5 mg PO DAILY [facility] Last Admin: 12/15/16 09:33 Dose: 5 mg Bacitracin (Bacitracin) 1 ea TOP DAILY@1600 [facility] Last Admin: 12/15/16 16:00 Dose: Not Given Benzocaine/Menthol (Cepacol Sore Throat) 1 brandie MT Q1 PRN PRN Reason: Sore Throat Last Admin: 12/03/16 02:48 Dose: 1 brandie Bisacodyl (Dulcolax) 10 mg [place] ONCE PRN PRN Reason: Constipation Last Admin: 12/14/16 12:11 Dose: 10 mg Docusate Sodium (Colace) 100 mg PO BID [facility] Last Admin: 12/15/16 18:12 Dose: 100 mg Heparin Sodium (Porcine) (Heparin) 5,000 units SC Q12 [facility] Last Admin: 12/15/16 10:00 Dose: Not Given Ciprofloxacin (Cipro 200mg/100ml D5w) 100 mls @ 67 mls/hr IVPB Q12H [facility] Last Admin: 12/15/16 18:12 Dose: 67 mls/hr Lactic Acid (Lac-Hydrin 12% Lotion (225 G)) 1 gm EXT DAILY [facility] Last Admin: 12/15/16 11:26 Dose: 1 % Losartan Potassium (Cozaar) 25 mg PO DAILY [facility] Last Admin: 12/07/16 13:18 Dose: 25 mg Metoclopramide HCl (Reglan) 10 mg IVP Q6 [facility] Last Admin: 12/15/16 18:12 Dose: 10 mg Metoprolol Tartrate (Lopressor) 50 mg PO BID [facility] Last Admin: 12/15/16 18:11 Dose: 50 mg Ondansetron HCl (Zofran Inj) 4 mg IVP Q4 PRN PRN Reason: Nausea/Vomiting Last Admin: 12/12/16 12:45 Dose: 4 mg Oxycodone HCl (Oxycodone Immediate Release Tab) 5 mg PO Q6 PRN PRN Reason: Pain, severe (8-10) Last Admin: 12/15/16 18:21 Dose: 5 mg Pantoprazole Sodium (Protonix Inj) 40 mg IVP DAILY [facility] Last Admin: 12/15/16 09:33 Dose: 40 mg Simethicone (Mylicon Chew Tab) 80 mg PO Q6H PRN PRN Reason: GI distress Last Admin: 12/15/16 18:21 Dose: 80 mg - Labs Labs: 12/15/16 06:11 12/15/16 06:11 PT 12.4 SECONDS (9.7-12.2) H 12/02/16 01:58 INR 1.1 12/02/16 01:58 APTT 25 SECONDS (21-34) 12/02/16 01:58
[2016-12-16] MEDS: oxyCODONE 5 mg Immediate Release Tab PO PRN ×3 (03:20→19:50)
[2016-12-16] MEDS: Ciprofloxacin 200mg/100ml D5W 100 ML IVPB SCH ×2 (06:56→19:01)
--- NOTE | 2016-12-16 09:19 | CP.PCM.PN ---
Subjective - Date & Time of Evaluation Date of Evaluation: 12/16/16 Time of Evaluation: 06:45 - Subjective Subjective: General Surgery Dr. Winter Pt S&E @bedside. NAEO. no complaints. denies F/C, N/V, abd pain. (+)BM/Flatus. tolerating diet. Objective - Vital Signs/Intake and Output Vital Signs (last 24 hours): Temp Pulse Resp BP Pulse Ox 98.4 F 93 H 18 127/81 97 12/16/16 07:20 12/16/16 07:20 12/16/16 07:20 12/16/16 07:20 12/16/16 07:20 Intake and Output: 12/16/16 12/16/16 06:59 18:59 Intake Total 300 Balance 300 - Medications Medications: Current Medications Amlodipine Besylate (Norvasc) 5 mg PO DAILY [facility] Last Admin: 12/15/16 09:33 Dose: 5 mg Bacitracin (Bacitracin) 1 ea TOP DAILY@1600 [facility] Last Admin: 12/15/16 16:00 Dose: Not Given Benzocaine/Menthol (Cepacol Sore Throat) 1 brandie MT Q1 PRN PRN Reason: Sore Throat Last Admin: 12/03/16 02:48 Dose: 1 brandie Bisacodyl (Dulcolax) 10 mg [place] ONCE PRN PRN Reason: Constipation Last Admin: 12/14/16 12:11 Dose: 10 mg Docusate Sodium (Colace) 100 mg PO BID [facility] Last Admin: 12/15/16 18:12 Dose: 100 mg Heparin Sodium (Porcine) (Heparin) 5,000 units SC Q12 [facility] Last Admin: 12/15/16 21:17 Dose: Not Given Ciprofloxacin (Cipro 200mg/100ml D5w) 100 mls @ 67 mls/hr IVPB Q12H [facility] Last Admin: 12/16/16 06:56 Dose: 67 mls/hr Lactic Acid (Lac-Hydrin 12% Lotion (225 G)) 1 gm EXT DAILY [facility] Last Admin: 12/15/16 11:26 Dose: 1 % Losartan Potassium (Cozaar) 25 mg PO DAILY [facility] Last Admin: 12/07/16 13:18 Dose: 25 mg Metoclopramide HCl (Reglan) 10 mg IVP Q6 [facility] Last Admin: 12/16/16 06:25 Dose: Not Given Metoprolol Tartrate (Lopressor) 50 mg PO BID [facility] Last Admin: 12/15/16 18:11 Dose: 50 mg Ondansetron HCl (Zofran Inj) 4 mg IVP Q4 PRN PRN Reason: Nausea/Vomiting Last Admin: 12/12/16 12:45 Dose: 4 mg Oxycodone HCl (Oxycodone Immediate Release Tab) 5 mg PO Q6 PRN PRN Reason: Pain, severe (8-10) Last Admin: 12/16/16 03:20 Dose: 5 mg Pantoprazole Sodium (Protonix Inj) 40 mg IVP DAILY [facility] Last Admin: 12/15/16 09:33 Dose: 40 mg Simethicone (Mylicon Chew Tab) 80 mg PO Q6H PRN PRN Reason: GI distress Last Admin: 12/15/16 18:21 Dose: 80 mg - Labs Labs: 12/15/16 06:11 12/15/16 06:11 PT 12.4 SECONDS (9.7-12.2) H 12/02/16 01:58 INR 1.1 12/02/16 01:58 APTT 25 SECONDS (21-34) 12/02/16 01:58 - Constitutional Appears: Non-toxic, No Acute Distress - Head Exam Head Exam: NORMAL INSPECTION - Eye Exam Eye Exam: Normal appearance - ENT Exam ENT Exam: Mucous Membranes Moist - Neck Exam Neck Exam: Normal Inspection - Respiratory Exam Respiratory Exam: NORMAL BREATHING PATTERN. absent: Accessory Muscle Use, Respiratory Distress - Cardiovascular Exam Cardiovascular Exam: absent: Bradycardia, Tachycardia - GI/Abdominal Exam GI & Abdominal Exam: Soft. absent: Distended, Guarding, Tenderness, Rebound Additional comments: incision c/d/i - Extremities Exam Extremities Exam: Normal Inspection - Neurological Exam Neurological Exam: Alert, Awake, Oriented x3 - Psychiatric Exam Psychiatric exam: Normal Affect, Normal Mood - Skin Skin Exam: Dry, Normal Color, Warm Assessment and Plan - Assessment and Plan (Free Text) Assessment: 66 y/o F POD#14 s/p repair of incarcerated ventral hernia w/ resolved post-op ileus - advance diet as tolerated - cont pain management - continued leukocytosis - f/u AM CBC - encourage OOB to chair/Amb/IS use Pt discussed w/ Dr. Moy Arroyo DO PGY2
[2016-12-16] MEDS: Ammonium Lactate 12% Lotion (225 g) EXT SCH (10:12)
[2016-12-16 12:08] LABS: BASO # 0.1 K/uL (0.0-0.2); BASO % 0.6 % (0.0-2.0); EOS # 0.2 K/uL (0.0-0.7); EOS % 1.9 % (0.0-4.0); HEMATOCRIT 26.6 % (34.0-47.0); LYMPH # 1.6 K/uL (1.0-4.3); LYMPH % 13.8 % (20.0-40.0); MEAN CELL VOLUME 76.7 fL (81.0-99.0); MEAN CORPUSCULAR HEMOGLOBIN 25.4 pg (27.0-31.0); MEAN CORPUSCULAR HGB CONC 33.1 g/dL (33.0-37.0); MEAN PLATELET VOLUME 7.6 fL (7.2-11.7); MONO % 8.8 % (0.0-10.0); RED CELL DISTRIBUTION WIDTH 17.5 % (11.5-14.5); WHITE BLOOD COUNT 11.5 K/uL (4.8-10.8)
[2016-12-16] MEDS: Simethicone 80 mg Chewtab PO PRN ×2 (12:20→18:46)
[2016-12-16] MEDS: Bacitracin 500 Units/gm Oint Foilpak UD TOP SCH (19:00)
[2016-12-16] MEDS ORDERED: oxyCODONE 5 mg Immediate Release Tab PO STA (22:59)
[2016-12-17 00:21] VITALS: PULSE 76
[2016-12-17 08:57] VITALS: RESP 18; TEMP 98.4; O2SAT 98
[2016-12-17] MEDS ORDERED: Pantoprazole 40 mg EC Tab PO SCH (10:00)
[2016-12-17] MEDS: Simethicone 80 mg Chewtab PO PRN (10:37)
[2016-12-17 10:39] VITALS: BP 129/70
[2016-12-17] MEDS: Ammonium Lactate 12% Lotion (225 g) EXT SCH (10:42)
[2016-12-17 11:54] LABS: HEMATOCRIT 26.7 % (34.0-47.0); MEAN CELL VOLUME 77.2 fL (81.0-99.0); MEAN CORPUSCULAR HEMOGLOBIN 25.5 pg (27.0-31.0); MEAN PLATELET VOLUME 7.5 fL (7.2-11.7); RED CELL DISTRIBUTION WIDTH 17.8 % (11.5-14.5)
--- NOTE | 2016-12-17 12:53 | CP.PCM.PN ---
Subjective - Date & Time of Evaluation Date of Evaluation: 12/17/16 Time of Evaluation: 12:53 - Subjective Subjective: PT CLEARED FOR D/C HOME TODAY PER SURGERY AND DR. SANCHEZ. WBC NORMAL (SEE CBC RESULTS). NO NEED TO RX ABX PO PER DR. OAKLEY. SHE WILL F/U WITH HIM IN THE OFFICE WITHIN 1 WEEK. TO F/U WITH DR. ROCHA IN THE OFFICE IN 1 WEEK ALSO FOR MAGNUS REMOVAL. SURGICAL SITE AND LEFT LOWER LEG WOUND CARE EXPLAINED AT LENGTH TO PT. RX GIVEN FOR PAIN MEDICINE. PT VERBALIZES UNDERSTANDING OF ALL F/ U AND D/C PLANS. AT BEDSIDE TO TAKE HER HOME. NO FURTHER ORDERS. Objective - Vital Signs/Intake and Output Vital Signs (last 24 hours): Temp Pulse Resp BP Pulse Ox 98.4 F 76 18 129/70 98 12/17/16 07:20 12/17/16 07:20 12/17/16 07:20 12/17/16 10:38 12/17/16 07:20 Intake and Output: 12/17/16 12/17/16 06:59 18:59 Intake Total 720 Balance 720 - Medications Medications: Current Medications Amlodipine Besylate (Norvasc) 5 mg PO DAILY [facility] Last Admin: 12/17/16 10:37 Dose: 5 mg Bacitracin (Bacitracin) 1 ea TOP DAILY@1600 [facility] Last Admin: 12/16/16 19:00 Dose: Not Given Benzocaine/Menthol (Cepacol Sore Throat) 1 brandie MT Q1 PRN PRN Reason: Sore Throat Last Admin: 12/03/16 02:48 Dose: 1 brandie Bisacodyl (Dulcolax) 10 mg [place] ONCE PRN PRN Reason: Constipation Last Admin: 12/14/16 12:11 Dose: 10 mg Ciprofloxacin (Cipro) 250 mg PO BID [facility] Last Admin: 12/17/16 10:41 Dose: 250 mg Docusate Sodium (Colace) 100 mg PO BID [facility] Last Admin: 12/17/16 10:37 Dose: 100 mg Heparin Sodium (Porcine) (Heparin) 5,000 units SC Q12 [facility] Last Admin: 12/17/16 10:42 Dose: Not Given Lactic Acid (Lac-Hydrin 12% Lotion (225 G)) 1 gm EXT DAILY [facility] Last Admin: 12/17/16 10:42 Dose: 1 % Losartan Potassium (Cozaar) 25 mg PO DAILY [facility] Last Admin: 12/07/16 13:18 Dose: 25 mg Metoclopramide HCl (Reglan) 10 mg IVP Q6 [facility] Last Admin: 12/17/16 06:19 Dose: Not Given Metoprolol Tartrate (Lopressor) 50 mg PO BID [facility] Last Admin: 12/17/16 10:38 Dose: 50 mg Ondansetron HCl (Zofran Inj) 4 mg IVP Q4 PRN PRN Reason: Nausea/Vomiting Last Admin: 12/12/16 12:45 Dose: 4 mg Oxycodone HCl (Oxycodone Immediate Release Tab) 5 mg PO Q6 PRN PRN Reason: Pain, severe (8-10) Last Admin: 12/16/16 19:50 Dose: 5 mg Pantoprazole Sodium (Protonix Ec Tab) 40 mg PO DAILY [facility] Last Admin: 12/17/16 10:38 Dose: 40 mg Simethicone (Mylicon Chew Tab) 80 mg PO Q6H PRN PRN Reason: GI distress Last Admin: 12/17/16 10:37 Dose: 80 mg - Labs Labs: 12/17/16 11:48 12/15/16 06:11 PT 12.4 SECONDS (9.7-12.2) H 12/02/16 01:58 INR 1.1 12/02/16 01:58 APTT 25 SECONDS (21-34) 12/02/16 01:58
--- NOTE | 2016-12-17 14:42 | CP.PCM.PN ---
Subjective - Date & Time of Evaluation Date of Evaluation: 12/17/16 Time of Evaluation: 06:45 - Subjective Subjective: General Surgery Dr. Winter Pt S&E @bedside. NATannerO. pt w/ no complaints. denies F/C, N/V, abd pain, D/C. pt tolerating regular diet. Objective - Vital Signs/Intake and Output Vital Signs (last 24 hours): Temp Pulse Resp BP Pulse Ox 98.4 F 76 18 129/70 98 12/17/16 07:20 12/17/16 07:20 12/17/16 07:20 12/17/16 10:38 12/17/16 07:20 Intake and Output: 12/17/16 12/17/16 06:59 18:59 Intake Total 720 Balance 720 - Medications Medications: Current Medications Amlodipine Besylate (Norvasc) 5 mg PO DAILY [facility] Last Admin: 12/17/16 10:37 Dose: 5 mg Bacitracin (Bacitracin) 1 ea TOP DAILY@1600 [facility] Last Admin: 12/16/16 19:00 Dose: Not Given Benzocaine/Menthol (Cepacol Sore Throat) 1 brandie MT Q1 PRN PRN Reason: Sore Throat Last Admin: 12/03/16 02:48 Dose: 1 brandie Bisacodyl (Dulcolax) 10 mg [place] ONCE PRN PRN Reason: Constipation Last Admin: 12/14/16 12:11 Dose: 10 mg Ciprofloxacin (Cipro) 250 mg PO BID [facility] Last Admin: 12/17/16 10:41 Dose: 250 mg Docusate Sodium (Colace) 100 mg PO BID [facility] Last Admin: 12/17/16 10:37 Dose: 100 mg Heparin Sodium (Porcine) (Heparin) 5,000 units SC Q12 [facility] Last Admin: 12/17/16 10:42 Dose: Not Given Lactic Acid (Lac-Hydrin 12% Lotion (225 G)) 1 gm EXT DAILY [facility] Last Admin: 12/17/16 10:42 Dose: 1 % Losartan Potassium (Cozaar) 25 mg PO DAILY [facility] Last Admin: 12/07/16 13:18 Dose: 25 mg Metoclopramide HCl (Reglan) 10 mg IVP Q6 [facility] Last Admin: 12/17/16 06:19 Dose: Not Given Metoprolol Tartrate (Lopressor) 50 mg PO BID [facility] Last Admin: 12/17/16 10:38 Dose: 50 mg Ondansetron HCl (Zofran Inj) 4 mg IVP Q4 PRN PRN Reason: Nausea/Vomiting Last Admin: 12/12/16 12:45 Dose: 4 mg Oxycodone HCl (Oxycodone Immediate Release Tab) 5 mg PO Q6 PRN PRN Reason: Pain, severe (8-10) Last Admin: 12/16/16 19:50 Dose: 5 mg Pantoprazole Sodium (Protonix Ec Tab) 40 mg PO DAILY [facility] Last Admin: 12/17/16 10:38 Dose: 40 mg Simethicone (Mylicon Chew Tab) 80 mg PO Q6H PRN PRN Reason: GI distress Last Admin: 12/17/16 10:37 Dose: 80 mg - Labs Labs: 12/17/16 11:48 12/15/16 06:11 PT 12.4 SECONDS (9.7-12.2) H 12/02/16 01:58 INR 1.1 12/02/16 01:58 APTT 25 SECONDS (21-34) 12/02/16 01:58 - Constitutional Appears: Non-toxic, No Acute Distress - Head Exam Head Exam: NORMAL INSPECTION - Eye Exam Eye Exam: Normal appearance - ENT Exam ENT Exam: Mucous Membranes Moist - Respiratory Exam Respiratory Exam: NORMAL BREATHING PATTERN. absent: Accessory Muscle Use, Respiratory Distress - Cardiovascular Exam Cardiovascular Exam: absent: Bradycardia, Tachycardia - GI/Abdominal Exam GI & Abdominal Exam: Soft. absent: Distended, Guarding, Tenderness, Rebound Additional comments: incision c/d/i - Neurological Exam Neurological Exam: Alert, Awake, Oriented x3 - Psychiatric Exam Psychiatric exam: Normal Affect, Normal Mood - Skin Skin Exam: Dry, Intact, Normal Color, Warm Assessment and Plan - Assessment and Plan (Free Text) Assessment: 66 y/o F POD#15 s/p repair of incarcerated ventral hernia - cont pain management - cont medical management - pt cleared for discharge from surgical standpoint - pt to f/u w/ Dr. Winter in office w/in 1 week Pt discussed w/ Dr. Moy Arroyo DO PGY2
--- NOTE | 2016-12-29 20:30 | CP.PCM.DIS ---
Provider - Provider Date of Admission: 12/02/16 07:28 Attending physician: Aylin Sanchez MD Time Spent in preparation of Discharge (in minutes): 5 Hospital Course - Lab Results Lab Results: Micro Results 12/10/16 19:00 Blood Blood Culture - Final NO GROWTH AFTER 5 DAYS 12/10/16 19:00 Blood Gram Stain - Final TEST NOT PERFORMED 12/10/16 16:00 Blood Blood Culture - Final NO GROWTH AFTER 5 DAYS 12/10/16 16:00 Blood Gram Stain - Final TEST NOT PERFORMED 12/10/16 16:08 Urine,Clean Catch Urine Culture - Final 50-100,000 CFU/ML. MULTIPLE SPECIES. SUGGEST REPEAT SPECIMEM. 12/04/16 19:30 Blood Blood Culture - Final NO GROWTH AFTER 5 DAYS 12/04/16 19:30 Blood Gram Stain - Final TEST NOT PERFORMED 12/04/16 12:34 Blood Blood Culture - Final NO GROWTH AFTER 5 DAYS 12/04/16 12:34 Blood Gram Stain - Final TEST NOT PERFORMED Most Recent Lab Values WBC 10.0 K/uL (4.8-10.8) 12/17/16 11:48 RBC 3.46 Mil/uL (3.80-5.20) L 12/17/16 11:48 Hgb 8.8 g/dL (11.0-16.0) L 12/17/16 11:48 Hct 26.7 % (34.0-47.0) L 12/17/16 11:48 MCV 77.2 fL (81.0-99.0) L 12/17/16 11:48 MCH 25.5 pg (27.0-31.0) L 12/17/16 11:48 MCHC 33.0 g/dL (33.0-37.0) 12/17/16 11:48 RDW 17.8 % (11.5-14.5) H 12/17/16 11:48 Plt Count 818 K/uL (130-400) H 12/17/16 11:48 MPV 7.5 fL (7.2-11.7) 12/17/16 11:48 Neut % (Auto) 74.9 % (50.0-75.0) 12/16/16 11:59 Lymph % (Auto) 13.8 % (20.0-40.0) L 12/16/16 11:59 [place] % (Auto) 8.8 % (0.0-10.0) 12/16/16 11:59 Eos % (Auto) 1.9 % (0.0-4.0) 12/16/16 11:59 Baso % (Auto) 0.6 % (0.0-2.0) 12/16/16 11:59 Neut # 8.6 K/uL (1.8-7.0) H 12/16/16 11:59 Lymph # 1.6 K/uL (1.0-4.3) 12/16/16 11:59 [place] # 1.0 K/uL (0.0-0.8) H 12/16/16 11:59 Eos # 0.2 K/uL (0.0-0.7) 12/16/16 11:59 Baso # 0.1 K/uL (0.0-0.2) 12/16/16 11:59 Neutrophils % (Manual) 81 % (50-75) H 12/14/16 08:21 Band Neutrophils % 2 % (0-2) 12/13/16 06:31 Lymphocytes % (Manual) 11 % (20-40) L 12/14/16 08:21 Reactive Lymphs % 1 % (0-0) H 12/14/16 08:21 Monocytes % (Manual) 7 % (0-10) 12/14/16 08:21 Eosinophils % (Manual) 2 % (0-4) 12/13/16 06:31 Basophils % (Manual) 1 % (0-2) 12/12/16 12:05 Metamyelocytes % 1 % (0-0) H 12/13/16 06:31 Myelocytes % 1 % (0-0) H 12/13/16 06:31 Differential Comment 12/17/16 11:48 Toxic Granulation Present 12/13/16 06:31 Platelet Estimate Increased (NORMAL) H 12/14/16 08:21 Large Platelets Present 12/14/16 08:21 Polychromasia Slight 12/14/16 08:21 Hypochromasia (manual) Slight 12/14/16 08:21 Poikilocytosis (manual Slight 12/14/16 08:21 Anisocytosis (manual) Slight 12/14/16 08:21 Microcytosis (manual) Moderate 12/14/16 08:21 Macrocytosis (manual) Slight 12/14/16 08:21 Target Cells Slight 12/12/16 12:05 Ovalocytes Slight 12/14/16 08:21 Smear Path Review 12/17/16 11:48 PT 12.4 SECONDS (9.7-12.2) H 12/02/16 01:58 INR 1.1 12/02/16 01:58 APTT 25 SECONDS (21-34) 12/02/16 01:58 Sodium 132 mmol/L (132-148) 12/15/16 06:11 Potassium 3.6 mmol/L (3.6-5.2) 12/15/16 06:11 Chloride 98 mmol/L (98-107) 12/15/16 06:11 Carbon Dioxide 24 mmol/L (22-30) 12/15/16 06:11 Anion Gap 14 (10-20) 12/15/16 06:11 BUN 11 mg/dL (7-17) 12/15/16 06:11 Creatinine 0.9 MG/DL (0.7-1.2) 12/15/16 06:11 Est GFR ( Amer) > 60 12/15/16 06:11 Est GFR (Non-Af Amer) > 60 12/15/16 06:11 Random Glucose 86 mg/dL (65-105) 12/15/16 06:11 Calcium 8.5 mg/dl (8.6-10.4) L 12/15/16 06:11 Magnesium 1.8 mg/dL (1.6-2.3) 12/15/16 06:11 Total Bilirubin 0.4 mg/dL (0.2-1.3) 12/15/16 06:11 AST 69 U/L (14-36) H D 12/15/16 06:11 ALT 80 U/L (9-52) H 12/15/16 06:11 Alkaline Phosphatase 73 U/L (38-126) 12/15/16 06:11 Total Creatine Kinase 172 U/L (30-135) H 12/03/16 06:38 CK-MB (Mass) 2.03 ng/mL (0.0-3.38) 12/03/16 06:38 Troponin I 0.0430 ng/mL (0.00-0.120) 12/02/16 20:21 Troponin I, Quant 0.0280 ng/mL (0.00-0.120) 12/03/16 06:38 Total Protein 6.2 g/dL (6.3-8.3) L 12/15/16 06:11 Albumin 3.0 g/dL (3.5-5.0) L 12/15/16 06:11 Globulin 3.3 gm/dL (2.2-3.9) 12/15/16 06:11 Albumin/Globulin Ratio 0.9 (1.0-2.1) L 12/15/16 06:11 Lipase 69 U/L (23-300) 12/02/16 01:58 Procalcitonin 1.09 NG/ML (0.19-0.49) H 12/02/16 09:44 TSH 3rd Generation 0.89 mIU/L (0.46-4.68) 12/15/16 06:11 Urine Color [place] (YELLOW) 12/10/16 16:50 Urine Clarity Hazy (Clear) 12/10/16 16:50 Urine pH 5.0 (5.0-8.0) 12/10/16 16:50 Ur Specific [place] 1.028 (1.003-1.030) 12/10/16 16:50 Urine Protein 1+ mg/dL (NEGATIVE) H 12/10/16 16:50 Urine Glucose (UA) Normal mg/dL (Normal) 12/10/16 16:50 Urine Ketones 1+ mg/dL (NEGATIVE) H 12/10/16 16:50 Urine Blood Negative (NEGATIVE) 12/10/16 16:50 Urine Nitrate Negative (NEGATIVE) 12/10/16 16:50 Urine Bilirubin Negative (NEGATIVE) 12/10/16 16:50 Urine Urobilinogen Normal mg/dL (0.2-1.0) 12/10/16 16:50 Ur Leukocyte Esterase Trace April/uL (Negative) 12/10/16 16:50 Urine WBC (Auto) 23 /hpf (0-5) H 12/10/16 16:50 Urine RBC (Auto) 12 /hpf (0-3) H 12/10/16 16:50 Ur Squamous Epith Cells 28 /hpf (0-5) H 12/10/16 16:50 Urine Bacteria Rare (<OCC) 12/10/16 16:50 Hepatitis A IgM Ab Negative (NEGATIVE) 12/15/16 06:11 Hep Bs Antigen Negative (NEGATIVE) 12/15/16 06:11 Hep B Core IgM Ab Negative (NEGATIVE) 12/15/16 06:11 Hepatitis C Antibody Negative (NEGATIVE) 12/15/16 06:11 Blood Type O NEGATIVE 12/02/16 10:34 Antibody Screen Negative 12/02/16 10:34 - Hospital Course Hospital Course: Chief complaint: Abdominal pain History present illness: 66-year-old female with history of long-standing hypertension, came to the emergency room with the worsening abdominal pain. Pain started gradually over the course of 3 days, associated with the nausea. The pain was over the umbilical area, radiating to the upper abdomen. Associated with vomiting. Vomiting mostly of bilious in character. The discomfort still noted. She was not able to eat well. Last night her symptoms got worse, today she was not able to eat anything, and he came to the emergency room. She did not have any history of surgical intervention in the past. Past medical history: Hypertension, on medications. Denies any asthma, or any diabetes. Surgical history: None Allergies: Allergic to penicillin Personal history: Nonsmoker nonalcoholic. 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 Review of system: Currently having no headache. Denies any chest pain, no cough or cold noted. Abdominal pain, associated with the nausea and vomiting Vital signs reviewed No neck vein distention noted Chest good air entry bilaterally, no wheezing or rales noted CVS regular heart sound, no murmur noted Periumbilical swelling and tenderness noted. 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 CT of the abdomen showing evidence of small bowel obstruction with the incarcerated hernia Patient was seen by surgical team already. Scheduled to have the surgery. Assessment and recommendation: 66-year-old female with history of hypertension now admitted with the intestinal obstruction, small bowel, possibly surgical intervention needed emergency. Spoke to the family in details. Patient will need a surgical intervention. Routine postoperative care needed at this time. Blood pressure control. DVT and GI prophylaxis. And will follow the patient. Discussed with the surgical team. course in the hospital The patient underwent a surgical intervention. Incarcerated ventral hernia repair done, with the abdominal mesh placement. Postoperatively patient doubted significant ileus, and a recurrent intestinal obstruction. Slowly her condition improved. Patient also developed renal insufficiency. Pulmonary edema. Which was treated with the diuretics. Cardiology portion was called. Clinically improved me Final diagnosis: In incarcerated ventral hernia, status post surgery. Acute pulmonary edema. Acute respiratory failure. acute renal insufficiency. Recurrent intestinal obstruction. Patient is clinical stable. She will be discharged home, follow up as an outpatient. She will continue to take rest in the house Discharge Exam - Head Exam Head Exam: NORMAL INSPECTION Discharge Plan - Discharge Medications Prescriptions: Bacitracin 1 ea TOP DAILY@1600 #30 fp Docusate [Colace] 100 mg PO TID #90 cap Losartan [Cozaar] 25 mg PO DAILY #30 tab Metoprolol Tartrate [Lopressor] 50 mg PO BID #60 tab Polyethylene Glycol 3350 [Miralax] 17 gm PO DAILY PRN #30 packet PRN Reason: Constipation amLODIPine [Norvasc] 5 mg PO DAILY #30 tab oxyCODONE [oxyCODONE Immediate Release Tab] 5 mg PO Q6 PRN #20 tab PRN Reason: Pain, Severe (8-10) Metoclopramide [Reglan] 10 mg PO Q8 PRN #30 tab PRN Reason: Nausea/Vomiting - Follow Up Plan Condition: FAIR Disposition: HOME/ ROUTINE Instructions: Metoprolol (By mouth), Metoclopramide (By mouth), Laxative, Stool Softeners (By mouth), Oxycodone, Rapid Release (By mouth), Amlodipine (By mouth), Losartan (By mouth), Polyethylene Glycol 3350 (By mouth), Bacitracin ( On the skin), Heart Healthy Diet (DC), Open Herniorrhaphy (DC), Umbilical Hernia (DC), Bowel Obstruction (DC) Additional Instructions: FOLLOW UP WITH DR. SANCHEZ IN THE OFFICE IN 1 WEEK---CALL FOR APPOINTMENT TIME. FOLLOW UP WITH DR. ROCHA IN THE OFFICE NEXT WEEK PER HIS INSTRUCTIONS---CALL FOR APPOINTMENT TIME. KEEP YOUR ABDOMINAL MAGNUS CLEAN AND DRY; MAY KEEP COVERED WITH A GAUZE. REPORT TO YOUR DOCTOR ANY REDNESS, PUS, SWELLING TO SITE, OPENING OF THE SURGICAL SITE, AND MAGNUS FALLING OUT BEFORE YOUR SCHEDULED VISIT WITH DR. ROCHA. CARE FOR YOUR INCISION SITE: CLEAN WITH SALINE, APPLY BACITRACIN, AND CLEAN/ DRY DRESSING ONCE A DAY AND NEEDED. AMBULATE MUCH POSSIBLE TO DECREASE YOUR RISK OF CONSTIPATION AND PNEUMONIA POST-PROCEDURE. ALSO CONTINUE USING THE INCENTIVE SPIROMETRY FOR YOUR BREATHING. CONTINUE YOUR HOME MEDICATIONS USUAL. NEW MEDICATIONS INCLUDE: COLACE (TAKE 3 TIMES A DAY UNTIL YOU HAVE REGULAR BOWEL MOVEMENTS THEN DECREASE TO TWICE OR ONCE A DAY); MIRALAX ( NEEDED ONCE A DAY IF YOU HAVE CONSTIPATION); NORVASC, METOPROLOL, AND COZAAR (FOR BLOOD PRESSURE); OXYCODONE (EVERY 6 HOURS NEEDED FOR PAIN). FOR FURTHER QUESTIONS OR CONCERNS, CONTACT DR. SANCHEZ OR DR. ROCHA. Referrals: Jorge Luis Rocha Jr., MD [Staff Provider] - Aylin Sanchez MD [Staff Provider] - Rose Vera MD [Staff Provider] -
--- NOTE | 2016-12-29 20:30 | CP.PCM.PN ---
Subjective - Date & Time of Evaluation Date of Evaluation: 12/10/16 Time of Evaluation: 20:30 - Subjective Subjective: Patient is still having abdominal discomfort, nausea. Poor intake noted. Bowel movements are less. Vital signs stable clinic A stable. Awaiting for bowel movements. Clinically otherwise stable Assessment and compression: 66-year-old female hypertension admitted with intestinal obstruction. Status post a surgery. Still not improving. Nothing by mouth will follow the patient Objective - Vital Signs/Intake and Output Vital Signs (last 24 hours): Temp Pulse Resp BP Pulse Ox 98.4 F 76 18 129/70 98 12/17/16 07:20 12/17/16 07:20 12/17/16 07:20 12/17/16 10:38 12/17/16 07:20 - Labs Labs: 12/17/16 11:48 12/15/16 06:11 PT 12.4 SECONDS (9.7-12.2) H 12/02/16 01:58 INR 1.1 12/02/16 01:58 APTT 25 SECONDS (21-34) 12/02/16 01:58
--- NOTE | 2016-12-29 20:30 | CP.PCM.PN ---
Subjective - Date & Time of Evaluation Date of Evaluation: 12/11/16 Time of Evaluation: 20:30 - Subjective Subjective: Patient is still having abdominal discomfort, nausea. Poor intake noted. Bowel movements are less. Vital signs stable clinic A stable. Awaiting for bowel movements. Clinically otherwise stable Assessment and compression: 66-year-old female hypertension admitted with intestinal obstruction. Status post a surgery. Still not improving. Nothing by mouth will follow the patient Objective - Vital Signs/Intake and Output Vital Signs (last 24 hours): Temp Pulse Resp BP Pulse Ox 98.4 F 76 18 129/70 98 12/17/16 07:20 12/17/16 07:20 12/17/16 07:20 12/17/16 10:38 12/17/16 07:20 - Labs Labs: 12/17/16 11:48 12/15/16 06:11 PT 12.4 SECONDS (9.7-12.2) H 12/02/16 01:58 INR 1.1 12/02/16 01:58 APTT 25 SECONDS (21-34) 12/02/16 01:58
--- NOTE | 2016-12-29 20:31 | CP.PCM.PN ---
Subjective - Date & Time of Evaluation Date of Evaluation: 12/14/16 Time of Evaluation: 20:31 - Subjective Subjective: Tolerating the liquid diet. We'll continue to monitor. No abdominal pain. Currently not taking much pain medication. Receiving antihypertensives. Objective - Vital Signs/Intake and Output Vital Signs (last 24 hours): Temp Pulse Resp BP Pulse Ox 98.4 F 76 18 129/70 98 12/17/16 07:20 12/17/16 07:20 12/17/16 07:20 12/17/16 10:38 12/17/16 07:20 - Labs Labs: 12/17/16 11:48 12/15/16 06:11 PT 12.4 SECONDS (9.7-12.2) H 12/02/16 01:58 INR 1.1 12/02/16 01:58 APTT 25 SECONDS (21-34) 12/02/16 01:58
--- NOTE | 2016-12-29 20:37 | CP.PCM.PN ---
Subjective - Date & Time of Evaluation Date of Evaluation: 12/16/16 Time of Evaluation: 20:37 - Subjective Subjective: patient is clinical stable. Continue the current treatment. Discharge plan tomorrow Objective - Vital Signs/Intake and Output Vital Signs (last 24 hours): Temp Pulse Resp BP Pulse Ox 98.4 F 76 18 129/70 98 12/17/16 07:20 12/17/16 07:20 12/17/16 07:20 12/17/16 10:38 12/17/16 07:20 - Labs Labs: 12/17/16 11:48 12/15/16 06:11 PT 12.4 SECONDS (9.7-12.2) H 12/02/16 01:58 INR 1.1 12/02/16 01:58 APTT 25 SECONDS (21-34) 12/02/16 01:58
== END 2016-12-17 15:44 | disposition home or self-care (01) | DRG 353 ==
LOC: C.ER 01:27 → C.9E 07:28 → C.6T 21:58
PROVIDERS: ADMIT Internal Medicine; ATTEND Internal Medicine
PROC: 0WUF0JZ Supplement Abdominal Wall with Synthetic Substitute, Open Approach (ICD-10-PCS; principal; 2016-12-02 10:00)
DX: K43.6 Other and unspecified ventral hernia with obstruction, without gangrene (principal); J96.01 Acute respiratory failure with hypoxia; I47.2 Ventricular tachycardia; R18.8 Other ascites; I11.0 Hypertensive heart disease with heart failure; I50.9 Heart failure, unspecified; N13.30 Unspecified hydronephrosis; K56.7 Ileus, unspecified; K91.89 Other postprocedural complications and disorders of digestive system; I48.0 Paroxysmal atrial fibrillation; D72.829 Elevated white blood cell count, unspecified; H40.9 Unspecified glaucoma; S81.802A Unspecified open wound, left lower leg, initial encounter; Z79.899 Other long term (current) drug therapy; Z87.891 Personal history of nicotine dependence